=== PATIENT | female | born 1955 | race Caucasian/White ===

== ENCOUNTER 2018-01-05 09:27 | Inpatient (IN) | payer OTHER, MEDICAID ==
[2018-01-05 09:56] LABS: PLATELET COUNT 312 10^3/uL (150-400)
[2018-01-05 10:04] LABS: INR 1.06 (0.83-1.16)
[2018-01-05] MEDS ORDERED: HYDROmorphONE/DILAUDID 1 MG/ML INJ IVP ONE (10:13)
[2018-01-05] MEDS ORDERED: NS 500 ML IV ONE (10:21)
[2018-01-05] MEDS: HYDROmorphONE/DILAUDID 2 MG/ML INJ IVP ONE ×2 (10:36→13:04)
--- NOTE | 2018-01-05 10:39 | EDPHY ---
H & P Time Seen by Provider: 01/05/18 09:32 HPI/ROS: HPI Fell out of bed on Thursday. Left-sided chest wall pain, left wrist pain. 62-year-old female by ambulance. She is with her daughter. This patient reports that she thinks she fell off her bed Thursday night landing hard on her left side and left wrist. Her daughter saw her yesterday and she was complaining of left wrist pain with a deformity and associated ecchymosis as well as left-sided chest wall pain. She refused to come to the hospital at that time. Her pain has worsened overnight and she has increased shortness of breath, she presents with her daughter by ambulance this morning. Patient's last meal was Thursday. ROS: Constitutional: No fever, no chills. As above. Eyes: No discharge. No changes in vision. ENT: No sore throat. No nasal congestion or rhinorrhea. Respiratory: No cough. As above. Cardiac: As above, no palpitations. Gastrointestinal: No abdominal pain, no vomiting, no diarrhea. Genitourinary: No hematuria. No dysuria or increased frequency with urination. Musculoskeletal: No back pain. No neck pain. Left wrist pain and deformity. She denies other extremity pain. Skin: No rashes. Neurological: No headache. No focal weakness or altered sensation. Past medical history: Chronic back pain, she has been on oxycodone and methadone for years secondary to this, depression, GERD, hypothyroidism. Social history: Nonsmoker. She currently lives by herself. Denies alcohol. Her daughter is present with her in the room. Physical Exam: General Appearance: Alert, she appears uncomfortable. This patient is responding to questions appropriately and in full sentences. This patient appears well-hydrated and well-nourished. Head: Normocephalic atraumatic. Face: Facial bones are stable on palpation. Eyes: Pupils equal and round and reactive to light, no pallor or injection. No lid erythema or edema. ENT, Mouth: Mucous membranes moist. Dentition is intact. No malocclusion of the jaw. No tongue lacerations or abrasions. Pharynx is clear. The bilateral nasal canals are clear. No septal hematoma. Respiratory: There are no retractions, lungs are clear to auscultation anteriorly with good air movement bilaterally. Chest wall is stable to AP and lateral palpation but markedly tender on palpation of the left lateral chest wall and lower rib area. No associated ecchymosis. No associated bony step- off or deformity noted on palpation. Cardiovascular: Regular rate and rhythm. No murmur. Gastrointestinal: Abdomen is soft and nontender, no masses, bowel sounds normal. Neurological: Motor sensory function is intact. Cranial nerves are normal. Cerebellar function intact. Skin: Warm and dry, no rashes. No lacerations, abrasions or contusions. Musculoskeletal: Neck is supple and nontender. The trachea is midline. No midline cervical, thoracic, lumbar or sacral tenderness on palpation. No flank tenderness on palpation. Left upper extremity exam: She has diffuse swelling and ecchymosis involving the left hand and left wrist with a Colles fracture deformity of that left wrist. The skin is intact. The left hand is neurovascularly intact. Extremities are symmetrical, full range of motion except noted. All joints in the bilateral upper and bilateral lower extremities range without pain or impingement except noted. No tenderness on palpation of the long bones in the bilateral upper and bilateral lower extremities except noted. Psychiatric: No agitation. No depression. Database: EKG: EKG time is 11:03 a.m.; EKG shows a narrow complex normal sinus rhythm with a ventricular rate of 93. QT interval corrected is prolonged at 520. The RI, QRS intervals are within normal limits. There are no ST-T wave changes indicative of ischemic or injury pattern. No evidence of right heart strain. Interpreted by me. EKG 2. Time 1:01 p.m.; unchanged from previous. Imaging: Left wrist x-ray series: Significant for a Colles fracture with dorsal displacement and shortening of the distal radius. She also has a fracture to the ulnar styloid. Chest x-ray AP portable; the cardiac mediastinal silhouette is unremarkable. No evidence of pneumothorax. Elevation of left hemidiaphragm with left-sided pleural effusion and possible left lower lateral rib fractures. No other acute cardiopulmonary disease process noted. Interpreted by me. CT scan chest with IV contrast: No evidence of pulmonary embolism. She has a small left-sided pleural effusion with associated loculated infiltrate involving the left lower lobe and lingula. No evidence of rib fracture. The spleen is well visualized and is normal. Results were discussed with staff radiologist Dr. Sebastian Bae. Procedures: Procedure: Splint placement. A ortho glass sugar-tong splint was applied left hand and wrist. After application of the splint I returned and re-examined the patient. The splint was adequately immobilizing the joint and distal to the splint the patient's circulation and sensation was intact. Emergency department course: IV was placed. She was placed on a cardiac rehab nurse. She was started on IV normal saline with 500 cc to 1 L to be given over the next hour. She was initially given 0.5 mg of IV hydromorphone. On my evaluation she was still having significant pain. She was given an additional 1 mg of IV hydromorphone. X-rays obtained as above. EKG obtained and reviewed by myself. Left wrist Colles fracture will require ORIF. Left wrist splinted as above. Reduction in the emergency department will only result in re-subluxation. Orthopedics paged. 10:40 a.m., spoke with on-call orthopedic surgeon Dr. Taj Davidson. Case discussed with him. He agrees with emergency department management. He will plan on taking the patient to the OR later this afternoon. Patient will remain NPO in the emergency department. 10:45 a.m., blood work significant for leukocytosis and elevated D-dimer. CT angiogram of the chest pending to evaluate for pulmonary embolism, aspiration pneumonia as well as traumatic injury. The patient is required repeat dosing of her IV hydromorphone for pain control which has been given in 0.5 mg doses. Repeat EKG is unremarkable. A repeat troponin has also been ordered. I do not feel her pain is cardiac related. She has tenderness along the left lower lateral chest wall. This is likely related to her pneumonia and not cardiac. 12:00 p.m., I spoke with the on-call hospitalist Dr. Wilson. Case discussed in detail with him. My concern for probable aspiration pneumonia with pneumonitis was discussed with him. We will start the patient on IV ertapenem in the emergency department. He will see this patient shortly. The patient will be admitted to telemetry. Prior to antibiotic administration blood cultures will be drawn. We have also called and left message with Dr. Taj Davidson explaining that the patient's troponin is elevated and that she will need to be medically cleared by the hospitalist service before she can go to the OR. 2:00 p.m.; I contacted Dr. Taj Davidson who is currently in the OR. He was notified that the patient had an elevated troponin in needed to be medically cleared before she could go to the operating room. 2:30 p.m., repeat troponin is 1.2. Patient's pain is currently well controlled. She has received her IV antibiotics. Left upper extremity in sugar -tong splint. Left upper extremity/hand is neurovascularly intact. Patient will be admitted to the floor shortly. Differential Diagnosis: The differential diagnosis on this patient includes but is not limited to Mechanical fall, left wrist Colles fracture, narcotic pain medication dependent , left-sided rib fractures with left-sided pleural effusion, aspiration pneumonia, myocardial infarction. This represents a partial list of diagnoses considered. These considerations are based on history, physical exam, past history, reassessment and diagnostic testing. Constitutional: Initial Vital Signs Temperature (C) 37 C 01/05/18 09:35 Heart Rate 97 01/05/18 09:35 Respiratory Rate 18 01/05/18 09:35 Blood Pressure 153/116 H 01/05/18 09:35 O2 Sat (%) 90 L 01/05/18 09:35 O2 Delivery Mode Nasal Cannula O2 (L/minute) 3 Allergies/Adverse Reactions: amoxicillin Allergy (Verified 01/05/18 11:24) Hives Sulfa (Sulfonamide Antibiotics) Allergy (Verified 01/05/18 11:24) Itching Home Medications: Medication Instructions Recorded Levothyroxine [Synthroid 150 mcg 150 mcg PO DAILY06 06/18/12 (RX)] Methadone HCl [Methadone HCl 10 mg 30 mg PO TID 06/18/12 (RX)] Pregabalin [Lyrica 50mg (RX)] 50 mg PO TID 07/16/12 Atorvastatin Calcium [Lipitor 10 10 mg PO HS 01/05/18 mg (*)] Ergocalciferol [Vitamin D2 (*)] 50,000 unit PO TH 01/05/18 Promethazine HCl [Phenergan 25mg 25 mg PO DAILY PRN 01/05/18 (*)] Ranitidine HCl [Zantac] 300 mg PO BID 01/05/18 Rizatriptan Benzoate [Maxalt] 10 - 20 mg PO DAILY PRN 01/05/18 SUMAtriptan [Imitrex 50 MG (*)] 50 - 100 mg PO DAILY PRN 01/05/18 Sertraline HCl [Zoloft 100mg (*)] 100 mg PO DAILY 01/05/18 Sucralfate [Carafate 1gm/10ml Oral 1 gm PO QID PRN 01/05/18 Liquid (*)] buPROPion SR [Wellbutrin 150mg SR 150 mg PO DAILY 01/05/18 (*)] oxyCODONE IR [Oxycodone Ir (*)] 15 mg PO Q6HRS PRN 01/05/18 Medical Decision Making - Data Points Laboratory Results: Laboratory Results 01/05/18 09:45 01/05/18 09:45 Microbiology Results: MICROBIOLOGY 01/05/18 01:00 Blood Blood Culture - Preliminary Medications Given: Acetaminophen (Tylenol) 1,000 mg PO Q8HRS [facility] Stop: 07/05/18 21:59 Last Admin: 01/07/18 05:15 Dose: 1,000 mg Aspirin Buffered (Aspirin Ec) 325 mg PO DAILY [facility] Stop: 07/04/18 16:44 Last Admin: 01/07/18 08:36 Dose: 325 mg Atorvastatin Calcium (Lipitor) 10 mg PO HS [facility] Stop: 07/04/18 20:59 Last Admin: 01/06/18 22:11 Dose: 10 mg Bupropion HCl (Wellbutrin Sr) 150 mg PO DAILY [facility] Stop: 07/05/18 08:59 Last Admin: 01/07/18 08:36 Dose: 150 mg Enoxaparin Sodium (Lovenox) 40 mg SC DAILY [facility] Stop: 07/05/18 15:14 Last Admin: 01/07/18 08:35 Dose: 40 mg Ergocalciferol (Vitamin D2) 50,000 i.unit PO TH [facility] Stop: 07/06/18 08:59 Last Admin: 01/07/18 08:36 Dose: 50,000 i.unit Famotidine (Pepcid) 20 mg PO BID [facility] Stop: 07/04/18 20:59 Last Admin: 01/07/18 08:37 Dose: 20 mg Ceftriaxone Sodium/Dextrose (Rocephin 1 Gm (Premix)) 50 mls @ 100 mls/hr IV DAILY [facility] PRN Reason: Protocol Stop: 02/06/18 08:59 Last Admin: 01/07/18 09:59 Dose: 50 mls Metronidazole/Sodium Chloride (Flagyl 500 Mg (Premix)) 100 mls @ 100 mls/hr IV Q8HRS [facility] [place] PRN Reason: Protocol Stop: 02/06/18 07:59 Last Admin: 01/07/18 08:35 Dose: 100 mls Levothyroxine Sodium (Synthroid) 150 mcg PO DAILY06 [facility] [place] Stop: 07/05/18 05:59 Last Admin: 01/07/18 05:15 Dose: 150 mcg Methadone HCl (Methadone Hcl) 30 mg PO TID [facility] Stop: 01/15/18 15:59 Last Admin: 01/07/18 08:37 Dose: 30 mg Nitroglycerin (Nitrostat) 0.4 mg SL Q5M PRN PRN Reason: Chest Pain Stop: 07/04/18 13:59 Last Admin: 01/05/18 14:11 Dose: 0.4 mg Oxycodone HCl (Oxycodone Ir) 5 - 15 mg PO Q6 PRN PRN Reason: Pain, Severe Able to Take PO Stop: 01/16/18 16:36 Last Admin: 01/07/18 05:38 Dose: 5 mg Pregabalin (Lyrica) 50 mg PO TID [facility] Stop: 07/04/18 15:59 Last Admin: 01/07/18 08:36 Dose: 50 mg Sertraline HCl (Zoloft) 100 mg PO DAILY [facility] Stop: 07/05/18 08:59 Last Admin: 01/07/18 08:36 Dose: 100 mg Discontinued Medications Acetaminophen (Tylenol) 650 mg PO Q4HRS PRN PRN Reason: Pain, Mild/Fever, Can Take PO Stop: 07/04/18 14:27 Last Admin: 01/06/18 11:53 Dose: 650 mg Bupivacaine HCl (Sensorcaine 0.5% Vial) Confirm Administered Dose 30 ml .ROUTE .STK-MED ONE Stop: 01/05/18 14:07 Last Admin: 01/05/18 17:40 Dose: Not Given Hydromorphone HCl (Dilaudid) 0.5 mg IVP EDNOW ONE Stop: 01/05/18 10:14 Last Admin: 01/05/18 10:16 Dose: 0.5 mg Hydromorphone HCl (Dilaudid) 1 mg IVP EDNOW ONE Stop: 01/05/18 10:32 Last Admin: 01/05/18 13:04 Dose: 0.5 mg Hydromorphone HCl (Dilaudid) 0.5 mg IVP EDNOW ONE Stop: 01/05/18 11:25 Last Admin: 01/05/18 11:25 Dose: 0.5 mg Sodium Chloride (Ns) 500 mls @ 1,000 mls/hr IV EDNOW ONE PRN Reason: Protocol Stop: 01/05/18 10:50 Last Admin: 01/05/18 10:50 Dose: 500 mls Ertapenem 1 gm/ Sodium (Chloride) 100 mls @ 200 mls/hr IV EDNOW ONE PRN Reason: Protocol Stop: 01/05/18 13:21 Last Admin: 01/05/18 13:30 Dose: 100 mls Potassium Chloride/Sodium Chloride (Ns W/ 20 Kcl/L) 1,000 mls @ 100 mls/hr IV CONT [facility] Stop: 07/04/18 14:29 Last Admin: 01/05/18 16:13 Dose: 1,000 mls Ertapenem 1 gm/ Sodium (Chloride) 100 mls @ 200 mls/hr IV DAILY [facility] PRN Reason: Protocol Stop: 02/05/18 08:59 Last Admin: 01/06/18 09:46 Dose: 100 mls Morphine Sulfate (Morphine) 0.5 - 2 mg IVP Q2 PRN PRN Reason: Pain, Severe Unable to Take PO Stop: 01/15/18 14:23 Last Admin: 01/05/18 16:08 Dose: 2 mg Oxycodone HCl (Oxycodone Ir) 15 mg PO Q6HRS PRN PRN Reason: Pain, Breakthrough Stop: 01/15/18 14:01 Last Admin: 01/06/18 06:03 Dose: 15 mg Potassium Chloride (Klor-Con) 40 meq PO ONCE ONE Stop: 01/07/18 09:44 Last Admin: 01/07/18 10:08 Dose: 40 meq Point of Care Test Results: Chemistry 01/05/18 12:15 POC Troponin I 1.71 ng/mL H ng/mL (0.00-0.08) Departure - Departure Disposition: [facility] Acute Clinical Impression: Left wrist fracture, Elevated troponin, Dehydration, Renal insufficiency, Leukocytosis, Aspiration pneumonia Condition: Fair
[2018-01-05] MEDS ORDERED: IOPAMIDOL (ISOVUE 370) 100 ML BTL IV ONE (10:58)
[2018-01-05] MEDS ORDERED: HYDROmorphONE/DILAUDID 1 MG/ML INJ ONE (11:22)
[2018-01-05] MEDS ORDERED: HYDROmorphONE/DILAUDID 2 MG/ML INJ IVP ONE (11:24)
[2018-01-05] MEDS ORDERED: ERTAPENEM 1 GM in NS 100 ML IV ONE (12:52)
[2018-01-05] MEDS ORDERED: ACETAMINOPHEN 325 MG TAB PO PRN ×2 (13:36→14:28)
[2018-01-05] MEDS ORDERED: METOCLOPRAMIDE 10 MG TAB PO PRN (13:39)
[2018-01-05] MEDS ORDERED: NS 1,000 ML IV SCH (13:45)
[2018-01-05] MEDS ORDERED: NITROGLYCERIN 0.4 MG BTL SL PRN (14:00)
[2018-01-05] MEDS ORDERED: PROMETHAZINE HCL 25 MG TAB PO PRN (14:02)
[2018-01-05] MEDS ORDERED: SUMAtriptan 50 MG TAB PO PRN (14:02)
[2018-01-05] MEDS ORDERED: BUPIVACAINE 0.5% 30 ML SDV ONE (14:06)
[2018-01-05] MEDS ORDERED: NITROGLYCERIN 0.4 MG BTL SL ONE (14:07)
[2018-01-05] MEDS ORDERED: NS W/ 20 KCl/L 1,000 ML IV SCH (14:30)
[2018-01-05 14:36] LABS: CREATINE KINASE 4303 IU/L (0-156)
--- NOTE | 2018-01-05 14:48 | ECHO ---
[email or web address] [address] Main: [phone] Fax: Transthoracic Echocardiogram Name: MALINDA MARTIN MR#: [id number] Study Date: 01/05/2018 Study Time: 02:14 PM Date of : 1955 Age: 62 year(s) Height: 165.1 cm (65 in.) Weight: 77.11 kg (170 lb.) BSA: 1.85 m2 Gender: Female Examination: Echo Indication: eval wall motion Image Quality: Technically Difficult Contrast: Requested by: Neymar Wilson BP: 112 mmHg/75 mmHg Heart Rate: Rhythm: Indication: eval wall motion Procedure Staff District Sales Representative: Ariella Khan RDCS Reading Physician: Wilber Hansen MD Requesting Provider: Conclusions: Normal global systolic LV function. The ejection fraction is visually estimated to be 60 %. No apparent wall motion abnormalities. Technically difficult imaging due to patient body habitus and chest pain - patient moving and unable to lay on side. Mild mitral valve regurgitation is present. Small pericardial effusion. Measurements: Chambers Valvular Assessment AV/MV Valvular Assessment TV/PV Normal Normal Normal Name Value Range Name Value Range Name Value Range Ao Shelley (2D): 2.7 cm (1.4 cm-2.6 AV Vmax: 1.38 m/s (1 m/s-1.7 PV Vmax: 0.92 m/s (0.6 m/s-0.9 cm) m/s) m/s) IVSd (2D): 0.8 cm (0.6 cm-1.1 AV maxP mmHg ( - ) PV PGmax: 3 mmHg ( - ) cm) AV meanP mmHg ( - ) LVDd (2D): 4.4 cm (3.9 cm-5.3 LVOT Vmax: 1.19 m/s (0.7 m/s-1.1 cm) m/s) LVDs (2D): 2.8 cm (2.1 cm-4 TOMY (Vmax): 2.2 cm2 ( - ) cm) TOMY (VTI): 2.4 cm ( - ) LVPWd (2D): 0.9 cm ( - ) MV E Vmax: 0.78 m/s ( - ) LVOTd 1.8 cm 1.8 cm mm MV A Vmax: 1.07 m/s ( - ) Visual EF: 60 % MV E/A: 0.73 ( - ) RVDd(2D): 2.5 cm (1.9 cm-3.8 MV PHT: 0.065 s ( - ) cmmm) MVA (PHT): 3.4 s ( - ) Continued Measurements: Chambers Valvular Assessment AV/MV Name Value Name Value Patient: MALINDA MARTIN Study Date: 01/05/2018 Page 1 of 2 02:14 PM LADs: 3.2 cm MV DecTime: 204 m/s LADs Lon.8 cm MV E/E' Septal: 9.20 LA Area: 12.8 cm2 MV E/E' Lateral: 7.50 Additional Vessels Name Value Ao Ascendin.6 cm Findings: Left Ventricle: Normal size left ventricle. Normal global systolic LV function. The ejection fraction is visually estimated to be 60 %. No apparent wall motion abnormalities. Technically difficult imaging due to patient body habitus and chest pain - patient moving and unable to lay on side. Right Ventricle: Normal size right ventricle. Normal RV function. Mitral Valve: The mitral valve is normal in appearance and function. Mild mitral valve regurgitation is present. Aortic Valve: The aortic valve is tri-leaflet. There is no significant aortic valve regurgitation. No aortic valve stenosis is present. Tricuspid Valve: The tricuspid valve is normal in appearance and function. Pericardium: Small pericardial effusion. (No Signature Object) Patient: MALINDA MARTIN Study Date: 01/05/2018 Page 2 of 2 02:14 PM [id number]
--- NOTE | 2018-01-05 15:04 | CPEKG ---
Test Reason : OPEN Blood Pressure : / mmHG Vent. Rate : 093 BPM Atrial Rate : 094 BPM P-R Int : 151 ms QRS Dur : 100 ms QT Int : 418 ms P-R-T Axes : 078 -36 -40 degrees QTc Int : 520 ms Sinus rhythm Inferior infarct, age indeterminate Prolonged QT interval Confirmed by Ramses Urbina ([id number]) on 01/05/2018 3:03:13 PM Referred By: Confirmed By:Ramses Urbina
--- NOTE | 2018-01-05 15:04 | CPEKG ---
Test Reason : OPEN Blood Pressure : / mmHG Vent. Rate : 091 BPM Atrial Rate : 091 BPM P-R Int : 158 ms QRS Dur : 096 ms QT Int : 432 ms P-R-T Axes : 070 -34 -35 degrees QTc Int : 532 ms Sinus rhythm Inferior infarct, age indeterminate Prolonged QT interval Confirmed by Ramses Urbina ([id number]) on 01/05/2018 3:02:54 PM Referred By: Confirmed By:Ramses Urbina
--- NOTE | 2018-01-05 16:00 | ASMTCMCOM ---
CM Note CM Note Notes: Pt was admitted with elevated troponins and a wrist fx. Apparently she fell out of bed Thursday and did not come to ED. Pt lives alone and has a hx of depression and chronic pain and is prescribed oxycodone and methadone. Pt's daughter Toya lives close by. CM will follow for any d/c needs. Date Signed: 01/05/2018 04:00 PM Electronically Signed By:GENIE Brooks
[2018-01-05] MEDS: METHADONE HCL 10 MG TAB PO SCH ×2 (16:07→21:09)
[2018-01-05] MEDS: PREGABALIN 50 MG CAP PO SCH ×2 (16:08→21:09)
--- NOTE | 2018-01-05 16:12 | PDGENHP ---
History and Physical - Chief Complaint Chest pains - History of Present Illness 62 y/o female with history of chronic back pain, depression, GERD and hypothyroidism presents to the ED with her daughter, Toya, after sustaining a fall Thursday night sometime. The pt cannot recall what time or why it happened , but she fell out of bed and landed hard on her left side. She cannot remember subsequent events. Her daughter brought her to the ED today; she called her mom on Thursday and when she didn't hear from her mother, she went to the house where "it took her a very long time to answer the door." The pt initially resisted help until today. Pt denies SOB, dizziness, N/V, RIVERA. + left lateral chest pains and left wrist pains. The pt is being admitted for further diagnostic work-up. History Information - Allergies/Home Medication List Allergies/Adverse Reactions: amoxicillin Allergy (Verified 01/05/18 11:24) Hives Sulfa (Sulfonamide Antibiotics) Allergy (Verified 01/05/18 11:24) Itching Home Medications: Levothyroxine [Synthroid 150 mcg (RX)] 150 mcg PO DAILY06 06/18/12 [Last Taken 01/05/18] Methadone HCl [Methadone HCl 10 mg (RX)] 30 mg PO TID 06/18/12 [Last Taken 01/05] Pregabalin [Lyrica 50mg (RX)] 50 mg PO TID 07/16/12 [Last Taken 01/05/18] Atorvastatin Calcium [Lipitor 10 mg (*)] 10 mg PO HS 01/05/18 [Last Taken ] Ergocalciferol [Vitamin D2 (*)] 50,000 unit PO TH 01/05/18 [Last Taken 12/31/17] Promethazine HCl [Phenergan 25mg (*)] 25 mg PO DAILY PRN 01/05/18 [Last Taken Unknown] Ranitidine HCl [Zantac] 300 mg PO BID 01/05/18 [Last Taken 01/04/18 21:00] Rizatriptan Benzoate [Maxalt] 10 - 20 mg PO DAILY PRN 01/05/18 [Last Taken Unknown] SUMAtriptan [Imitrex 50 MG (*)] 50 - 100 mg PO DAILY PRN 01/05/18 [Last Taken Unknown] Sertraline HCl [Zoloft 100mg (*)] 100 mg PO DAILY 01/05/18 [Last Taken 01/05/18] Sucralfate [Carafate 1gm/10ml Oral Liquid (*)] 1 gm PO QID PRN 01/05/18 [Last Taken Unknown] buPROPion SR [Wellbutrin 150mg SR (*)] 150 mg PO DAILY 01/05/18 [Last Taken ] oxyCODONE IR [Oxycodone Ir (*)] 15 mg PO Q6HRS PRN 01/05/18 [Last Taken 01/05/18 ] I have personally reviewed and updated: family history, medical history, social history, surgical history - Past Medical History GERD Additional medical history: Chronic back pain, depression, hypothyroidism - Surgical History Reports: hysterectomy, spinal surgery Additional surgical history: 2000 - failed surgery - chronic back pain requiring methadone and oxycodone - Family History Positive for: cancer (Lung CA), father with history of CAD younger than 55, female first degree with premature CAD (Vape pen - nicotine), myocardial infarction (Twin sister of [place]; father of [place]) - Social History Smoking Status: Current every day smoker Alcohol Use: None Drug Use: None Additional social history: Lives by herself. Has [facility] aide visit 3x/ week for assistance. Review of Systems Review of Systems: Lab Data Reviewed WBC 25.29 Hgb: 11.8 Hct: 36.2 D-Dimer: 3.56 BUN: 1250 Trop: 1.71 Imaging Reviewed CXR: Mild left pleural effusion with elevated left hemidiaphragm and compressive atelectatic change at left base EKG: Ventricular rate 93, prolonged QT ECHO: Normal systolic function, estimated EF 60%, no apparent wall abnormalities , mild mitral valve regurgitation, small pericardial effusion CTA Chest/Thorax: No rib fractures, small left pleural effusion, lingula and left lower lobe opacities probably aspiration PNA with mucous plugging, small to moderate hiatal hernia. Wrist XR: Left wrist - comminuted displaced intra-articular fracture of the distal radius, minimally displaced ulnar styloid fracture. Moderate to severe OA at the 1st carpal metacarpal joint. Head CT: no acute intracranial hemorrhage ROS: 10pt was reviewed & negative except for what was stated in HPI & below Constitutional: Reports: chills, recent injury EENMT: Reports: no symptoms Cardiac: Reports: chest pain Respiratory: Reports: no symptoms Gastrointestinal: Reports: no symptoms Genitourinary: Reports: no symptoms Muscolosketal: Reports: back pain (Chronic) Skin: Reports: no symptoms Neurological: Reports: depressed Physical Exam Physical Exam: Temp Pulse Resp BP Pulse Ox 37.1 C 81 20 129/67 H 95 01/05/18 15:15 01/05/18 15:15 01/05/18 15:11 01/05/18 15:15 01/05/18 15:15 O2 (L/minute) 3 Constitutional: uncomfortable, other (Writhing in pain (chest pain); appears sedated but responds appropriately) Eyes: PERRL, anicteric sclera, EOMI Ears, Nose, Mouth, Throat: moist mucous membranes, hearing normal, ears appear normal, no oral mucosal ulcers Cardiovascular: regular rate and rhythym, no murmur, rub, or gallop, pulses symmetric bilaterally, No edema Peripheral Pulses: 2+: dorsalis-pedis (R) (+DF/PF: motor strength 3/5 ), dorsalis-pedis (L) (+DF/PF: motor strength 3/5) Respiratory: reduced air movement (Diminished bilateral bases) Gastrointestinal: normoactive bowel sounds, soft, non-tender abdomen, no palpable masses Genitourinary: no bladder fullness, no bladder tenderness Skin: warm, normal color, no rashes or abrasions, no fluctuance, no induration, No mottled Musculoskeletal: muscular tenderness (Possibly from mechanical injury (anterior left sided chest pain through left lateral side)), generalized weakness, other ( Left arm splinted. L brachial pulse 2+. Cap refill <2 sec. Skin warm.) Neurologic: AAOx3, sensation intact bilaterally, CN II-XII Intact Psychiatric: interacting appropriately, not anxious, not encephalopathic, thought process linear, poor memory Lymph, Heme, Immunologic: no cervical LAD, no supraclavicular LAD Lab Data & Imaging Review 01/05/18 09:45 01/05/18 09:45 WBC 25.29 10^3/uL (3.80-9.50) H 01/05/18 09:45 RBC 4.41 10^6/uL (4.18-5.33) 01/05/18 09:45 Hgb 11.8 g/dL (12.6-16.3) L 01/05/18 09:45 Hct 36.2 % (38.0-47.0) L 01/05/18 09:45 MCV 82.1 fL (81.5-99.8) 01/05/18 09:45 MCH 26.8 pg (27.9-34.1) L 01/05/18 09:45 MCHC 32.6 g/dL (32.4-36.7) 01/05/18 09:45 RDW 15.5 % (11.5-15.2) H 01/05/18 09:45 Plt Count 312 10^3/uL (150-400) 01/05/18 09:45 MPV 10.3 fL (8.7-11.7) 01/05/18 09:45 Neut % (Auto) Not Reported 01/05/18 09:45 Lymph % (Auto) Not Reported 01/05/18 09:45 [place] % (Auto) Not Reported 01/05/18 09:45 Eos % (Auto) Not Reported 01/05/18 09:45 Baso % (Auto) Not Reported 01/05/18 09:45 Nucleat RBC Rel Count Not Reported 01/05/18 09:45 Absolute Neuts (auto) Not Reported 01/05/18 09:45 Absolute Lymphs (auto) Not Reported 01/05/18 09:45 Absolute Monos (auto) Not Reported 01/05/18 09:45 Absolute Eos (auto) Not Reported 01/05/18 09:45 Absolute Basos (auto) Not Reported 01/05/18 09:45 Absolute Nucleated RBC Not Reported 01/05/18 09:45 Immature Gran % Not Reported 01/05/18 09:45 Seg Neutrophils % 80.0 % 01/05/18 09:45 Band Neutrophils % 0.0 % 01/05/18 09:45 Lymphocytes % 12.0 % 01/05/18 09:45 Monocytes % 8.0 % 01/05/18 09:45 Eosinophils % 0.0 % 01/05/18 09:45 Basophils % 0.0 % 01/05/18 09:45 Metamyelocytes % 0.0 % 01/05/18 09:45 Myelocytes % 0.0 % 01/05/18 09:45 Promyelocytes % 0.0 % 01/05/18 09:45 Blast Cells % 0.0 % 01/05/18 09:45 Immature Gran # Not Reported 01/05/18 09:45 Absolute Seg Neuts 20.23 10^3/uL (1.70-6.50) H 01/05/18 09:45 Absolute Band Neuts 0.00 10^3/uL (0.00-0.70) 01/05/18 09:45 Absolute Lymphocytes 3.03 10^3/uL (1.00-3.00) H 01/05/18 09:45 Absolute Monocytes 2.02 10^3/uL (0.30-0.80) H 01/05/18 09:45 Absolute Eosinophils 0.00 10^3/uL (0.03-0.40) L 01/05/18 09:45 Absolute Basophils 0.00 10^3/uL (0.02-0.10) L 01/05/18 09:45 Absolute Metamyelocyte 0.00 10^3/mL (0.00-0.00) 01/05/18 09:45 Absolute Myelocytes 0.00 10^3/mL (0.00-0.00) 01/05/18 09:45 Absolute Promyelocytes 0.00 10^3/uL (0.00-0.00) 01/05/18 09:45 Absolute Plasma Cells 0.00 10^3/uL (0.00-0.00) 01/05/18 09:45 Nucleated RBCs 0 /100 WBC (0-0) 01/05/18 09:45 Absolute Blast Cells 0.00 10^3/uL (0.00-0.00) 01/05/18 09:45 Plasma Cells % 0.0 % 01/05/18 09:45 Platelet Estimate ADEQUATE (ADEQ) 01/05/18 09:45 Polychromasia 1+ H 01/05/18 09:45 Hypochromasia 1+ H 01/05/18 09:45 PT 14.0 SEC (12.0-15.0) 01/05/18 09:45 INR 1.06 (0.83-1.16) 01/05/18 09:45 APTT 24.0 SEC (23.0-38.0) 01/05/18 09:45 D-Dimer 3.56 ug/mLFEU (0.00-0.50) H 01/05/18 09:45 Sodium 136 mEq/L (135-145) 01/05/18 09:45 Potassium 3.4 mEq/L (3.3-5.0) 01/05/18 09:45 Chloride 94 mEq/L (97-110) L 01/05/18 09:45 Carbon Dioxide 31 mEq/l (22-31) 01/05/18 09:45 Anion Gap 11 mEq/L (6-14) 01/05/18 09:45 BUN 31 mg/dL (7-23) H 01/05/18 09:45 Creatinine 1.1 mg/dL (0.6-1.0) H 01/05/18 09:45 Estimated GFR 50 01/05/18 09:45 Glucose 176 mg/dL (70-100) H 01/05/18 09:45 Calcium 9.0 mg/dL (8.5-10.4) 01/05/18 09:45 Creatine Kinase 4303 IU/L (0-156) H 01/05/18 13:03 CK-MB (CK-2) Fraction 7.19 ng/mL (0.00-4.55) H 01/05/18 13:03 CK-MB (CK-2) % 0.2 % (0.0-4.0) 01/05/18 13:03 Creatine Kinase Interp NEGATIVE (NEGATIVE) 01/05/18 13:03 POC Troponin I 1.71 ng/mL (0.00-0.08) H 01/05/18 12:15 Troponin I 1.200 ng/mL (0.000-0.034) H 01/05/18 13:00 NT-Pro-B Natriuret Pep 1250 pg/mL (0-125) H 01/05/18 09:45 TSH 1.890 uIU/mL (0.465-4.680) 01/05/18 10:30 Specimen Hemolysis TNP 01/05/18 11:45 Assessment & Plan Assessment: 62 y/o female with history significant for chronic back pain, depression, GERD, hypothyroidism and family history significant for CAD and [place], is being worked- up for the following: Aspiration pneumonia (Acute) Dehydration (Acute) Elevated troponin (Acute) Left wrist fracture (Acute) Leukocytosis (Acute) Renal insufficiency (Acute) Plan: #Aspiration pneumonia: Left pleural effusion, WBC 25.29, events leading up to and after mechanical unknown but if she has general weakness and was lying on floor for awhile, it is quite possible she aspirated. -Invanz for now -Blood culture -Sputum culture -Streptococcus urine PNA #Dehydration: BUN/creat 31/1.1 -IV fluids #Elevated troponin/cardiac: first troponin was 1.71. Considering where she is experiencing her current pain and her family history, it is prudent to further work this up. BNP 1250. -Cycle trops -Nitroglycerin -Echo -Lipid panel #Left wrist fracture -Ortho consulted and aware -Will wait on surgery until further notice #Leukocytosis: I suspect this is infectious in nature. WBC 25.29 -Blood cultures -Invanz for now -Sputum culture #Renal insufficiency: BUN/creat 31/1.1 Possible dehydration -IV fluids -CBC/CMP tomorrow Code: Full Diet: Regular VTE ppx: SCDs Dispo: Admit to inpatient
--- NOTE | 2018-01-05 16:42 | PDGENHP ---
History and Physical - Chief Complaint Acute chest pain - History of Present Illness Primary care provider: Visiting home physician HPI: 62-year-old female presents with acute left-sided chest pain characterized as sharp, with onset of symptoms sometime after 01/02, and duration persistent thereafter. The patient reports that she sustained a fall from bed on 01/02 and remained down on the ground for approximately 48 hr prior to being able to get herself back into bed. She reports that during that interval she did not have anything to eat or drink and she does endorse that she had some associated trauma in her left upper extremity and left chest. After her fall, she began experiencing pain located in both of those areas and she attempted to alleviate the pain with her home pain medications. When the daughter came to check on her on 01/04, the patient was able to ambulate to the door, and the patient's daughter urged her to seek medical attention. The patient declined, but on the day of this presentation of pain has been escalating such degree that the patient wants help. The patient's daughter does endorse that she appears to be somewhat cognitively below her baseline, with increased confusion and reduced attentiveness. She received 1.5 mg of IV Dilaudid in the emergency department, and this did temporarily alleviate her discomfort. Upon my evaluation of the patient, she is currently writhing in pain. History Information - Allergies/Home Medication List Allergies/Adverse Reactions: amoxicillin Allergy (Verified 01/05/18 11:24) Hives Sulfa (Sulfonamide Antibiotics) Allergy (Verified 01/05/18 11:24) Itching Home Medications: Levothyroxine [Synthroid 150 mcg (RX)] 150 mcg PO DAILY06 06/18/12 [Last Taken 01/05/18] Methadone HCl [Methadone HCl 10 mg (RX)] 30 mg PO TID 06/18/12 [Last Taken 01/05] Pregabalin [Lyrica 50mg (RX)] 50 mg PO TID 07/16/12 [Last Taken 01/05/18] Atorvastatin Calcium [Lipitor 10 mg (*)] 10 mg PO HS 01/05/18 [Last Taken ] Ergocalciferol [Vitamin D2 (*)] 50,000 unit PO TH 01/05/18 [Last Taken 12/31/17] Promethazine HCl [Phenergan 25mg (*)] 25 mg PO DAILY PRN 01/05/18 [Last Taken Unknown] Ranitidine HCl [Zantac] 300 mg PO BID 01/05/18 [Last Taken 01/04/18 21:00] Rizatriptan Benzoate [Maxalt] 10 - 20 mg PO DAILY PRN 01/05/18 [Last Taken Unknown] SUMAtriptan [Imitrex 50 MG (*)] 50 - 100 mg PO DAILY PRN 01/05/18 [Last Taken Unknown] Sertraline HCl [Zoloft 100mg (*)] 100 mg PO DAILY 01/05/18 [Last Taken 01/05/18] Sucralfate [Carafate 1gm/10ml Oral Liquid (*)] 1 gm PO QID PRN 01/05/18 [Last Taken Unknown] buPROPion SR [Wellbutrin 150mg SR (*)] 150 mg PO DAILY 01/05/18 [Last Taken ] oxyCODONE IR [Oxycodone Ir (*)] 15 mg PO Q6HRS PRN 01/05/18 [Last Taken 01/05/18 ] I have personally reviewed and updated: family history, medical history, social history, surgical history - Past Medical History GERD Additional medical history: Chronic back pain, depression, hypothyroidism, cognitive impairment, continuous opiate dependency, migraines, radiculopathy, traumatic brain injury, unintentional opiate overdose in 2013 - Surgical History Reports: hysterectomy, spinal surgery Additional surgical history: 2000 - failed surgery - chronic back pain requiring methadone and oxycodone - Family History Positive for: cancer (Lung CA), father with history of CAD younger than 55, female first degree with premature CAD (Vape pen - nicotine), myocardial infarction (Twin sister of [place]; father of [place]) - Social History Smoking Status: Current every day smoker Alcohol Use: None Drug Use: None Additional social history: Lives by herself. Has [facility] aide visit 3x/ week for assistance. Review of Systems Review of Systems: ROS: 10pt was reviewed & negative except for what was stated in HPI & below Constitutional: Reports: other (Fall) Cardiac: Reports: chest pain Muscolosketal: Reports: other (Left wrist pain) Neurological: Reports: other (Confusion, poor tenderness) Physical Exam Physical Exam: Temp Pulse Resp BP Pulse Ox 37.1 C 81 20 129/67 H 95 01/05/18 15:15 01/05/18 15:15 01/05/18 15:11 01/05/18 15:15 01/05/18 15:15 O2 (L/minute) 3 Constitutional: chronically ill appearing (Appears older than stated age), uncomfortable, unkempt, No not in pain (Moderate) Eyes: PERRL, anicteric sclera, EOMI Ears, Nose, Mouth, Throat: hearing normal, other (Tacky mucous membranes) Cardiovascular: tachycardia, No systolic murmur, No irregularly irregular, No edema Respiratory: reduced air movement (Left base with poor inspiratory effort), rhonchi (On inspiration left-sided), No expiratory wheeze, No bronchial breath sounds Gastrointestinal: normoactive bowel sounds, soft, non-tender abdomen, No distension Skin: other (No abrasions over her head or neck) Musculoskeletal: other (Tenderness over the left side ribs and anterior pectoralis muscles) Neurologic: sensation intact bilaterally, other (Alert awake oriented x2 to person and time not to place), No weakness (Motor strength 5/5 bilateral lower extremities) Psychiatric: encephalopathic (Poor attentiveness), flat affect, agitated, poor memory Lab Data & Imaging Review 01/05/18 09:45 01/05/18 09:45 WBC 25.29 10^3/uL (3.80-9.50) H 01/05/18 09:45 RBC 4.41 10^6/uL (4.18-5.33) 01/05/18 09:45 Hgb 11.8 g/dL (12.6-16.3) L 01/05/18 09:45 Hct 36.2 % (38.0-47.0) L 01/05/18 09:45 MCV 82.1 fL (81.5-99.8) 01/05/18 09:45 MCH 26.8 pg (27.9-34.1) L 01/05/18 09:45 MCHC 32.6 g/dL (32.4-36.7) 01/05/18 09:45 RDW 15.5 % (11.5-15.2) H 01/05/18 09:45 Plt Count 312 10^3/uL (150-400) 01/05/18 09:45 MPV 10.3 fL (8.7-11.7) 01/05/18 09:45 Neut % (Auto) Not Reported 01/05/18 09:45 Lymph % (Auto) Not Reported 01/05/18 09:45 [place] % (Auto) Not Reported 01/05/18 09:45 Eos % (Auto) Not Reported 01/05/18 09:45 Baso % (Auto) Not Reported 01/05/18 09:45 Nucleat RBC Rel Count Not Reported 01/05/18 09:45 Absolute Neuts (auto) Not Reported 01/05/18 09:45 Absolute Lymphs (auto) Not Reported 01/05/18 09:45 Absolute Monos (auto) Not Reported 01/05/18 09:45 Absolute Eos (auto) Not Reported 01/05/18 09:45 Absolute Basos (auto) Not Reported 01/05/18 09:45 Absolute Nucleated RBC Not Reported 01/05/18 09:45 Immature Gran % Not Reported 01/05/18 09:45 Seg Neutrophils % 80.0 % 01/05/18 09:45 Band Neutrophils % 0.0 % 01/05/18 09:45 Lymphocytes % 12.0 % 01/05/18 09:45 Monocytes % 8.0 % 01/05/18 09:45 Eosinophils % 0.0 % 01/05/18 09:45 Basophils % 0.0 % 01/05/18 09:45 Metamyelocytes % 0.0 % 01/05/18 09:45 Myelocytes % 0.0 % 01/05/18 09:45 Promyelocytes % 0.0 % 01/05/18 09:45 Blast Cells % 0.0 % 01/05/18 09:45 Immature Gran # Not Reported 01/05/18 09:45 Absolute Seg Neuts 20.23 10^3/uL (1.70-6.50) H 01/05/18 09:45 Absolute Band Neuts 0.00 10^3/uL (0.00-0.70) 01/05/18 09:45 Absolute Lymphocytes 3.03 10^3/uL (1.00-3.00) H 01/05/18 09:45 Absolute Monocytes 2.02 10^3/uL (0.30-0.80) H 01/05/18 09:45 Absolute Eosinophils 0.00 10^3/uL (0.03-0.40) L 01/05/18 09:45 Absolute Basophils 0.00 10^3/uL (0.02-0.10) L 01/05/18 09:45 Absolute Metamyelocyte 0.00 10^3/mL (0.00-0.00) 01/05/18 09:45 Absolute Myelocytes 0.00 10^3/mL (0.00-0.00) 01/05/18 09:45 Absolute Promyelocytes 0.00 10^3/uL (0.00-0.00) 01/05/18 09:45 Absolute Plasma Cells 0.00 10^3/uL (0.00-0.00) 01/05/18 09:45 Nucleated RBCs 0 /100 WBC (0-0) 01/05/18 09:45 Absolute Blast Cells 0.00 10^3/uL (0.00-0.00) 01/05/18 09:45 Plasma Cells % 0.0 % 01/05/18 09:45 Platelet Estimate ADEQUATE (ADEQ) 01/05/18 09:45 Polychromasia 1+ H 01/05/18 09:45 Hypochromasia 1+ H 01/05/18 09:45 PT 14.0 SEC (12.0-15.0) 01/05/18 09:45 INR 1.06 (0.83-1.16) 01/05/18 09:45 APTT 24.0 SEC (23.0-38.0) 01/05/18 09:45 D-Dimer 3.56 ug/mLFEU (0.00-0.50) H 01/05/18 09:45 Sodium 136 mEq/L (135-145) 01/05/18 09:45 Potassium 3.4 mEq/L (3.3-5.0) 01/05/18 09:45 Chloride 94 mEq/L (97-110) L 01/05/18 09:45 Carbon Dioxide 31 mEq/l (22-31) 01/05/18 09:45 Anion Gap 11 mEq/L (6-14) 01/05/18 09:45 BUN 31 mg/dL (7-23) H 01/05/18 09:45 Creatinine 1.1 mg/dL (0.6-1.0) H 01/05/18 09:45 Estimated GFR 50 01/05/18 09:45 Glucose 176 mg/dL (70-100) H 01/05/18 09:45 Calcium 9.0 mg/dL (8.5-10.4) 01/05/18 09:45 Creatine Kinase 4303 IU/L (0-156) H 01/05/18 13:03 CK-MB (CK-2) Fraction 7.19 ng/mL (0.00-4.55) H 01/05/18 13:03 CK-MB (CK-2) % 0.2 % (0.0-4.0) 01/05/18 13:03 Creatine Kinase Interp NEGATIVE (NEGATIVE) 01/05/18 13:03 POC Troponin I 1.71 ng/mL (0.00-0.08) H 01/05/18 12:15 Troponin I 1.200 ng/mL (0.000-0.034) H 01/05/18 13:00 NT-Pro-B Natriuret Pep 1250 pg/mL (0-125) H 01/05/18 09:45 TSH 1.890 uIU/mL (0.465-4.680) 01/05/18 10:30 Specimen Hemolysis TNP 01/05/18 11:45 Urine Color YELLOW 01/05/18 16:00 Urine Appearance CLEAR 01/05/18 16:00 Urine pH 5.0 (5.0-7.5) 01/05/18 16:00 Ur Specific [place] > 1.035 (1.002-1.030) H 01/05/18 16:00 Urine Protein 1+ (NEGATIVE) H 01/05/18 16:00 Urine Ketones 1+ (NEGATIVE) H 01/05/18 16:00 Urine Blood 1+ (NEGATIVE) H 01/05/18 16:00 Urine Nitrate NEGATIVE (NEGATIVE) 01/05/18 16:00 Urine Bilirubin NEGATIVE (NEGATIVE) 01/05/18 16:00 Urine Urobilinogen NEGATIVE EU (0.2-1.0) 01/05/18 16:00 Ur Leukocyte Esterase TRACE (NEGATIVE) H 01/05/18 16:00 Urine RBC 1-3 /hpf (0-3) 01/05/18 16:00 Urine WBC 5-10 /hpf (0-3) H 01/05/18 16:00 Ur Epithelial Cells TRACE /lpf (NONE-1+) 01/05/18 16:00 Urine Mucus TRACE /lpf (NONE-1+) 01/05/18 16:00 Urine Glucose NEGATIVE (NEGATIVE) 01/05/18 16:00 Visualized and Interpreted imaging results: Yes Interpretation: Chest CT demonstrating left lingular and lower lobe dense airspace disease without rib fracture Visualized and Interpreted EKG results: Yes EKG Interpretation: Positive for: other (Normal sinus rhythm with Q-wave in lead 3 and AVF, T-wave inversion inferiorly) Assessment & Plan Assessment: 62-year-old female presents with acute left-sided chest pain and acute on chronic metabolic encephalopathy secondary to left-sided, suspected aspiration pneumonia complicated by acute NSTEMI Plan: 1. Pneumonia. Present on admission, acute, new problem this provider, further workup indicated. Suspect aspiration with approximately 48 hr of down time, as well as opiate use and mechanical fall with resultant cephalopathy -given her penicillin allergy and severity of illness, will initiate Unasyn 1 g daily and gauge effect -check urine strep, sputum cultures, blood cultures -significant leukocytosis with a white blood cell count [id number], monitor white blood cell count daily -[employer] eval 2. NSTEMI. Suspect type 2 in the setting of likely underlying multivessel disease with extensive family history of premature coronary disease and severe illness on presentation -administered sublingual nitroglycerin in the emergency department without appreciable affect -repeat troponin down trending -monitor for arrhythmia on telemetry sign-empirically give full-dose aspirin, hold on systemic anticoagulation as I suspect this is a type 2 event -stat echocardiogram demonstrating no focal wall motion abnormalities -will trend troponin this evening and tomorrow, consult with Cardiology if up trending -check LDL, hemoglobin A1c -hold on beta-peña given patient's above-mentioned infection, can certainly dose metoprolol tartrate if the patient becomes hypertensive -will need cardiac risk stratification prior to discharge 3. Acute on chronic metabolic encephalopathy. Evidenced by global brain dysfunction characterized as disorientation, confusion, poor attentiveness, beyond her chronic mild cognitive impairment, per her daughter, most likely secondary to the metabolic effects of infection -head CT without any intracranial hemorrhage -no physical exam evidence of stroke -treat infection and monitor mental status -reviewed outside records including 07/19/[address] Oliva Ro, she notes in her discharge summary the patient has a degree of cognitive impairment requiring 24/7 assistance at time of discharge, most likely impacted by the patient's benzodiazepine and opiate use -I suspect the patient will require a penitentiary facility at time of discharge -get PT, OT, cognitive Assessment 4. Chronic pain with continuous opiate dependency. Continue her home dosage of methadone, consider spacing her dosing to twice daily depending on impact on mental status, continue Oxy IR at her baseline to avoid withdrawal 5. Hypothyroidism. Chronic, check TSH given above 6. Radial fracture. Wrist x-ray demonstrating a comminuted, displaced distal radial fracture as well as minimally displaced ulnar fracture -discussed with Dr. Ramses Urbina, I have asked him to communicate with Dr. Davidson that the patient is currently not safe from a cardiac standpoint to proceed with surgical intervention until we have stabilized the above issues -will communicate with Dr. Davidson tomorrow regarding the patient's medical status and when she would be appropriate for surgery -pain control as needed 7. Acute rhabdomyolysis. Mild comma from patient's down time, continue IV fluids and repeat level in a.m. Diet. Regular Prophylaxis. High risk patient Lovenox 40 Code. Full per patient, her daughter is MD KRYS Disposition. Anticipated discharge uncertain this time, anticipated length stay is greater than 4 hr for reasonable medical necessity including acute encephalopathy, and NSTEMI, pneumonia, with high risk for worsening morbidity and/or mortality as outlined above.
[2018-01-05] MEDS ORDERED: METHYL SALICYLATE/MENTHOL OINTMENT TP PRN (16:53)
--- NOTE | 2018-01-05 17:11 | PDMN ---
Medical Necessity Medical necessity: MCG M230 CA -2 days: NSTEMI, M283 PNA due to aspiration, pt reports a fall and down X 2days, acute L sided CP-trop elevated @ 1.71, BNP 1250,CXR shows mild L pleural effusion, leukocytosis, dehydration , acute on chronic metabolic encephalopathy, chronic pain, radial fx-new- not safe from cardiac standpoint to proceed with surgical intervention- , acute rhabdomyolysis( Cr. Kinase [id number]) , anticipate > 2 MN ongoing med nec care, further eval and tx.
[2018-01-05] MEDS: ASPIRIN EC 325 MG TAB PO SCH (17:40)
[2018-01-05] MEDS: FAMOTIDINE 20 MG TAB PO SCH (21:09)
[2018-01-05] MEDS: ATORVASTATIN CALCIUM 10 MG TAB PO SCH (21:09)
[2018-01-06] MEDS: oxyCODONE IR 15 MG TAB PO PRN ×2 (00:27→06:03)
[2018-01-06 04:21] LABS: PLATELET COUNT 250 10^3/uL (150-400)
[2018-01-06] MEDS: LEVOTHYROXINE 150 MCG TAB PO SCH (06:03)
--- NOTE | 2018-01-06 08:10 | GCON ---
REASON FOR CONSULTATION: Left wrist injury. HISTORY RELATIVE TO CONSULTATION: The patient is a 62-year-old with a history of chronic pain, who s ustained a fall 3 days prior. She presented to the hospital with complaints including left wrist aziza n. She is right-hand dominant. PHYSICAL EXAMINATION: There is swelling with apex volar deformity of her wrist. Her distal neurovas cular exam is grossly intact. She has tenderness over her distal radius. IMAGING: AP and lateral radiographs of her wrist show evidence of a dorsally displaced distal radius fracture. ASSESSMENT: Left distal radius fracture. PLAN: Based on the displaced unstable nature of her injury, it was recommended that operative treatm ent consisting of open reduction, internal fixation be pursued. This was initially scheduled for , but the patient had elevated troponin levels, and therefore medically was not cleared for surgery . Management of her fracture will be addressed when she is medically cleared. Until then, she will remain in her forearm splint. /[id number]/MODL
[2018-01-06] MEDS ORDERED: ERTAPENEM 1 GM in NS 100 ML IV SCH (09:00)
[2018-01-06] MEDS: PREGABALIN 50 MG CAP PO SCH ×3 (09:44→22:09)
[2018-01-06] MEDS: METHADONE HCL 10 MG TAB PO SCH ×3 (09:44→22:09)
[2018-01-06] MEDS: ASPIRIN EC 325 MG TAB PO SCH (09:46)
[2018-01-06] MEDS: FAMOTIDINE 20 MG TAB PO SCH ×2 (09:46→22:11)
[2018-01-06] MEDS: SERTRALINE HCL 100 MG TAB PO SCH (09:46)
[2018-01-06] MEDS: buPROPion SR 150 MG TAB PO SCH (09:46)
[2018-01-06] MEDS: ENOXAPARIN 40 MG/0.4 ML SYR SC SCH (16:03)
--- NOTE | 2018-01-06 16:35 | HOSPPROG ---
Hospitalist Progress Note Assessment/Plan: Assessment: 62-year-old female presents with L side chest pain / suspected aspiration PNA c/b suspected type II NSTEMI, all of which likely occurred s/p unwitnessed fall and prolonged down time (likely from oversedation from opiates). She also sustained L radial/ulnar fxr, which will require surgical intervention when safe from a medical standpoint. Currently allowing PNA to improve, planning on stress test on Thursday, and then likely surgery w/ Dr. Davidson. Plan: 1. Suspected aspiration Pneumonia. Present on admission, suspect aspiration with approximately 48 hr of down time, as well as opiate use and mechanical fall with resultant encephalopathy -patient reports hives to amoxicillin, adjust from invanz today to CTX/ metronidazole in AM -D#2/-7 of Abx, depending on resolution of leukocytosis and chest pain -WBC 16,800, repeat in AM 2. NSTEMI. Suspect type 2 in the setting of likely underlying multivessel disease with extensive family history of premature coronary disease and severe illness on presentation -cont ASA -LDL 63, no indication for statin -A1c pending -plan for ish nuc on 01/08 3. Acute on chronic metabolic encephalopathy. Evidenced by global brain dysfunction characterized as disorientation, confusion, poor attentiveness, beyond her chronic mild cognitive impairment, per her daughter, most likely secondary to the metabolic effects of infection -head CT without any intracranial hemorrhage -reviewed outside records (DC summary by Dr. Oliva Ro from 2012) indicate that patient has baseline cog impairment, and it was recommended she have 24/7 care on DC at that time, suspect her DC will be similar this time -get PT, OT, cognitive Assessment 4. Chronic pain with continuous opiate dependency. Continue her home dosage of methadone, consider spacing her dosing to twice daily depending on impact on mental status, continue Oxy IR at her baseline to avoid withdrawal 5. Hypothyroidism. Chronic, TSH stable 6. Radial fracture. Wrist x-ray demonstrating a comminuted, displaced distal radial fracture as well as minimally displaced ulnar fracture -appreciate consultation by Dr. Davidson, I recommend holding on ORIF until PNA has been sufficiently treated to avoid hardware infxn and getting cardiac risk stratification before as well 7. Acute rhabdomyolysis. Resolved Diet. Regular Prophylaxis. High risk patient Lovenox 40 Code. Full per patient, her daughter is MD MARCANO Disposition. Anticipated discharge uncertain this time, likely to require SNF Subjective: patient reports ongoing L chest pain Objective: Vital Signs Temp Pulse Resp BP Pulse Ox 36.3 C 75 20 101/85 H 93 01/06/18 12:00 01/06/18 12:00 01/06/18 12:00 01/06/18 12:00 01/06/18 12:00 Laboratory Results 01/06/18 03:00 01/06/18 03:00 01/05/18 01/06/18 01/07/18 05:59 05:59 05:59 Intake Total 2900 200 Output Total 1400 300 Balance 1500 -100 PT 14.0 SEC (12.0-15.0) 01/05/18 09:45 INR 1.06 (0.83-1.16) 01/05/18 09:45 - Physical Exam Constitutional: chronically ill appearing, uncomfortable, unkempt, other ( appears older than stated age), No not in pain (mild) Cardiovascular: regular rate and rhythym, no murmur, rub, or gallop, No edema Respiratory: reduced air movement (L mid lateral segment), rhonchi (on insp left ), No expiratory wheeze, No bronchial breath sounds, No respiratory distress Gastrointestinal: normoactive bowel sounds, soft, non-tender abdomen, No distension Neurologic: AAOx3, other (mild paresthesias L finger tips), No facial droop Psychiatric: not anxious, flat affect, other (concentration 7/7 w/ prompting, lethargic but arousable), No agitated ICD10 Worksheet Patient Problems: Problems Problem Status Onset Left wrist fracture Acute Elevated troponin Acute Dehydration Acute Renal insufficiency Acute Leukocytosis Acute Aspiration pneumonia Acute
[2018-01-06] MEDS: ACETAMINOPHEN 500 MG TAB PO SCH (22:11)
[2018-01-06] MEDS: ATORVASTATIN CALCIUM 10 MG TAB PO SCH (22:11)
[2018-01-07 04:44] LABS: PLATELET COUNT 284 10^3/uL (150-400)
[2018-01-07] MEDS: ACETAMINOPHEN 500 MG TAB PO SCH ×3 (05:15→21:47)
[2018-01-07] MEDS: LEVOTHYROXINE 150 MCG TAB PO SCH (05:15)
[2018-01-07] MEDS: oxyCODONE IR 5 MG TAB PO PRN ×2 (05:38→14:24)
[2018-01-07] MEDS: ENOXAPARIN 40 MG/0.4 ML SYR SC SCH (08:35)
[2018-01-07] MEDS: buPROPion SR 150 MG TAB PO SCH (08:36)
[2018-01-07] MEDS: PREGABALIN 50 MG CAP PO SCH ×3 (08:36→21:50)
[2018-01-07] MEDS: ASPIRIN EC 325 MG TAB PO SCH (08:36)
[2018-01-07] MEDS: ERGOCALCIFEROL 50,000 I.UNIT CAP PO SCH (08:36)
[2018-01-07] MEDS: SERTRALINE HCL 100 MG TAB PO SCH (08:36)
[2018-01-07] MEDS: METHADONE HCL 10 MG TAB PO SCH ×3 (08:37→21:49)
[2018-01-07] MEDS: FAMOTIDINE 20 MG TAB PO SCH ×2 (08:37→21:51)
[2018-01-07] MEDS ORDERED: POTASSIUM CL 20 MEQ TAB PO ONE (09:43)
--- NOTE | 2018-01-07 09:44 | HOSPPROG ---
Hospitalist Progress Note Assessment/Plan: 62-year-old female presents with L side chest pain 2/2 suspected aspiration PNA c/b suspected type II NSTEMI, all of which likely occurred s/p unwitnessed fall and prolonged down time (likely from oversedation from opiates). She also sustained L radial/ulnar fxr, which will require surgical intervention when safe from a medical standpoint. Currently allowing PNA to improve, planning on stress test on Thursday, and then likely surgery w/ Dr. Davidson. Plan: 1. Suspected aspiration Pneumonia. Present on admission, suspect aspiration with approximately 48 hr of down time, as well as opiate use and mechanical fall with resultant encephalopathy -patient reports hives to amoxicillin, switched from invanz to CTX/ metronidazole on 01/06/2018 -D#3/5-7 of Abx, depending on resolution of leukocytosis and chest pain -WBC 12.5 this AM, continue to monitor 2. NSTEMI. Suspect type 2 in the setting of likely underlying multivessel disease with extensive family history of premature coronary disease and severe illness on presentation -cont ASA -LDL 63, no indication for statin -A1c pending -plan for ish nuc on 01/08, NPO after midnight 3. Acute on chronic metabolic encephalopathy. Evidenced by global brain dysfunction characterized as disorientation, confusion, poor attentiveness, beyond her chronic mild cognitive impairment, per her daughter, most likely secondary to the metabolic effects of infection -head CT without any intracranial hemorrhage -reviewed outside records (DC summary by Dr. Oliva Ro from 2012) indicate that patient has baseline cog impairment, and it was recommended she have 24/7 care on DC at that time, suspect her DC will be similar this time -get PT, OT, cognitive Assessment 4. Chronic pain with continuous opiate dependency. Continue her home dosage of methadone, consider spacing her dosing to twice daily depending on impact on mental status, continue Oxy IR at her baseline to avoid withdrawal 5. Hypothyroidism. Chronic, TSH stable 6. Radial fracture. Wrist x-ray demonstrating a comminuted, displaced distal radial fracture as well as minimally displaced ulnar fracture -appreciate consultation by Dr. Davidson, I recommend holding on ORIF until PNA has been sufficiently treated to avoid hardware infxn and getting cardiac risk stratification before as well 7. Acute rhabdomyolysis. Resolved Diet. Regular Prophylaxis. High risk patient Lovenox 40 Code. Full per patient, her daughter is MD MARCANO Disposition. Anticipated discharge uncertain this time, likely to require SNF Subjective: Patient reports mild SOB this morning Objective: Vital Signs Temp Pulse Resp BP Pulse Ox 36.9 C 68 12 126/71 H 96 01/07/18 09:32 01/07/18 09:32 01/07/18 09:32 01/07/18 09:32 01/07/18 09:32 Laboratory Results 01/07/18 03:12 01/07/18 03:12 01/06/18 01/07/18 01/08/18 05:59 05:59 05:59 Intake Total 2900 900 Output Total 1400 700 Balance 1500 200 PT 14.0 SEC (12.0-15.0) 01/05/18 09:45 INR 1.06 (0.83-1.16) 01/05/18 09:45 - Physical Exam Constitutional: no apparent distress Eyes: PERRL Ears, Nose, Mouth, Throat: moist mucous membranes Cardiovascular: regular rate and rhythym Respiratory: no respiratory distress, reduced air movement Gastrointestinal: soft, non-tender abdomen Skin: warm Musculoskeletal: generalized weakness Psychiatric: interacting appropriately ICD10 Worksheet Patient Problems: Problems Problem Status Onset Aspiration pneumonia Acute Dehydration Acute Elevated troponin Acute Left wrist fracture Acute Leukocytosis Acute Renal insufficiency Acute
--- NOTE | 2018-01-07 12:14 | ASMTCMCOM ---
CM Note CM Note Notes: Pts case discussed w/ Sindi RN regarding d/c POC. Therapies are recommending SNF. CM met w/ pt for dispo planning. CM provided pt w/ senior blue book. Pt would like CM to call her daughter to discuss it further w/ her. CM spoke to Toya, daughter. She would like referrals made to [facility] and [facility]. Referrals sent. Toya will research facilities and let CM know. CM completed triggered PAS[facility] and sent it to [facility]. CM to follow. Plan: SNF Date Signed: 01/07/2018 12:13 PM Electronically Signed By:NATHALIE Ramirez
[2018-01-07] MEDS ORDERED: ERGOCALCIFEROL 50,000 I.UNIT CAP PO SCH (14:02)
[2018-01-07] MEDS: ATORVASTATIN CALCIUM 10 MG TAB PO SCH (21:49)
[2018-01-08 04:11] LABS: PLATELET COUNT 286 10^3/uL (150-400)
[2018-01-08] MEDS: ACETAMINOPHEN 500 MG TAB PO SCH ×3 (05:24→21:55)
[2018-01-08] MEDS: LEVOTHYROXINE 150 MCG TAB PO SCH (05:24)
[2018-01-08] MEDS: METHADONE HCL 10 MG TAB PO SCH ×3 (07:45→21:56)
[2018-01-08] MEDS: FAMOTIDINE 20 MG TAB PO SCH ×2 (07:45→21:55)
[2018-01-08] MEDS: SERTRALINE HCL 100 MG TAB PO SCH (07:45)
[2018-01-08] MEDS: ASPIRIN EC 325 MG TAB PO SCH (07:45)
[2018-01-08] MEDS: PREGABALIN 50 MG CAP PO SCH ×3 (07:45→21:56)
[2018-01-08] MEDS: buPROPion SR 150 MG TAB PO SCH (07:45)
[2018-01-08] MEDS ORDERED: PROTOCOL POTASSIUM 1 DOSE MISC PRN (08:44)
[2018-01-08] MEDS ORDERED: REGADENOSON 0.4 MG/5 ML SYR IVP ONE (09:26)
[2018-01-08] MEDS ORDERED: POTASSIUM CL 10 MEQ TAB PO ONE ×2 (10:30→19:38)
[2018-01-08] MEDS: oxyCODONE IR 5 MG TAB PO PRN (11:02)
[2018-01-08] MEDS: CALCIUM CARBONATE 500 MG CHEWABLE TAB PO PRN ×3 (11:40→22:20)
--- NOTE | 2018-01-08 12:50 | HOSPPROG ---
Hospitalist Progress Note Assessment/Plan: 62-year-old female presents with L side chest pain 2/2 suspected aspiration PNA c/b suspected type II NSTEMI, all of which likely occurred s/p unwitnessed fall and prolonged down time (likely from oversedation from opiates). She also sustained L radial/ulnar fxr, which will require surgical intervention when safe from a medical standpoint. Currently allowing PNA to improve, planning on stress test on Thursday, and then likely surgery w/ Dr. Davidson. Plan: 1. Suspected aspiration Pneumonia. Present on admission, suspect aspiration with approximately 48 hr of down time, as well as opiate use and mechanical fall with resultant encephalopathy -patient reports hives to amoxicillin, switched from invanz to CTX/ metronidazole on 01/06/2018 -D#4/7 of Abx -WBC 11.7 this AM, continue to monitor 2. NSTEMI. Suspect type 2 in the setting of likely underlying multivessel disease with extensive family history of premature coronary disease and severe illness on presentation -cont ASA -LDL 63, no indication for statin -A1c pending -plan for ish nuc today, results pending 3. Acute on chronic metabolic encephalopathy. Evidenced by global brain dysfunction characterized as disorientation, confusion, poor attentiveness, beyond her chronic mild cognitive impairment, per her daughter, most likely secondary to the metabolic effects of infection -head CT without any intracranial hemorrhage -reviewed outside records (DC summary by Dr. Oliva Ro from 2012) indicate that patient has baseline cog impairment, and it was recommended she have 24/7 care on DC at that time, suspect her DC will be similar this time -get PT, OT, cognitive Assessment 4. Chronic pain with continuous opiate dependency. Continue her home dosage of methadone, consider spacing her dosing to twice daily depending on impact on mental status, continue Oxy IR at her baseline to avoid withdrawal 5. Hypothyroidism. Chronic, TSH stable 6. Radial fracture. Wrist x-ray demonstrating a comminuted, displaced distal radial fracture as well as minimally displaced ulnar fracture -appreciate consultation by Dr. Davidson, I recommend holding on ORIF until PNA has been sufficiently treated to avoid hardware infxn and getting cardiac risk stratification before as well 7. Acute rhabdomyolysis. Resolved Diet. Regular Prophylaxis. High risk patient Lovenox 40 Code. Full per patient, her daughter is MD MARCANO Disposition. Anticipated discharge uncertain this time, likely to require SNF Subjective: Patient reports no complaints this AM Objective: Vital Signs Temp Pulse Resp BP Pulse Ox 36.8 C 82 19 102/61 93 01/08/18 12:06 01/08/18 12:06 01/08/18 12:06 01/08/18 12:06 01/08/18 12:06 Laboratory Results 01/08/18 03:05 01/08/18 03:05 01/07/18 01/08/18 01/09/18 05:59 05:59 05:59 Intake Total 900 1170 Output Total 700 850 Balance 200 320 PT 14.0 SEC (12.0-15.0) 01/05/18 09:45 INR 1.06 (0.83-1.16) 01/05/18 09:45 - Physical Exam Constitutional: no apparent distress Eyes: PERRL Ears, Nose, Mouth, Throat: moist mucous membranes Cardiovascular: regular rate and rhythym Respiratory: reduced air movement Gastrointestinal: soft, non-tender abdomen Skin: warm Musculoskeletal: pain with ROM Neurologic: AAOx3 Psychiatric: interacting appropriately ICD10 Worksheet Patient Problems: Problems Problem Status Onset Aspiration pneumonia Acute Dehydration Acute Elevated troponin Acute Left wrist fracture Acute Leukocytosis Acute Renal insufficiency Acute
[2018-01-08] MEDS: ENOXAPARIN 40 MG/0.4 ML SYR SC SCH (13:44)
--- NOTE | 2018-01-08 14:14 | ASMTCMCOM ---
CM Note CM Note Notes: Pts case discussed w/ Dr. Roman. Pt is getting a stress test today. Pt will get surgery at some point during this hospitalization. CM spoke to pts daughter Toya regarding placement. Toya would like to go with [facility]. [facility] is out of network w/ pt. [facility] called Toya and informed her of this. Mary Carmen from [facility] will be calling Toya. CM to touch base tomorrow once Toya tours [facility]. CM to follow. Plan: SNF Date Signed: 01/08/2018 02:13 PM Electronically Signed By:NATHALIE Ramirez
--- NOTE | 2018-01-08 15:13 | CPR ---
DATE OF PROCEDURE: 01/08/2018 PROCEDURE: Nuclear Lexiscan treadmill. REASON FOR TEST: Chest pain. Q-waves in inferior leads. Resting blood pressure 106/58. Oxygen saturation 93%. She is on oxygen at 3 L. Heart rate 71. She has chest discomfort intermittently prior to procedure. STRESS PORTION: Lexiscan was injected, followed by saline flush. Cardiolite was then injected, foll owed by saline flush. She did become symptomatic with flushing, headache, back pain, general discomf ort. There were no EKG changes. Blood pressure 110/54, peak blood pressure 88, oxygen saturation 92 %. RECOVERY: EKG remained stable. Recovery blood pressure 108/50, oxygen saturation 90%, heart rate 87 . Symptoms subsiding with caffeine. At this time, she currently is stable for nuclear imaging. /[id number]/MODL
[2018-01-08] MEDS ORDERED: MAGNESIUM HYDROXIDE 30 ML UDCUP PO PRN (15:46)
[2018-01-08] MEDS ORDERED: POLYETHYLENE GLYCOL 3350 17 GM PKT PO PRN (15:46)
[2018-01-08] MEDS ORDERED: LACTULOSE 20 GM/30 ML UDCUP PO PRN (15:46)
[2018-01-08] MEDS ORDERED: BISACODYL 10 MG SUPP PR PRN (15:46)
--- NOTE | 2018-01-08 16:27 | ASMTCMCOM ---
CM Note CM Note Notes: Malachi (P# [phone], press option 2 then [id number]) called from [facility] regarding this pts case. Apparently [facility], [facility] and [facility] have all started auth when CM haved inform them to hold off. MARCK spoke to daughter Toya and informed her that she does not need to go w/ a facility that is out of network if she does not want to. Toya will tour [facility] tomorrow. CM informed Toya that all SNFs have accepted pt. CM to follow. Date Signed: 01/08/2018 04:26 PM Electronically Signed By:NATHALIE Ramirez
[2018-01-08] MEDS ORDERED: POTASSIUM CL 10 MEQ TAB ONE (21:52)
[2018-01-08] MEDS: SENNOSIDES/DOCUSATE SODIUM TAB PO SCH (21:56)
[2018-01-08] MEDS: ATORVASTATIN CALCIUM 10 MG TAB PO SCH (21:56)
[2018-01-08] MEDS ORDERED: CANN-EASE 2 GM TUBE TP ONE (22:26)
[2018-01-09 05:27] LABS: PLATELET COUNT 349 10^3/uL (150-400)
[2018-01-09] MEDS: ACETAMINOPHEN 500 MG TAB PO SCH ×3 (06:05→22:53)
[2018-01-09] MEDS: LEVOTHYROXINE 150 MCG TAB PO SCH (06:06)
[2018-01-09] MEDS: ENOXAPARIN 40 MG/0.4 ML SYR SC SCH (07:50)
[2018-01-09] MEDS: METHADONE HCL 10 MG TAB PO SCH ×3 (07:50→22:53)
[2018-01-09] MEDS: SENNOSIDES/DOCUSATE SODIUM TAB PO SCH ×2 (07:51→22:53)
[2018-01-09] MEDS: buPROPion SR 150 MG TAB PO SCH (07:51)
[2018-01-09] MEDS: PREGABALIN 50 MG CAP PO SCH ×3 (07:51→22:53)
[2018-01-09] MEDS: SERTRALINE HCL 100 MG TAB PO SCH (07:51)
[2018-01-09] MEDS: ASPIRIN EC 325 MG TAB PO SCH (07:52)
[2018-01-09] MEDS: FAMOTIDINE 20 MG TAB PO SCH ×2 (07:52→22:53)
[2018-01-09] MEDS ORDERED: POTASSIUM CL 10 MEQ TAB PO ONE ×2 (08:10→20:01)
--- NOTE | 2018-01-09 10:00 | PDCARCONS ---
Cardiology Consult Reason for Consult: Positive troponin. Pleuritic chest pain Chief Complaint: Fall. Pleuritic chest pain Requesting Physician: Daniel Roman MD History of Present Illness: Asked to see patient by Dr. Roman. 62 F who had fall from elevated bed with LUE fracture, could not get back in bed for 12 hours, then was bedridden for atleast 48 hrs. She had a troponin checked on elevation which was elevated with downward trend during hospitalization. No exertional chest pain, but reports chest pain L precordial with coughing and deep inspiration History Information - Allergies/Home Medication List Allergies/Adverse Reactions: amoxicillin Allergy (Verified 01/05/18 11:24) Hives Sulfa (Sulfonamide Antibiotics) Allergy (Verified 01/05/18 11:24) Itching Home Medications: Levothyroxine [Synthroid 150 mcg (RX)] 150 mcg PO DAILY06 06/18/12 [Last Taken 01/05/18] Methadone HCl [Methadone HCl 10 mg (RX)] 30 mg PO TID 06/18/12 [Last Taken 01/05] Pregabalin [Lyrica 50mg (RX)] 50 mg PO TID 07/16/12 [Last Taken 01/05/18] Atorvastatin Calcium [Lipitor 10 mg (*)] 10 mg PO HS 01/05/18 [Last Taken ] Ergocalciferol [Vitamin D2 (*)] 50,000 unit PO TH 01/05/18 [Last Taken 12/31/17] Promethazine HCl [Phenergan 25mg (*)] 25 mg PO DAILY PRN 01/05/18 [Last Taken Unknown] Ranitidine HCl [Zantac] 300 mg PO BID 01/05/18 [Last Taken 01/04/18 21:00] Rizatriptan Benzoate [Maxalt] 10 - 20 mg PO DAILY PRN 01/05/18 [Last Taken Unknown] SUMAtriptan [Imitrex 50 MG (*)] 50 - 100 mg PO DAILY PRN 01/05/18 [Last Taken Unknown] Sertraline HCl [Zoloft 100mg (*)] 100 mg PO DAILY 01/05/18 [Last Taken 01/05/18] Sucralfate [Carafate 1gm/10ml Oral Liquid (*)] 1 gm PO QID PRN 01/05/18 [Last Taken Unknown] buPROPion SR [Wellbutrin 150mg SR (*)] 150 mg PO DAILY 01/05/18 [Last Taken ] oxyCODONE IR [Oxycodone Ir (*)] 15 mg PO Q6HRS PRN 01/05/18 [Last Taken 01/05/18 ] Past Medical History: - Social History Smoking Status: Current every day smoker Alcohol Use: None Drug Use: None Physical Exam Physical Exam: Temp Pulse Resp BP Pulse Ox 37.2 C 67 12 114/54 L 95 01/09/18 07:57 01/09/18 07:57 01/09/18 07:57 01/09/18 07:57 01/09/18 07:57 O2 (L/minute) 3.0 Constitutional: obese Eyes: PERRL, EOMI Ears, Nose, Mouth, Throat: moist mucous membranes, hearing normal Cardiovascular: regular rate and rhythym, no murmur, rub, or gallop Respiratory: no respiratory distress, reduced air movement Gastrointestinal: normoactive bowel sounds, soft, non-tender abdomen Neurologic: AAOx3 Psychiatric: interacting appropriately, not anxious, not encephalopathic Lab and Imaging 01/09/18 03:09 01/09/18 03:09 WBC 14.51 10^3/uL (3.80-9.50) H 01/09/18 03:09 RBC 3.58 10^6/uL (4.18-5.33) L 01/09/18 03:09 Hgb 9.5 g/dL (12.6-16.3) L 01/09/18 03:09 Hct 30.7 % (38.0-47.0) L 01/09/18 03:09 MCV 85.8 fL (81.5-99.8) 01/09/18 03:09 MCH 26.5 pg (27.9-34.1) L 01/09/18 03:09 MCHC 30.9 g/dL (32.4-36.7) L 01/09/18 03:09 RDW 15.9 % (11.5-15.2) H 01/09/18 03:09 Plt Count 349 10^3/uL (150-400) 01/09/18 03:09 MPV 10.1 fL (8.7-11.7) 01/09/18 03:09 Neut % (Auto) 61.3 % (39.3-74.2) 01/09/18 03:09 Lymph % (Auto) 21.2 % (15.0-45.0) 01/09/18 03:09 [place] % (Auto) 13.9 % (4.5-13.0) H 01/09/18 03:09 Eos % (Auto) 1.7 % (0.6-7.6) 01/09/18 03:09 Baso % (Auto) 0.3 % (0.3-1.7) 01/09/18 03:09 Nucleat RBC Rel Count 0.2 % (0.0-0.2) 01/09/18 03:09 Absolute Neuts (auto) 8.89 10^3/uL (1.70-6.50) H 01/09/18 03:09 Absolute Lymphs (auto) 3.08 10^3/uL (1.00-3.00) H 01/09/18 03:09 Absolute Monos (auto) 2.02 10^3/uL (0.30-0.80) H 01/09/18 03:09 Absolute Eos (auto) 0.25 10^3/uL (0.03-0.40) 01/09/18 03:09 Absolute Basos (auto) 0.04 10^3/uL (0.02-0.10) 01/09/18 03:09 Absolute Nucleated RBC 0.03 10^3/uL (0-0.01) H 01/09/18 03:09 Immature Gran % 1.6 % (0.0-1.1) H 01/09/18 03:09 Seg Neutrophils % 72.0 % 01/07/18 03:12 Band Neutrophils % 3.0 % 01/07/18 03:12 Lymphocytes % 11.0 % 01/07/18 03:12 Monocytes % 4.0 % 01/07/18 03:12 Eosinophils % 6.0 % 01/07/18 03:12 Basophils % 0.0 % 01/07/18 03:12 Metamyelocytes % 3.0 % 01/07/18 03:12 Myelocytes % 1.0 % 01/07/18 03:12 Promyelocytes % 0.0 % 01/07/18 03:12 Blast Cells % 0.0 % 01/07/18 03:12 Immature Gran # 0.23 10^3/uL (0.00-0.10) H 01/09/18 03:09 Absolute Seg Neuts 9.00 10^3/uL (1.70-6.50) H 01/07/18 03:12 Absolute Band Neuts 0.38 10^3/uL (0.00-0.70) 01/07/18 03:12 Absolute Lymphocytes 1.38 10^3/uL (1.00-3.00) 01/07/18 03:12 Absolute Monocytes 0.50 10^3/uL (0.30-0.80) 01/07/18 03:12 Absolute Eosinophils 0.75 10^3/uL (0.03-0.40) H 01/07/18 03:12 Absolute Basophils 0.00 10^3/uL (0.02-0.10) L 01/07/18 03:12 Absolute Metamyelocyte 0.38 10^3/mL (0.00-0.00) H 01/07/18 03:12 Absolute Myelocytes 0.13 10^3/mL (0.00-0.00) H 01/07/18 03:12 Absolute Promyelocytes 0.00 10^3/uL (0.00-0.00) 01/07/18 03:12 Absolute Plasma Cells 0.00 10^3/uL (0.00-0.00) 01/07/18 03:12 Nucleated RBCs 2.0 /100 WBC (0-0) H 01/07/18 03:12 RBC/WBC/PLT Morphology TNP 01/09/18 03:09 Absolute Blast Cells 0.00 10^3/uL (0.00-0.00) 01/07/18 03:12 Plasma Cells % 0.0 % 01/07/18 03:12 Platelet Estimate TNP 01/09/18 03:09 Polychromasia 1+ H 01/06/18 03:00 Hypochromasia 1+ H 01/06/18 03:00 Microcytic Cells 1+ H 01/07/18 03:12 PT 14.0 SEC (12.0-15.0) 01/05/18 09:45 INR 1.06 (0.83-1.16) 01/05/18 09:45 APTT 24.0 SEC (23.0-38.0) 01/05/18 09:45 D-Dimer 3.56 ug/mLFEU (0.00-0.50) H 01/05/18 09:45 Sodium 139 mEq/L (135-145) 01/09/18 03:09 Potassium 3.8 mEq/L (3.3-5.0) 01/09/18 03:09 Chloride 99 mEq/L (97-110) 01/09/18 03:09 Carbon Dioxide 33 mEq/l (22-31) H 01/09/18 03:09 Anion Gap 7 mEq/L (6-14) 01/09/18 03:09 BUN 15 mg/dL (7-23) 01/09/18 03:09 Creatinine 0.8 mg/dL (0.6-1.0) 01/09/18 03:09 Estimated GFR > 60 01/09/18 03:09 Glucose 99 mg/dL (70-100) 01/09/18 03:09 Hemoglobin A1c 6.3 % (4.0-6.0) H 01/06/18 03:00 Estim Average Glucose 134 mg/dL (68-126) H 01/06/18 03:00 Calcium 8.2 mg/dL (8.5-10.4) L 01/09/18 03:09 Total Bilirubin 0.3 mg/dL (0.1-1.4) 01/09/18 03:09 AST 36 IU/L (14-46) 01/09/18 03:09 ALT 88 IU/L (9-52) H 01/09/18 03:09 Alkaline Phosphatase 178 IU/L (38-126) H 01/09/18 03:09 Creatine Kinase 4303 IU/L (0-156) H 01/05/18 13:03 CK-MB (CK-2) Fraction 7.19 ng/mL (0.00-4.55) H 01/05/18 13:03 CK-MB (CK-2) % 0.2 % (0.0-4.0) 01/05/18 13:03 Creatine Kinase Interp NEGATIVE (NEGATIVE) 01/05/18 13:03 POC Troponin I 1.71 ng/mL (0.00-0.08) H 01/05/18 12:15 Troponin I 0.697 ng/mL (0.000-0.034) H 01/06/18 03:00 NT-Pro-B Natriuret Pep 1250 pg/mL (0-125) H 01/05/18 09:45 Total Protein 4.5 g/dL (6.3-8.2) L 01/09/18 03:09 Albumin 2.3 g/dL (3.5-5.0) L 01/09/18 03:09 Triglycerides 115 mg/dL (35-135) 01/06/18 03:00 Cholesterol 116 mg/dL (140-220) L 01/06/18 03:00 Cholesterol Risk Factr 0.8 (0.2-1.0) 01/06/18 03:00 LDL Cholesterol, Calc 63 mg/dL (80-100) L 01/06/18 03:00 LDL Risk Factor 0.8 (0.2-1.0) 01/06/18 03:00 VLDL Cholesterol 23 mg/dL (8-25) 01/06/18 03:00 Non-HDL Cholesterol 86 mg/dL (90-129) L 01/06/18 03:00 HDL Cholesterol 30 mg/dL (40-85) L 01/06/18 03:00 LDL/HDL Ratio 2.10 RATIO (1.00-3.22) 01/06/18 03:00 Cholesterol/HDL Ratio 3.87 RATIO (1.00-4.44) 01/06/18 03:00 TSH 1.890 uIU/mL (0.465-4.680) 01/05/18 10:30 Specimen Hemolysis TNP 01/05/18 11:45 Urine Color YELLOW 01/05/18 16:00 Urine Appearance CLEAR 01/05/18 16:00 Urine pH 5.0 (5.0-7.5) 01/05/18 16:00 Ur Specific [place] > 1.035 (1.002-1.030) H 01/05/18 16:00 Urine Protein 1+ (NEGATIVE) H 01/05/18 16:00 Urine Ketones 1+ (NEGATIVE) H 01/05/18 16:00 Urine Blood 1+ (NEGATIVE) H 01/05/18 16:00 Urine Nitrate NEGATIVE (NEGATIVE) 01/05/18 16:00 Urine Bilirubin NEGATIVE (NEGATIVE) 01/05/18 16:00 Urine Urobilinogen NEGATIVE EU (0.2-1.0) 01/05/18 16:00 Ur Leukocyte Esterase TRACE (NEGATIVE) H 01/05/18 16:00 Urine RBC 1-3 /hpf (0-3) 01/05/18 16:00 Urine WBC 5-10 /hpf (0-3) H 01/05/18 16:00 Ur Epithelial Cells TRACE /lpf (NONE-1+) 01/05/18 16:00 Urine Mucus TRACE /lpf (NONE-1+) 01/05/18 16:00 Urine Glucose NEGATIVE (NEGATIVE) 01/05/18 16:00 Urine Opiates Screen 3395 ng/mL (NEGATIVE) 01/05/18 16:50 Urine Barbiturates NEGATIVE ng/mL (NEGATIVE) 01/05/18 16:50 Ur Phencyclidine Scrn NEGATIVE ng/mL (NEGATIVE) 01/05/18 16:50 Ur Amphetamines Screen NEGATIVE ng/mL (NEGATIVE) 01/05/18 16:50 U Benzodiazepines Scrn NEGATIVE ng/mL (NEGATIVE) 01/05/18 16:50 Urine Cocaine Screen NEGATIVE ng/mL (NEGATIVE) 01/05/18 16:50 U Marijuana (THC) Screen NEGATIVE ng/mL (NEGATIVE) 01/05/18 16:50 Urine Ethyl Alcohol NEGATIVE (NEGATIVE) 01/05/18 16:50 Ur Strep pneumoniae Ag Negative (Negative) 01/05/18 16:50 EKG Interpretation: Positive for: normal sinsus rhythm, NS ST wave abnormalities Telemetry: Sinus rhythm A/P Assessment: 1. Chronic pain, opiate use 2. Acute rhabdoymyolysis post fall and incapacitation 3. Rib pain 4. L radial fracture 5. Chest pain Plan: Chest pain is noncardiac based on exam, related to rib contusion from fall. Did have trace pericardial effusion on initial echo, would re-check prior to discharge. Pericarditis may be contributing to chest pain. Troponin elevation is likely related to rhabdomyolysis + hypotension/cardiac hypoperfusion - stress testing showed no definite evidence of ischemia. Would have patient follow up with general cardiology as outpatient Will sign off, please call us if needed
--- NOTE | 2018-01-09 12:14 | HOSPPROG ---
Hospitalist Progress Note Assessment/Plan: 62-year-old female presents with L side chest pain 2/2 suspected aspiration PNA c/b suspected type II NSTEMI, all of which likely occurred s/p unwitnessed fall and prolonged down time (likely from oversedation from opiates). She also sustained L radial/ulnar fxr, which will require surgical intervention when safe from a medical standpoint. Currently allowing PNA to improve, planning on stress test on Thursday, and then likely surgery w/ Dr. Davidson. Plan: 1. Suspected aspiration Pneumonia. Present on admission, suspect aspiration with approximately 48 hr of down time, as well as opiate use and mechanical fall with resultant encephalopathy -patient reports hives to amoxicillin, switched from invanz to CTX/ metronidazole on 01/06/2018 -D#5/7 of Abx -WBC 14.5 this AM, continue to monitor 2. NSTEMI. Suspect type 2 in the setting of likely underlying multivessel disease with extensive family history of premature coronary disease and severe illness on presentation -cont ASA -LDL 63, no indication for statin -A1c pending -S/p MPS on 01/08 which was a technically limited study which did not reveal any convincing evidence of myocardial ischemia - Consulted cardiology this AM to evaluate, they recommend patient follow up with general cardiology as outpatient 3. Acute on chronic metabolic encephalopathy. Evidenced by global brain dysfunction characterized as disorientation, confusion, poor attentiveness, beyond her chronic mild cognitive impairment, per her daughter, most likely secondary to the metabolic effects of infection, has improved -head CT without any intracranial hemorrhage -reviewed outside records (DC summary by Dr. Oliva Ro from 2012) indicate that patient has baseline cog impairment, and it was recommended she have 24/7 care on DC at that time, suspect her DC will be similar this time -PT, OT, cognitive Assessment 4. Chronic pain with continuous opiate dependency. Continue her home dosage of methadone, consider spacing her dosing to twice daily depending on impact on mental status, continue Oxy IR at her baseline to avoid withdrawal 5. Hypothyroidism. Chronic, TSH stable 6. Radial fracture. Wrist x-ray demonstrating a comminuted, displaced distal radial fracture as well as minimally displaced ulnar fracture -Seen Dr. Davidson, who recommends surgical repair, delayed due to infection and cardiac concerns - Patient now s/p 5 days of IV abx and cleared from a cardiac standpoint - Discussed with Dr. Fabricio Montemayor this AM, he will relay message to Dr. Davidson's group, will await their recommendations 7. Acute rhabdomyolysis. Resolved Diet. Regular Prophylaxis. High risk patient Lovenox 40 Code. Full per patient, her daughter is MD MARCANO Disposition. Anticipated discharge uncertain this time, pending surgical corrected of L radial fx, ikely to require SNF after Subjective: Patient reports no complaints this AM Objective: Vital Signs Temp Pulse Resp BP Pulse Ox 36.9 C 77 10 L 130/68 H 94 01/09/18 11:02 01/09/18 11:02 01/09/18 11:02 01/09/18 11:02 01/09/18 11:02 Laboratory Results 01/09/18 03:09 01/09/18 03:09 01/08/18 01/09/18 01/10/18 05:59 05:59 04:59 Intake Total 1170 780 Output Total 850 900 600 Balance 320 -120 -600 PT 14.0 SEC (12.0-15.0) 01/05/18 09:45 INR 1.06 (0.83-1.16) 01/05/18 09:45 - Physical Exam Constitutional: no apparent distress Eyes: PERRL Ears, Nose, Mouth, Throat: moist mucous membranes Cardiovascular: regular rate and rhythym Respiratory: reduced air movement Gastrointestinal: soft, non-tender abdomen Skin: normal color Musculoskeletal: pain with ROM Neurologic: AAOx3 Psychiatric: interacting appropriately ICD10 Worksheet Patient Problems: Problems Problem Status Onset Aspiration pneumonia Acute Dehydration Acute Elevated troponin Acute Left wrist fracture Acute Leukocytosis Acute Renal insufficiency Acute
[2018-01-09] MEDS: oxyCODONE IR 5 MG TAB PO PRN (14:09)
[2018-01-09] MEDS ORDERED: POTASSIUM CL 10 MEQ TAB ONE (22:49)
[2018-01-09] MEDS: ATORVASTATIN CALCIUM 10 MG TAB PO SCH (22:53)
[2018-01-10 04:00] LABS: PLATELET COUNT 371 10^3/uL (150-400)
[2018-01-10] MEDS: ACETAMINOPHEN 500 MG TAB PO SCH ×3 (06:35→22:49)
[2018-01-10] MEDS: LEVOTHYROXINE 150 MCG TAB PO SCH (06:36)
[2018-01-10] MEDS: ENOXAPARIN 40 MG/0.4 ML SYR SC SCH (07:10)
[2018-01-10] MEDS: FAMOTIDINE 20 MG TAB PO SCH ×2 (07:15→20:12)
[2018-01-10] MEDS: ASPIRIN EC 325 MG TAB PO SCH (07:15)
[2018-01-10] MEDS: SERTRALINE HCL 100 MG TAB PO SCH (08:00)
[2018-01-10] MEDS: buPROPion SR 150 MG TAB PO SCH (08:00)
[2018-01-10] MEDS: PREGABALIN 50 MG CAP PO SCH ×3 (08:00→22:49)
[2018-01-10] MEDS: METHADONE HCL 10 MG TAB PO SCH ×3 (08:00→22:48)
[2018-01-10] MEDS: SENNOSIDES/DOCUSATE SODIUM TAB PO SCH ×2 (08:03→20:12)
[2018-01-10] MEDS ORDERED: POTASSIUM CL 10 MEQ TAB PO ONE (08:15)
[2018-01-10] MEDS ORDERED: BUPIVACAINE 0.5% 30 ML SDV ONE (09:35)
[2018-01-10] MEDS ORDERED: ceFAZolin 2 GM/DEXTROSE 100 ML IV ONE (09:44)
[2018-01-10] MEDS ORDERED: CEFAZOLIN 2 GM/DEXTROSE/100 ML BAG IV ONE (09:47)
--- NOTE | 2018-01-10 09:47 | POSTOPPROG ---
Post Op Note Date of Operation: 01/10/18 Surgeon: Taj Davidson Anesthesia: LMA Pre-op Diagnosis: L distal radius fx Post-op Diagnosis: same Procedure: ORIF L Distal radius fx Inf/Abcess present in the surg proc area at time of surgery?: No EBL: Minimal
[2018-01-10] MEDS ORDERED: fentaNYL 100 MCG/2 ML INJ ONE ×2 (10:03→11:43)
[2018-01-10] MEDS ORDERED: PROPOFOL 200 MG/20 ML VIAL ONE (10:03)
[2018-01-10] MEDS ORDERED: LIDOCAINE 2% 2 ML INJ ONE ×2 (10:03)
[2018-01-10] MEDS ORDERED: ROPIVACAINE HCL 150 MG/30 ML INJ ONE (10:07)
[2018-01-10] MEDS ORDERED: DEXAMETHASONE 4 MG/ML VIAL ONE (10:08)
[2018-01-10] MEDS ORDERED: ONDANSETRON 4 MG/2 ML VIAL ONE (10:08)
--- NOTE | 2018-01-10 10:43 | PDANEPAE ---
ANE History of Present Illness left distal radius ORIF ANE Past Medical History - Cardiovascular History Hx Hypertension: No Hx Arrhythmias: No Hx Chest Pain: No Hx Coronary Artery / Peripheral Vascular Disease: Yes Hx CHF / Valvular Disease: No Hx Palpitations: No - Pulmonary History Hx Oxygen in Use at Home: Yes O2 in Use at Home (L/minute): 1 Hx Sleep Apnea: Yes Sleep Apnea Screening Result - Last Documented: Positive - Endocrine History Hx Diabetes: No Obesity: yes - Chronic Pain History Chronic Pain: Yes ANE Review of Systems Review of systems is: negative Review of Systems: ANE Patient History - Allergies Allergies/Adverse Reactions: amoxicillin Allergy (Verified 01/05/18 11:24) Hives Sulfa (Sulfonamide Antibiotics) Allergy (Verified 01/05/18 11:24) Itching - Home Medications Home medications: home medication list seen and reviewed Home Medications: Levothyroxine [Synthroid 150 mcg (RX)] 150 mcg PO DAILY06 06/18/12 [Last Taken 01/05/18] Methadone HCl [Methadone HCl 10 mg (RX)] 30 mg PO TID 06/18/12 [Last Taken 01/05] Pregabalin [Lyrica 50mg (RX)] 50 mg PO TID 07/16/12 [Last Taken 01/05/18] Atorvastatin Calcium [Lipitor 10 mg (*)] 10 mg PO HS 01/05/18 [Last Taken ] Ergocalciferol [Vitamin D2 (*)] 50,000 unit PO TH 01/05/18 [Last Taken 12/31/17] Promethazine HCl [Phenergan 25mg (*)] 25 mg PO DAILY PRN 01/05/18 [Last Taken Unknown] Ranitidine HCl [Zantac] 300 mg PO BID 01/05/18 [Last Taken 01/04/18 21:00] Rizatriptan Benzoate [Maxalt] 10 - 20 mg PO DAILY PRN 01/05/18 [Last Taken Unknown] SUMAtriptan [Imitrex 50 MG (*)] 50 - 100 mg PO DAILY PRN 01/05/18 [Last Taken Unknown] Sertraline HCl [Zoloft 100mg (*)] 100 mg PO DAILY 01/05/18 [Last Taken 01/05/18] Sucralfate [Carafate 1gm/10ml Oral Liquid (*)] 1 gm PO QID PRN 01/05/18 [Last Taken Unknown] buPROPion SR [Wellbutrin 150mg SR (*)] 150 mg PO DAILY 01/05/18 [Last Taken ] oxyCODONE IR [Oxycodone Ir (*)] 15 mg PO Q6HRS PRN 01/05/18 [Last Taken 01/05/18 ] - NPO status NPO Since - Liquids (Date): 01/09/18 NPO Since - Liquids (Time): 00:00 NPO Since - Solids (Date): 01/09/18 NPO Since - Solids (Time): 00:00 - Anes Hx Anes Hx: no prior problems - Smoking Hx Smoking Status: Current every day smoker - Alcohol Use Alcohol Use: None ANE Labs/Vital Signs - Labs Result Diagrams: 01/10/18 03:05 01/10/18 03:05 - Vital Signs Blood Pressure: 103/63 Heart Rate: 64 Respiratory Rate: 18 O2 Sat (%): 94 Height: 165.1 cm Weight: 81.647 kg ANE Physical Exam - Airway Neck exam: FROM Mallampati Score: Class 2 Mouth exam: normal dental/mouth exam - Pulmonary Pulmonary: no respiratory distress - Cardiovascular Cardiovascular: regular rate and rhythym - ASA Status ASA Status: III ANE Anesthesia Plan Anesthesia Plan: GA w LMA Regional Anesthesia: single shot NB, supraclavicular BP NB Urgent/Emergent Case: Hero fernandez completed preop but documented later for safe timely pt care
--- NOTE | 2018-01-10 10:44 | POSTANESTH ---
Post Anesthetic Evaluation Cardiovascular Status: Normal, Stable Respiratory Status: Normal, Stable Level of Consciousness/Mental Status: Can Participate in Eval, Alert and Oriented Pain Control: Adequate, Prn Tx Ordered
[2018-01-10] MEDS ORDERED: ALBUTEROL 3 ML DEYVIAL IH PRN (11:39)
[2018-01-10] MEDS ORDERED: DEXAMETHASONE 4 MG/ML VIAL IVP PRN (11:39)
[2018-01-10] MEDS ORDERED: ACETAMINOPHEN 500 MG TAB PO PRN (11:39)
[2018-01-10] MEDS ORDERED: LR 500 ML IV PRN (11:39)
[2018-01-10] MEDS ORDERED: NALOXONE HCL 0.4 MG/ML INJ IVP PRN (11:39)
[2018-01-10] MEDS ORDERED: HYDROCODONE/APAP 5/325 TAB PO PRN (11:39)
[2018-01-10] MEDS ORDERED: DIAZEPAM 5 MG/ML 1 ML SYR IVP PRN (11:39)
[2018-01-10] MEDS ORDERED: HYDROmorphONE/DILAUDID 2 MG/ML INJ IVP PRN (11:39)
[2018-01-10] MEDS ORDERED: oxyCODONE IR 5 MG TAB PO PRN (11:39)
[2018-01-10] MEDS ORDERED: ONDANSETRON 4 MG/2 ML VIAL IVP PRN (11:39)
[2018-01-10] MEDS: fentaNYL 100 MCG/2 ML INJ IVP PRN ×2 (11:46→12:09)
--- NOTE | 2018-01-10 12:14 | HOSPPROG ---
Hospitalist Progress Note Assessment/Plan: 62-year-old female presents with L side chest pain 2/2 suspected aspiration PNA c/b suspected type II NSTEMI, all of which likely occurred s/p unwitnessed fall and prolonged down time (likely from oversedation from opiates). She also sustained L radial/ulnar fxr, which will require surgical intervention when safe from a medical standpoint. Currently allowing PNA to improve, planning on stress test on Thursday, and then likely surgery w/ Dr. Davidson. Plan: 1. Suspected aspiration Pneumonia. Present on admission, suspect aspiration with approximately 48 hr of down time, as well as opiate use and mechanical fall with resultant encephalopathy -patient reports hives to amoxicillin, switched from invanz to CTX/ metronidazole on 01/06/2018 -D#6/7 of Abx -WBC 13.6 this AM, continue to monitor 2. NSTEMI. Suspect type 2 in the setting of likely underlying multivessel disease with extensive family history of premature coronary disease and severe illness on presentation -cont ASA -LDL 63, no indication for statin -S/p MPS on 01/08 which was a technically limited study which did not reveal any convincing evidence of myocardial ischemia - Consulted cardiology on 01/09, they recommend patient follow up with general cardiology as outpatient 3. Acute on chronic metabolic encephalopathy. Evidenced by global brain dysfunction characterized as disorientation, confusion, poor attentiveness, beyond her chronic mild cognitive impairment, per her daughter, most likely secondary to the metabolic effects of infection, has improved -head CT without any intracranial hemorrhage -reviewed outside records (DC summary by Dr. Oliva Ro from 2012) indicate that patient has baseline cog impairment, and it was recommended she have 24/7 care on DC at that time, suspect her DC will be similar this time -PT, OT, cognitive Assessment 4. Chronic pain with continuous opiate dependency. Continue her home dosage of methadone, consider spacing her dosing to twice daily depending on impact on mental status, continue Oxy IR at her baseline to avoid withdrawal 5. Hypothyroidism. Chronic, TSH stable 6. Radial fracture. Wrist x-ray demonstrating a comminuted, displaced distal radial fracture as well as minimally displaced ulnar fracture -Seen Dr. Davidson, who recommends surgical repair, delayed due to infection and cardiac concerns - Patient now s/p 5 days of IV abx and cleared from a cardiac standpoint - S/p OR today 7. Acute rhabdomyolysis. Resolved Diet. Regular Prophylaxis. High risk patient Lovenox 40 Code. Full per patient, her daughter is MD MARCANO Disposition. Anticipated discharge uncertain this time, likely to require SNF after Subjective: Patient reports rib pain with deep breaths Objective: Vital Signs Temp Pulse Resp BP Pulse Ox 36.6 C 64 11 L 108/88 H 91 L 01/10/18 11:29 01/10/18 10:44 01/10/18 11:59 01/10/18 11:59 01/10/18 11:59 Laboratory Results 01/10/18 03:05 01/10/18 03:05 01/09/18 01/10/18 01/11/18 06:59 05:59 05:59 Intake Total 150 Output Total 5 Balance 145 PT 14.0 SEC (12.0-15.0) 01/05/18 09:45 INR 1.06 (0.83-1.16) 01/05/18 09:45 - Physical Exam Constitutional: no apparent distress Eyes: PERRL Ears, Nose, Mouth, Throat: moist mucous membranes Cardiovascular: regular rate and rhythym Respiratory: no respiratory distress Gastrointestinal: soft, non-tender abdomen Genitourinary: No espino in urethra Skin: warm Musculoskeletal: pain with ROM Neurologic: AAOx3 Psychiatric: interacting appropriately ICD10 Worksheet Patient Problems: Problems Problem Status Onset Aspiration pneumonia Acute Dehydration Acute Elevated troponin Acute Left wrist fracture Acute Leukocytosis Acute Renal insufficiency Acute
[2018-01-10] MEDS: oxyCODONE IR 5 MG TAB PO PRN ×2 (13:18→20:11)
[2018-01-10] MEDS: SUCRALFATE 1 GM/10 ML UDCUP PO PRN ×2 (13:19→23:14)
[2018-01-10] MEDS: ATORVASTATIN CALCIUM 10 MG TAB PO SCH (20:10)
[2018-01-10] MEDS: CALCIUM CARBONATE 500 MG CHEWABLE TAB PO PRN (20:10)
[2018-01-10 22:03] LABS: CREATINE KINASE 123 IU/L (0-156)
[2018-01-10] MEDS ORDERED: PANTOPRAZOLE SODIUM 40 MG VIAL IVP ONE (22:31)
--- NOTE | 2018-01-11 00:28 | HOSPPROG ---
Hospitalist Progress Note Assessment/Plan: Hospitalist Night Float Note DOS: 01/10/18 Notified by RN regarding patient with c/o severe heartburn and central chest pain. Patient underwent repair of radial fracture earlier today. Patient seen and bedside and appears uncomfortable but not in any acute distress. significant Pallor which patient reports is baseline skin tone. She c/o central chest pain that radiates bilaterally across chest with inspiration and movement and some pain down arm localized at her surgical site mostly. she also notes severe heartburn symptoms and has not yet had her evening medications. RN initiated chest pain protocol was in place. troponin negative. ekg showed persistent q waves and t wave inversions in the inferior leads. New compared to ekg 01/05/18 q waves in anteroseptal leads and twave inversions in the anterolateral leads. voltage in pre-cordial leads also diminished. patient evening GI meds ordered as well as 4mg of morphine. Patient noted resolution of heartburn and chest pain nearly resolved 1-2/10 down from 10/16. repeat ekg obtained following pain meds and after pain improved. CXR was also obtained in setting of known small pericardiac effusion and pleural effusion/pneumonia. repeat xray shows large paraneumonic effusion/atelectasis. this was reviewed with the patient. she would be amenable to intervention/thoracentesis. Chart reviewed and patient with pre-operative cardiac evaluation and Nuc stress did not show signs of ischemia. cardiology consult also concluded patient chest pain 2/2 pleuritic component or pericarditis. they did recommend a repeat echo before discharge. Plan - patient sx currently resolved and comfortable. VS stable and saturating well with supplemental oxygen. sx likely GI and pleuritic in nature. echo for AM. initial trop negative but will repeat with AM labs to monitor. Paged placed to tone cabinet assembler cardiology provider for additional recs. given neg stress testing not likely cardiac however recommended serial troponin. total critical care time 45 minutes in direct patient care and discussion with consultants. Objective: Vital Signs Temp Pulse Resp BP Pulse Ox 36.9 C 78 18 131/73 H 95 01/10/18 23:42 01/10/18 23:42 01/10/18 23:42 01/10/18 23:42 01/10/18 23:42 Laboratory Results 01/10/18 03:05 01/10/18 18:55 01/09/18 01/10/18 01/11/18 06:59 05:59 05:59 Intake Total 350 Output Total 105 Balance 245 PT 14.0 SEC (12.0-15.0) 01/05/18 09:45 INR 1.06 (0.83-1.16) 01/05/18 09:45 ICD10 Worksheet Patient Problems: Problems Problem Status Onset Aspiration pneumonia Acute Dehydration Acute Elevated troponin Acute Left wrist fracture Acute Leukocytosis Acute Renal insufficiency Acute
[2018-01-11] MEDS: oxyCODONE IR 5 MG TAB PO PRN ×3 (01:02→20:25)
[2018-01-11] MEDS: ACETAMINOPHEN 500 MG TAB PO SCH ×3 (05:44→22:09)
[2018-01-11] MEDS: LEVOTHYROXINE 150 MCG TAB PO SCH (05:44)
[2018-01-11 05:46] LABS: PLATELET COUNT 425 10^3/uL (150-400)
--- NOTE | 2018-01-11 05:59 | SOAPPROG ---
SOAP Progress Note Assessment/Plan: Assessment: S/P ORIF L Distal radius fx Pain tolerable LUE Splint intact fingers with good cap refill No sign of Carpal tunnel syndrome Plan: Encourage finger motion OK for D/C from ortho standpoint F/U 01/18/18. Call for appt 01/11/18 05:54 Objective: Vital Signs Temp Pulse Resp BP Pulse Ox 36.8 C 70 16 102/61 95 01/11/18 04:00 01/11/18 04:00 01/11/18 04:00 01/11/18 04:00 01/11/18 04:00 Laboratory Results 01/11/18 04:25 01/11/18 04:25 01/09/18 01/10/18 01/11/18 06:59 05:59 05:59 Intake Total 1300 Output Total 705 Balance 595 PT 14.0 SEC (12.0-15.0) 01/05/18 09:45 INR 1.06 (0.83-1.16) 01/05/18 09:45 ICD10 Worksheet Patient Problems: Problems Problem Status Onset Aspiration pneumonia Acute Dehydration Acute Elevated troponin Acute Left wrist fracture Acute Leukocytosis Acute Renal insufficiency Acute
--- NOTE | 2018-01-11 08:11 | GOP ---
DATE OF OPERATION: 01/10/2018 SURGEON: Taj Davidson MD NEUROSURGEON: Taj Davidson MD ANESTHESIA: General plus scalene nerve block performed by the anesthesiologist at my request for pos toperative pain management. PREOPERATIVE DIAGNOSIS: 1. Left distal radius fracture (three-part intra-articular). 2. Left ulnar styloid fracture. POSTOPERATIVE DIAGNOSIS: 1. Left distal radius fracture (three-part intra-articular). 2. Left ulnar styloid fracture. PROCEDURE PERFORMED: 1. Open reduction, internal fixation, left three-part intra-articular distal radius fracture. 2. Closed treatment left ulnar styloid fracture. 3. Intraoperative use of fluoroscopy. FINDINGS: ESTIMATED BLOOD LOSS: Minimal. INDICATIONS: The patient is a 62-year-old who almost 1 week prior sustained a fall on her left (nond ominant and outstretched hand). She sustained a displaced distal radius fracture. Operative treatme nt consisting of open reduction, internal fixation was recommended based on the significant displacem ent. Surgery was delayed pending resolution of cardiac issues. The patient acknowledged she underst ood the potential risks of the operation including, but not limited to bleeding, infection, neurovasc ular damage leading to loss of limb and limb function, malunion, nonunion, need for hardware removal, pain or functional limitations despite operative treatment and anesthetic risks. She acknowledged s he understood the potential risks, planned procedure, and postoperative plan well, and had all questi ons answered prior to surgery. She gave her consent for the operative procedure. DESCRIPTION OF PROCEDURE: The patient is brought in the operating room after IV antibiotics were adm inistered. Nerve block was administered by the anesthesiologist at my request for postoperative pain management. Tourniquet was placed on the left upper arm, and the left upper extremity was prepped a nd draped in standard sterile fashion. After marking the incision, an Singh wrap exsanguination tourni quet was inflated to 250. The volar approach was utilized for exposure. Skin and subcutaneous tissu e were sharply incised. Sharp dissection was carried through the flexor retinaculum. Dissection was carried adjacent to the flexor carpi radialis, exposing the volar aspect of the distal radius. The fracture site was identified and limited freeing of interposed tissue with a fine-tipped curette was performed. Closed reduction maneuver was performed with favorable reduction achieved. A volar dista l radius plate ([email or web address]) was placed on the volar aspect and provisionally secured with an olive pin. Plate position was confirmed to be optimal. A 2.7 mm bicortical screw was placed in the oblique hol e in the shaft of the plate. The distal fragment was then anatomically reduced to the plate and held correcting for length, flexion and radial translation, which was present initially. The intra-artic ular segments were compressed. Distal fixation was accomplished with multiple 2.7 mm cortical lockin g screws, gaining favorable purchase radially and ulnarly in all segments. An additional 2.4 mm bryanna ical locking screw was then placed in the shaft of the plate. Fluoroscopic views confirmed favorable reduction and hardware placement. Attention was directed toward closure. The ulnar styloid fracture was well aligned and left without fixation. The volar retinaculum was closed with 2-0 Vicryl suture in interrupted fashion. The tourn iquet was deflated and bleeding controlled. The subcutaneous tissue closed with 3-0 Vicryl suture in interrupted fashion. Skin closed with 4-0 nylon interrupted sutures. Marcaine 0.5% without epineph rine was injected in the wound sites. The patient was placed in a volar splint and taken to the [facility] very room, extubated in stable condition postoperatively. All sponge, needle, and instrument counts were reported as being correct. DRAINS: None. COMPLICATIONS: None. PLAN: The patient would be admitted for medical management. /[id number]/MODL
[2018-01-11] MEDS: FAMOTIDINE 20 MG TAB PO SCH ×2 (08:22→20:26)
[2018-01-11] MEDS: ENOXAPARIN 40 MG/0.4 ML SYR SC SCH (08:22)
[2018-01-11] MEDS: SERTRALINE HCL 100 MG TAB PO SCH (08:23)
[2018-01-11] MEDS: METHADONE HCL 10 MG TAB PO SCH ×3 (08:23→22:09)
[2018-01-11] MEDS: ASPIRIN EC 325 MG TAB PO SCH (08:23)
[2018-01-11] MEDS: SENNOSIDES/DOCUSATE SODIUM TAB PO SCH ×2 (08:23→20:26)
[2018-01-11] MEDS: PREGABALIN 50 MG CAP PO SCH ×3 (08:24→22:09)
[2018-01-11] MEDS: buPROPion SR 150 MG TAB PO SCH (08:24)
--- NOTE | 2018-01-11 13:55 | HOSPPROG ---
Hospitalist Progress Note Assessment/Plan: 62-year-old female presents with L side chest pain 2/2 suspected aspiration PNA c/b suspected type II NSTEMI, all of which likely occurred s/p unwitnessed fall and prolonged down time (likely from oversedation from opiates). She also sustained L radial/ulnar fxr, which will require surgical intervention when safe from a medical standpoint. Currently allowing PNA to improve, planning on stress test on Thursday, and then likely surgery w/ Dr. Davidson. Plan: 1. Suspected aspiration Pneumonia. Present on admission, suspect aspiration with approximately 48 hr of down time, as well as opiate use and mechanical fall with resultant encephalopathy -patient reports hives to amoxicillin, switched from invanz to CTX/ metronidazole on 01/06/2018 - D# 7 of Abx, will continue for now given new CXR finding below - CXR performed overnight showed large L sided parapneumonic effusion - Will order CT today to further evaluate effusion - IR consulted for thoracentesis, will perform tomorrow AM due to Lovenox administration this AM - WBC increased to 17.1 this AM from 13.6 yesterday, continue to monitor 2. NSTEMI. Suspect type 2 in the setting of likely underlying multivessel disease with extensive family history of premature coronary disease and severe illness on presentation -cont ASA -LDL 63, no indication for statin -S/p MPS on 01/08 which was a technically limited study which did not reveal any convincing evidence of myocardial ischemia - Consulted cardiology on 01/09, they recommend patient follow up with general cardiology as outpatient - Episode of chest pain overnight, Troponins negative, will continue to monitor , repeat TTE pending 3. Acute on chronic metabolic encephalopathy. Evidenced by global brain dysfunction characterized as disorientation, confusion, poor attentiveness, beyond her chronic mild cognitive impairment, per her daughter, most likely secondary to the metabolic effects of infection, has improved -head CT without any intracranial hemorrhage -reviewed outside records (DC summary by Dr. Oliva Ro from 2012) indicate that patient has baseline cog impairment, and it was recommended she have 24/7 care on DC at that time, suspect her DC will be similar this time -PT, OT, cognitive Assessment 4. Chronic pain with continuous opiate dependency. Continue her home dosage of methadone, consider spacing her dosing to twice daily depending on impact on mental status, continue Oxy IR at her baseline to avoid withdrawal 5. Hypothyroidism. Chronic, TSH stable 6. Radial fracture. Wrist x-ray demonstrating a comminuted, displaced distal radial fracture as well as minimally displaced ulnar fracture -Seen Dr. Davidson, who recommends surgical repair, delayed due to infection and cardiac concerns - Patient now s/p 5 days of IV abx and cleared from a cardiac standpoint - S/p OR on 01/10 7. Acute rhabdomyolysis. Resolved Diet. Regular Prophylaxis. High risk patient Lovenox 40 Code. Full per patient, her daughter is MD MARCANO Disposition. Anticipated discharge uncertain this time, likely to require SNF after Subjective: Patient had episode of chest pain last night, which has improved this AM Objective: Vital Signs Temp Pulse Resp BP Pulse Ox 36.8 C 78 17 103/58 L 94 01/11/18 11:49 01/11/18 11:49 01/11/18 11:49 01/11/18 11:49 01/11/18 11:49 Microbiology 01/05/18 13:11 Blood Culture - Final Blood Laboratory Results 01/11/18 04:25 01/11/18 04:25 01/10/18 01/11/18 01/12/18 05:59 05:59 05:59 Intake Total 1400 300 Output Total 705 Balance 695 300 PT 14.0 SEC (12.0-15.0) 01/05/18 09:45 INR 1.06 (0.83-1.16) 01/05/18 09:45 - Physical Exam Constitutional: no apparent distress, chronically ill appearing Eyes: PERRL Ears, Nose, Mouth, Throat: moist mucous membranes Cardiovascular: regular rate and rhythym Respiratory: no respiratory distress, reduced air movement Gastrointestinal: soft, non-tender abdomen Skin: normal color Musculoskeletal: pain with ROM Neurologic: AAOx3 Psychiatric: interacting appropriately ICD10 Worksheet Patient Problems: Problems Problem Status Onset Aspiration pneumonia Acute Dehydration Acute Elevated troponin Acute Left wrist fracture Acute Leukocytosis Acute Renal insufficiency Acute
--- NOTE | 2018-01-11 14:11 | ECHO ---
[email or web address] [place] [id number] Main: [phone] Fax: Transthoracic Echocardiogram Name: MALINDA MARTIN MR#: [id number] Study Date: 01/11/2018 Study Time: 10:03 AM Date of : 1955 Age: 62 year(s) Height: 165.1 cm (65 in.) Weight: 81.65 kg (180 lb.) BSA: 1.89 m2 Gender: Female Examination: Limited Echo Indication: Chest pain/eval for pericardial effusion, previous echo 01/05/18 Image Quality: Contrast: Requested by: Nedra Davies BP: 99 mmHg/56 mmHg Heart Rate: Rhythm: Indication: Chest pain/eval for pericardial effusion, previous echo 01/05/18 Procedure Staff Computer Information Systems Instructor: Shanae Rahman RDCS Reading Physician: Ángel Junior MD Requesting Provider: Conclusions: Normal global systolic LV function. The ejection fraction is estimated to be 70-75 %. No regional wall motion abnormality. Normal RV function. The left atrium is normal in size. The right atrium is normal in size. No echocardiographic evidence of hemodynamic compromise. Trivial anterior pericardial effusion. . Compared to January 05 2018 no significant change. Measurements: Chambers Valvular Assessment AV/MV Valvular Assessment TV/PV Normal Normal Normal Name Value Range Name Value Range Name Value Range EF Range: 70-75 % TR Vmax: 2.44 mm/s ( - ) TR PGmax: 24 mmHg ( - ) syst. PAP: 29 mmHg ( - ) Continued Measurements: Valvular Assessment TV/PV Name Value CVP (est.): 5 mmHg Patient: MALINDA MARTIN Study Date: 01/11/2018 Page 1 of 2 10:03 AM Findings: Left Ventricle: Normal global systolic LV function. The ejection fraction is estimated to be 70-75 %. No regional wall motion abnormality. Right Ventricle: Normal RV function. Left Atrium: The left atrium is normal in size. Right Atrium: The right atrium is normal in size. Tricuspid Valve: Mild tricuspid regurgitation is present. Pericardium: No echocardiographic evidence of hemodynamic compromise. Trivial anterior pericardial effusion. . (No Signature Object) Patient: MALINDA MARTIN Study Date: 01/11/2018 Page 2 of 2 10:03 AM [id number]
--- NOTE | 2018-01-11 15:04 | ASMTCMCOM ---
CM Note CM Note Notes: Spoke with pt's daughter Toya today [phone]. Pt will be discharging to a SNF when medically cleared. Toya would like either [facility] or [facility]. CM will continue to follow. Date Signed: 01/11/2018 02:39 PM Electronically Signed By:GENIE Brooks
[2018-01-11] MEDS ORDERED: MAG HYDROX/AL HYDROX/SIMETH 30 ML UDCUP PO PRN (15:35)
[2018-01-11] MEDS ORDERED: IOPAMIDOL (ISOVUE-300) 100 ML BTL ONE (16:08)
[2018-01-11] MEDS ORDERED: POTASSIUM CL 10 MEQ TAB PO ONE (20:00)
[2018-01-11] MEDS: ATORVASTATIN CALCIUM 10 MG TAB PO SCH (20:26)
[2018-01-12] MEDS ORDERED: oxyCODONE IR 15 MG TAB PO ONE (00:57)
[2018-01-12 05:36] LABS: PLATELET COUNT 469 10^3/uL (150-400)
[2018-01-12] MEDS: LEVOTHYROXINE 150 MCG TAB PO SCH (06:01)
[2018-01-12] MEDS: ACETAMINOPHEN 500 MG TAB PO SCH ×3 (06:01→22:33)
[2018-01-12] MEDS: oxyCODONE IR 5 MG TAB PO PRN ×5 (06:03→22:34)
[2018-01-12] MEDS: PREGABALIN 50 MG CAP PO SCH ×3 (07:38→22:34)
[2018-01-12] MEDS: ASPIRIN EC 325 MG TAB PO SCH (07:38)
[2018-01-12] MEDS: METHADONE HCL 10 MG TAB PO SCH ×3 (07:39→22:33)
[2018-01-12] MEDS: SENNOSIDES/DOCUSATE SODIUM TAB PO SCH ×2 (07:40→22:33)
[2018-01-12] MEDS: FAMOTIDINE 20 MG TAB PO SCH ×2 (07:40→22:33)
[2018-01-12] MEDS: SERTRALINE HCL 100 MG TAB PO SCH (07:41)
[2018-01-12] MEDS: buPROPion SR 150 MG TAB PO SCH (07:42)
[2018-01-12] MEDS ORDERED: NS 1,000 ML IV SCH (09:00)
[2018-01-12 10:42] LABS: CREATINE KINASE 44 IU/L (0-156)
--- NOTE | 2018-01-12 11:16 | HOSPPROG ---
Hospitalist Progress Note Assessment/Plan: 62-year-old female presents with L side chest pain 2/2 suspected aspiration PNA c/b suspected type II NSTEMI, all of which likely occurred s/p unwitnessed fall and prolonged down time (likely from oversedation from opiates). She also sustained L radial/ulnar fxr, which will require surgical intervention when safe from a medical standpoint. Currently allowing PNA to improve, planning on stress test on Thursday, and then likely surgery w/ Dr. Davidson. Plan: 1. Suspected aspiration Pneumonia. Present on admission, suspect aspiration with approximately 48 hr of down time, as well as opiate use and mechanical fall with resultant encephalopathy -patient reports hives to amoxicillin, switched from invanz to CTX/ metronidazole on 01/06/2018 - D# 7 of Abx, will continue for now given new CXR finding below - CXR performed overnight showed large L sided parapneumonic effusion - Ordered CT chest yesterday which showed interval worsening of L sided PNA, increased L sided pleural effusion, appears to be loculated - IR consulted for thoracentesis, will perform today, fluid analysis ordered - WBC increased to 17.1 yesterday, down to 13.2 today, continue to monitor - Speech consul ordered this AM to evaluate for aspiration given CT findings 2. NSTEMI. Suspect type 2 in the setting of likely underlying multivessel disease with extensive family history of premature coronary disease and severe illness on presentation -cont ASA - LDL 63, no indication for statin - S/p MPS on 01/08 which was a technically limited study which did not reveal any convincing evidence of myocardial ischemia - Consulted cardiology on 01/09, they recommend patient follow up with general cardiology as outpatient - Episode of chest pain overnight, again this AM, troponins remain negative, will continue to monitor, repeat TTE did not show any significant changes 3. Acute on chronic metabolic encephalopathy. Evidenced by global brain dysfunction characterized as disorientation, confusion, poor attentiveness, beyond her chronic mild cognitive impairment, per her daughter, most likely secondary to the metabolic effects of infection, has improved -head CT without any intracranial hemorrhage -reviewed outside records (DC summary by Dr. Oliva Ro from 2012) indicate that patient has baseline cog impairment, and it was recommended she have 24/7 care on DC at that time, suspect her DC will be similar this time -PT, OT, cognitive Assessment 4. Chronic pain with continuous opiate dependency. Continue her home dosage of methadone, consider spacing her dosing to twice daily depending on impact on mental status, continue Oxy IR at her baseline to avoid withdrawal 5. Hypothyroidism. Chronic, TSH stable 6. Radial fracture. Wrist x-ray demonstrating a comminuted, displaced distal radial fracture as well as minimally displaced ulnar fracture -Seen Dr. Davidson, who recommends surgical repair, delayed due to infection and cardiac concerns - S/p OR on 01/10 7. Acute rhabdomyolysis. Resolved Diet. Regular Prophylaxis. High risk patient Lovenox 40 Code. Full per patient, her daughter is MD MARCANO Disposition. Anticipated discharge uncertain this time, likely to require SNF after Subjective: Patient reports R sided chest paint this morning Objective: Vital Signs Temp Pulse Resp BP Pulse Ox 36.6 C 75 18 115/60 94 01/12/18 09:53 01/12/18 09:53 01/12/18 09:53 01/12/18 09:53 01/12/18 09:53 Microbiology 01/05/18 13:11 Blood Culture - Final Blood Laboratory Results 01/12/18 04:40 01/12/18 04:40 01/11/18 01/12/18 01/13/18 05:59 05:59 05:59 Intake Total 1400 2100 Output Total 705 Balance 695 2100 PT 14.0 SEC (12.0-15.0) 01/05/18 09:45 INR 1.06 (0.83-1.16) 01/05/18 09:45 - Physical Exam Constitutional: chronically ill appearing Eyes: PERRL Ears, Nose, Mouth, Throat: moist mucous membranes Cardiovascular: regular rate and rhythym Respiratory: no respiratory distress, reduced air movement, inspiratory crackles Gastrointestinal: soft, non-tender abdomen Genitourinary: No espino in urethra Skin: normal color Musculoskeletal: pain with ROM Neurologic: AAOx3 Psychiatric: interacting appropriately ICD10 Worksheet Patient Problems: Problems Problem Status Onset Aspiration pneumonia Acute Dehydration Acute Elevated troponin Acute Left wrist fracture Acute Leukocytosis Acute Renal insufficiency Acute
--- NOTE | 2018-01-12 12:25 | CPEKG ---
Test Reason : OPEN Blood Pressure : / mmHG Vent. Rate : 083 BPM Atrial Rate : 084 BPM P-R Int : 161 ms QRS Dur : 096 ms QT Int : 426 ms P-R-T Axes : 067 -12 -16 degrees QTc Int : 501 ms Sinus rhythm Probable left atrial enlargement Inferior infarct, age indeterminate Prolonged QT interval T wave inversions are new in comparison to prior ECG Confirmed by Neymar Son ([id number]) on 01/12/2018 12:24:39 PM Referred By: Confirmed By:Neymar Son
--- NOTE | 2018-01-12 12:25 | CPEKG ---
Test Reason : OPEN Blood Pressure : / mmHG Vent. Rate : 076 BPM Atrial Rate : 076 BPM P-R Int : 167 ms QRS Dur : 096 ms QT Int : 441 ms P-R-T Axes : 066 -11 -12 degrees QTc Int : 496 ms Sinus rhythm Atrial premature complex Inferior infarct, old Lateral leads are also involved Confirmed by Neymar Son ([id number]) on 01/12/2018 12:25:09 PM Referred By: Confirmed By:Neymar Son
--- NOTE | 2018-01-12 12:29 | CPEKG ---
Test Reason : OPEN Blood Pressure : / mmHG Vent. Rate : 070 BPM Atrial Rate : 070 BPM P-R Int : 173 ms QRS Dur : 098 ms QT Int : 466 ms P-R-T Axes : 041 -19 -16 degrees QTc Int : 503 ms Sinus rhythm Abnormal R-wave progression, early transition Inferior infarct, age indeterminate Prolonged QT interval Confirmed by Neymar Son ([id number]) on 01/12/2018 12:29:10 PM Referred By: Confirmed By:Neymar Son
[2018-01-12] MEDS ORDERED: LIDOCAINE 1% 300 MG/30 ML SDV ONE (14:12)
--- NOTE | 2018-01-12 14:35 | ASMTCMCOM ---
CM Note CM Note Notes: Pt chooses [facility] SNF, they have [employer] insurance auth. D/c plan of care: [facility] when medically stable. Date Signed: 01/12/2018 02:34 PM Electronically Signed By:GENIE Middleton
--- NOTE | 2018-01-12 17:55 | SOAPPROG ---
SOAP Progress Note Assessment/Plan: Assessment/Plan: 62 Y F c PNA, empyema vs loculated effusion, ME, fall c fracture. Thoracentesis unsuccessful. Plan for VATS c drainage, washout, decortication, possible thoracotomy once cleared by cardiology. Seen c Dr. Zambrano and discussed with medicine and cards. 01/12/18 17:54 Objective: Vital Signs Temp Pulse Resp BP Pulse Ox 36.7 C 70 17 98/60 L 99 01/12/18 16:00 01/12/18 16:00 01/12/18 16:00 01/12/18 16:00 01/12/18 16:00 Laboratory Results 01/12/18 04:40 01/12/18 04:40 01/11/18 01/12/18 01/13/18 05:59 05:59 05:59 Intake Total 1400 2100 450 Output Total 705 Balance 695 2100 450 PT 14.0 SEC (12.0-15.0) 01/05/18 09:45 INR 1.06 (0.83-1.16) 01/05/18 09:45 ICD10 Worksheet Patient Problems: Problems Problem Status Onset Aspiration pneumonia Acute Dehydration Acute Elevated troponin Acute Left wrist fracture Acute Leukocytosis Acute Renal insufficiency Acute
--- NOTE | 2018-01-12 19:38 | GCON ---
PULMONARY CRITICAL CARE CONSULT DATE OF CONSULTATION: 01/12/2018 HISTORY OF PRESENT ILLNESS: This patient is a 62-year-old female who was admitted on 01/05/2018, aft er she fell out of bed on January 02. At that time, she was uncertain why she fell out of bed, alt haroon she does have chronic back pain and narcotic dependence. She said there had been no changes in her dosages. She fell on her left side, including a left wrist fracture, but was reluctant to come to the hospital at first until her pain became intolerable. When she was admitted, she had a small e ffusion on chest x-ray. A CT scan confirmed that, but showed no evidence of rib fracture at that arnol e. A splint was placed. She also had a white count of 25,000 at that time and a minor troponin leak . She was thought to have aspiration pneumonia and was treated initially with Unasyn with serial tro ponins, eventual nuclear stress testing and cardiology consult. Cardiology did not believe that she actually had an infarct at that time and her white blood cell count did respond to the antibiotics wh ich were changed to Invanz, and eventually landed on ceftriaxone and Flagyl. She eventually underwen t an open reduction/internal fixation of her wrist on 01/10, and did not have any immediate complicat ions. However, on the , her white count increased, her effusion also increased substantially on t hat date and a CT scan showed substantial increase in the pleural effusion as well as significant loc ulations. Her white count came down today, though she went for a thoracentesis in Interventional Rad iology and they were unable to get any fluid to come out during the tap. She feels well and denies fever, chills or sweats this time. She still has a pleuritic pain on that side and remains on oxygen as she was since admission. REVIEW OF SYSTEMS: Otherwise negative. PAST MEDICAL HISTORY: Includes: 1. Chronic pain as described above. 2. Depression. 3. Reflux disease. 4. Hypothyroidism. 5. Narcotic dependency. 6. Mild cognitive impairment. 7. Remote traumatic brain injury. 8. One episode of opiate overdose in the past. PAST SURGICAL HISTORY: Includes spine surgery and a hysterectomy. SOCIAL HISTORY: She is a current smoker. No significant alcohol. Does have a home health aide that sees her on occasion. FAMILY HISTORY: Includes coronary disease and lung cancer. CURRENT MEDICATIONS: Include Tylenol, Maalox, aspirin, Lipitor, Dulcolax, Wellbutrin, Tums, ceftriax one, Lovenox Pepcid, Synthroid, milk of magnesia, methadone, Reglan, Flagyl, Sang-Alfred, oxycodone, Lyri ca, MiraLAX, Phenergan, Senokot, Zoloft, Carafate and Imitrex for a history of migraines. PHYSICAL EXAM: VITAL SIGNS: She has been afebrile since admission. Blood pressure 115/60, heart ra te 75, normal sinus rhythm, respirations 18, oxygen saturation 94% on 3 L. GENERAL: She was morbidl y obese, but awake and alert, in no apparent distress, very pleasant and oriented x3. HEENT: Pupils equally round and reactive to light, non-icteric and non-injected. Mucous membranes are moist witho ut erythema or exudate. NECK: Supple without adenopathy or jugular vein distention. LUNGS: Breath sounds were diminished on the left side without wheezing or rubs that I could detect. The right joaquin e was clear to auscultation, also without wheezing. HEART: A regular rate and rhythm without murmur s, rubs or gallops. ABDOMEN: Soft, nontender and nondistended without hepatosplenomegaly. EXTREMIT IES: Show no clubbing, cyanosis or edema. SKIN: Warm and dry without rash. NEUROLOGIC: Nonfocal including cranial nerves and deep tendon reflexes. On her left wrist, she had an extensive dressing from where her surgery was. I did not remove this to see ecchymoses that was reported on her wrist a t that time. OBJECTIVE DATA: Includes the imaging as described above. Her white count is 13.2 today (that was 17 yesterday), hematocrit 27, platelets of 469. Basic metabo lic panel was unremarkable, except for her bicarb which is 32, although that was 31 on admission. Tr oponins were 1.2 on arrival and are undetectable at this point. ASSESSMENT/PLAN: What I believe to be a complicated parapneumonic effusion, less likely empyema, but her white count did reduce from yesterday to today. The increasing pleural effusion is bothersome a nd I think needs drainage. It is unfortunate Interventional Radiology was unable to get a sample of this, but I think that a video-assisted thoracoscopic surgery would probably be in her best interest to clear out the space. The loculations seen on the CT scan as well as the dry tap raise my suspicio n substantially that it is more complicated and requires drainage as opposed to antibiotics alone. I think hemothorax is unlikely in this case because she was several days before she presented to the ospital without significant effusion at that time. Underlying malignancy, of course, is always in th e differential diagnosis, but her symptomatology is highly unsuggestive of that process. I communica ana this with Dr. Roman and we will hopefully get Surgery involved for additional opinions about thi s approach. The patient was amenable to this idea as well. /[id number]/MODL
[2018-01-12] MEDS: ATORVASTATIN CALCIUM 10 MG TAB PO SCH (22:33)
[2018-01-13] MEDS: oxyCODONE IR 5 MG TAB PO PRN ×3 (06:02→19:09)
[2018-01-13] MEDS: ACETAMINOPHEN 500 MG TAB PO SCH ×3 (06:02→21:15)
[2018-01-13] MEDS: LEVOTHYROXINE 150 MCG TAB PO SCH (06:02)
[2018-01-13 06:16] LABS: PLATELET COUNT 570 10^3/uL (150-400)
[2018-01-13] MEDS: SERTRALINE HCL 100 MG TAB PO SCH (08:45)
[2018-01-13] MEDS: buPROPion SR 150 MG TAB PO SCH (08:45)
[2018-01-13] MEDS: METHADONE HCL 10 MG TAB PO SCH ×3 (08:45→21:16)
[2018-01-13] MEDS: PREGABALIN 50 MG CAP PO SCH ×3 (08:45→21:15)
[2018-01-13] MEDS: ASPIRIN EC 325 MG TAB PO SCH (08:45)
[2018-01-13] MEDS: FAMOTIDINE 20 MG TAB PO SCH ×2 (08:45→21:15)
[2018-01-13] MEDS: SENNOSIDES/DOCUSATE SODIUM TAB PO SCH ×2 (08:46→23:54)
--- NOTE | 2018-01-13 08:52 | SOAPPROG ---
SOAP Progress Note Assessment/Plan: Assessment/Plan: 62 Y F c PNA, empyema vs loculated effusion, MT, fall c fracture. Discussed with cardiology last evening. Plan for VATS c drainage, washout, decortication, possible thoracotomy once cleared by cardiology. Consent in chart. Continue abx. Hold chemical VTE ppx. NPO p MN in case of surgery tomorrow. Questions answered, risks discussed last pm. S: no SOB. no CP. denies fevers/chills. no questions. agreeable to surgery. O: gen: sleeping but arousable. nad. pulm: decreased BS L lateral cor: rrr abd: soft, nt 01/13/18 08:49 Objective: Vital Signs Temp Pulse Resp BP Pulse Ox 36.8 C 66 12 111/60 96 01/13/18 07:39 01/13/18 07:39 01/13/18 07:39 01/13/18 07:39 01/13/18 07:39 Laboratory Results 01/13/18 04:38 01/13/18 04:38 01/12/18 01/13/18 01/14/18 05:59 05:59 05:59 Intake Total 2100 690 Balance 2100 690 PT 14.0 SEC (12.0-15.0) 01/05/18 09:45 INR 1.06 (0.83-1.16) 01/05/18 09:45 ICD10 Worksheet Patient Problems: Problems Problem Status Onset Aspiration pneumonia Acute Dehydration Acute Elevated troponin Acute Left wrist fracture Acute Leukocytosis Acute Renal insufficiency Acute
--- NOTE | 2018-01-13 11:46 | HOSPPROG ---
Hospitalist Progress Note Assessment/Plan: 62-year-old female presents with L side chest pain 2/2 suspected aspiration PNA c/b suspected type II NSTEMI, all of which likely occurred s/p unwitnessed fall and prolonged down time (likely from oversedation from opiates). She also sustained L radial/ulnar fxr, which will require surgical intervention when safe from a medical standpoint. Currently allowing PNA to improve, planning on stress test on Thursday, and then likely surgery w/ Dr. Davidson. Plan: 1. Suspected aspiration Pneumonia. Present on admission, suspect aspiration with approximately 48 hr of down time, as well as opiate use and mechanical fall with resultant encephalopathy -patient reports hives to amoxicillin, switched from invanz to CTX/ metronidazole on 01/06/2018 - D#8 of Abx, will continue for now given new CXR finding below, discussed with ID, they recommend continuing current abx regimen - WBC improved to 12.7 this AM, continue to monitor - Speech consulted to evaluate for aspiration given CT findings 2. Parapneumonic Effusion - Seen on CXR, CT Chest - IR consulted for thoracentesis, was unable to obtain fluid yesterday likely 2/ 2 to loculation - Consulted Pulmonology, Dr. Garcia recommended surgical evaluation for VATS - Discussed with Dr. Zambrano who recommends VATS, required cardiology clearance prior to procedure, Dr. Lu to see patient today 2. NSTEMI. Suspect type 2 in the setting of likely underlying multivessel disease with extensive family history of premature coronary disease and severe illness on presentation -cont ASA - LDL 63, no indication for statin - S/p MPS on 01/08 which was a technically limited study which did not reveal any convincing evidence of myocardial ischemia - Consulted cardiology on 01/09, they recommend patient follow up with general cardiology as outpatient - Episode of chest pain overnight yesterday and yesterday during the day, troponins remain negative, will continue to monitor, repeat TTE did not show any significant changes - Cardiology to clear patient today as above 3. Acute on chronic metabolic encephalopathy. Evidenced by global brain dysfunction characterized as disorientation, confusion, poor attentiveness, beyond her chronic mild cognitive impairment, per her daughter, most likely secondary to the metabolic effects of infection, has improved -head CT without any intracranial hemorrhage -reviewed outside records (DC summary by Dr. Oliva Ro from 2012) indicate that patient has baseline cog impairment, and it was recommended she have / care on DC at that time, suspect her DC will be similar this time -PT, OT, cognitive Assessment 4. Chronic pain with continuous opiate dependency. Continue her home dosage of methadone, consider spacing her dosing to twice daily depending on impact on mental status, continue Oxy IR at her baseline to avoid withdrawal 5. Hypothyroidism. Chronic, TSH stable 6. Radial fracture. Wrist x-ray demonstrating a comminuted, displaced distal radial fracture as well as minimally displaced ulnar fracture -Seen Dr. Davidson, who recommends surgical repair, delayed due to infection and cardiac concerns - S/p OR on 01/10 7. Acute rhabdomyolysis. Resolved Diet. Regular Prophylaxis. High risk patient Lovenox 40 Code. Full per patient, her daughter is MD MARCANO Disposition. Anticipated discharge uncertain this time, likely to require SNF after Subjective: Patient reports some improvement in chest pain this morning Objective: Vital Signs Temp Pulse Resp BP Pulse Ox 36.8 C 66 12 111/60 96 01/13/18 07:39 01/13/18 07:39 01/13/18 07:39 01/13/18 07:39 01/13/18 07:39 Laboratory Results 01/13/18 04:38 01/13/18 04:38 01/12/18 01/13/18 01/14/18 05:59 05:59 05:59 Intake Total 2100 690 Balance 2100 690 PT 14.0 SEC (12.0-15.0) 01/05/18 09:45 INR 1.06 (0.83-1.16) 01/05/18 09:45 - Physical Exam Constitutional: chronically ill appearing Eyes: PERRL Ears, Nose, Mouth, Throat: moist mucous membranes Cardiovascular: regular rate and rhythym Respiratory: no respiratory distress, reduced air movement Gastrointestinal: soft, non-tender abdomen Genitourinary: no bladder tenderness Skin: warm Musculoskeletal: pain with ROM Neurologic: AAOx3 Psychiatric: interacting appropriately ICD10 Worksheet Patient Problems: Problems Problem Status Onset Aspiration pneumonia Acute Dehydration Acute Elevated troponin Acute Left wrist fracture Acute Leukocytosis Acute Renal insufficiency Acute
--- NOTE | 2018-01-13 13:06 | PDINTPN ---
[employer] Progress Note Assessment/Plan: 62 F admitted 01/05 after she fell out of bed 01/02. She resisted admission at first but eventually came 2/2 increasing pleuritic chest pain. She had a small left pleural effusion but a left wrist fracture and elevated troponins. Her wrist was splinted and eventually required ORIF. Her wbc on admission was 25 and she was treated for presumed aspiration pneumonia with subsequent decrease in her wbc and fever. However, her wbc later increased as well as her oxygen requirement prompting re-examination of her chest CT which now showed a moderate but heavily loculated pleural effusion. IR attempted thoracentesis but was unable to extract any fluid for analysis. * Pleural effusion- I suspect this is a complicated parapneumonic effusion that will require drainage for resolution. True empyema is also possible, but hemothorax seems unlikely since it was minimal 3 days after her initial injury. The evidence favors lack of resolution without intervention, and VATS would be the next logical step after her failed thoracentesis. Her wbc has been decreasing over the last 24 hours. Subjective: no events. Still with pleuritic chest pain Objective: Vital Signs Temp Pulse Resp BP Pulse Ox 36.8 C 66 12 111/60 96 01/13/18 07:39 01/13/18 07:39 01/13/18 07:39 01/13/18 07:39 01/13/18 07:39 Laboratory Results 01/13/18 04:38 01/13/18 04:38 01/12/18 01/13/18 01/14/18 05:59 05:59 05:59 Intake Total 2100 690 Balance 2100 690 PT 14.0 SEC (12.0-15.0) 01/05/18 09:45 INR 1.06 (0.83-1.16) 01/05/18 09:45 Physical Exam - Physical Exam General Appearance: WD/WN, alert, no apparent distress, obese EENT: PERRL/EOMI, No scleral icterus (R), No scleral icterus (L) Neck: non-tender, supple Respiratory: lungs clear, normal breath sounds, decreased breath sounds (left base), No respiratory distress, No accessory muscle use Cardiac/Chest: regular rate, rhythm, No edema Abdomen: non-tender, soft, No distended Skin: normal color, warm/dry, No cyanosis Lymphatic: no adenopathy Extremities: normal inspection, No pedal edema Neuro/Psych: alert, normal mood/affect, oriented x 3 ICD10 Worksheet Patient Problems: Problems Problem Status Onset Aspiration pneumonia Acute Dehydration Acute Elevated troponin Acute Left wrist fracture Acute Leukocytosis Acute Renal insufficiency Acute
--- NOTE | 2018-01-13 17:48 | SOAPPROG ---
DONALD Progress Note Assessment/Plan: 1. Elevated troponin - Pt presented with a mildly elevated troponin in the setting of rhabdomyolysis. Echocardiogram demonstrated normal left ventricular size and function. Stress testing demonstrated no convincing evidence of ischemia. Troponin has trended down with CPK. Suspect secondary to rhabdomyolysis. 2. Trivial pericardial effusion - Pt was noted to have a trivial pericardial effusion on echocardiogram 01/05/18. Will repeat echocardiogram prior to discharge prior to evaluate for progression. 3. Chest pain - Pt reports sharp respirophasic chest pain. She has a loculated pleural effusion. Suspect secondary to pleuritis. 4. Pre-op evaluation - Pt is anticipating a VATS procedure to treat her pleural effusion. Stress testing demonstrates no convincing evidence of ischemia. Echocardiogram demonstrates normal left ventricular size and systolic function. She did well with her ORIF on 01/10. It is reasonable to proceed with surgery at this time. Subjective: arm feels much better Patient continues to note chest pain. The pain is described as sharp. It is worse with respiration and movement. Patient is anticipating VATS to treat her pleural effusion Please see Dr. Ahumada's consult note. Objective: Vital Signs Temp Pulse Resp BP Pulse Ox 36.6 C 74 20 126/74 H 95 01/13/18 16:00 01/13/18 16:00 01/13/18 16:00 01/13/18 16:00 01/13/18 16:00 Laboratory Results 01/13/18 04:38 01/13/18 04:38 01/12/18 01/13/18 01/14/18 05:59 05:59 05:59 Intake Total 2100 690 Balance 2100 690 PT 14.0 SEC (12.0-15.0) 01/05/18 09:45 INR 1.06 (0.83-1.16) 01/05/18 09:45 Physical Exam - Physical Exam General Appearance: alert, mild distress Neck: other Respiratory: other (decreased breath sounds left base.), No wheezing Cardiac/Chest: regular rate, rhythm Abdomen: non-tender, soft Extremities: other (L arm bandaged from surgery.) Neuro/Psych: alert, oriented x 3 ICD10 Worksheet Patient Problems: Problems Problem Status Onset Aspiration pneumonia Acute Dehydration Acute Elevated troponin Acute Left wrist fracture Acute Leukocytosis Acute Renal insufficiency Acute
[2018-01-13] MEDS: ATORVASTATIN CALCIUM 10 MG TAB PO SCH (21:16)
--- NOTE | 2018-01-13 22:29 | CPEKG ---
Test Reason : OPEN Blood Pressure : / mmHG Vent. Rate : 074 BPM Atrial Rate : 074 BPM P-R Int : 158 ms QRS Dur : 099 ms QT Int : 458 ms P-R-T Axes : 047 -17 -23 degrees QTc Int : 509 ms Sinus rhythm Inferior infarct, old Prolonged QTc interval Confirmed by Vishnu Martinez ([id number]) on 01/13/2018 10:29:27 PM Referred By: Confirmed By:Vishnu Martinez
[2018-01-13] MEDS: CALCIUM CARBONATE 500 MG CHEWABLE TAB PO PRN (23:15)
[2018-01-14] MEDS: ACETAMINOPHEN 500 MG TAB PO SCH ×3 (06:15→21:20)
[2018-01-14] MEDS: LEVOTHYROXINE 150 MCG TAB PO SCH (06:15)
[2018-01-14] MEDS: oxyCODONE IR 5 MG TAB PO PRN ×3 (06:16→21:18)
[2018-01-14] MEDS: buPROPion SR 150 MG TAB PO SCH (08:16)
[2018-01-14] MEDS: SERTRALINE HCL 100 MG TAB PO SCH (08:16)
[2018-01-14] MEDS: FAMOTIDINE 20 MG TAB PO SCH ×2 (08:16→21:19)
[2018-01-14] MEDS: METHADONE HCL 10 MG TAB PO SCH ×3 (08:16→21:18)
[2018-01-14] MEDS: PREGABALIN 50 MG CAP PO SCH ×3 (08:16→21:18)
[2018-01-14] MEDS: SENNOSIDES/DOCUSATE SODIUM TAB PO SCH ×2 (08:18→21:24)
[2018-01-14] MEDS: ERGOCALCIFEROL 50,000 I.UNIT CAP PO SCH (08:20)
[2018-01-14] MEDS ORDERED: LR 1,000 ML IV ONE (10:59)
[2018-01-14] MEDS ORDERED: BUPIVACAINE 0.5% 30 ML SDV ONE (12:00)
[2018-01-14] MEDS ORDERED: LIDOCAINE 2% 2 ML INJ ONE ×2 (12:37)
[2018-01-14] MEDS ORDERED: PROPOFOL 200 MG/20 ML VIAL ONE (12:37)
[2018-01-14] MEDS ORDERED: ROCURONIUM 50 MG/5 ML VIAL ONE (12:37)
[2018-01-14] MEDS ORDERED: ONDANSETRON 4 MG/2 ML VIAL ONE (12:37)
[2018-01-14] MEDS ORDERED: DEXAMETHASONE 4 MG/ML VIAL ONE ×2 (12:37)
[2018-01-14] MEDS ORDERED: MIDAZOLAM 2 MG/2 ML VIAL IVP ONE (12:43)
--- NOTE | 2018-01-14 12:58 | PDHPUP ---
History & Physical Update H&P update statement: This history and physical update is based on an assessment of the patient which was completed after admission or registration (within 24 hours), but prior to the surgery/procedure. H&P update: H&P reviewed & patient examined, no change in patient's condition since H&P completed
[2018-01-14] MEDS ORDERED: fentaNYL 250 MCG/5 ML INJ ONE (13:27)
--- NOTE | 2018-01-14 14:37 | PDANEPAE ---
ANE History of Present Illness Left Empyema ANE Past Medical History - Cardiovascular History Hx Hypertension: No Hx Arrhythmias: No Hx Chest Pain: No Hx Coronary Artery / Peripheral Vascular Disease: Yes Hx CHF / Valvular Disease: No Hx Palpitations: No - Pulmonary History Hx COPD: No Hx Asthma/Reactive Airway Disease: No Hx Recent Upper Respiratory Infection: No Hx Oxygen in Use at Home: Yes O2 in Use at Home (L/minute): 1 Hx Sleep Apnea: Yes Sleep Apnea Screening Result - Last Documented: Positive Pulmonary History Comment: + Empyema on left side - Neurologic History Hx Cerebrovascular Accident: No Hx Seizures: No - Endocrine History Hx Diabetes: No Hypothyroid: Yes Obesity: yes, moderate - Renal History Renal History Comment: recent rhabdomyolysis with this hospitalization - Chronic Pain History Chronic Pain: Yes ANE Review of Systems Review of Systems: - Exercise capacity Exercise capacity: >=4 METS, limited by disability ANE Patient History - Allergies Allergies/Adverse Reactions: amoxicillin Allergy (Verified 01/05/18 11:24) Hives Proton Pump Inhibitors Allergy (Verified 01/10/18 23:09) Diarrhea Sulfa (Sulfonamide Antibiotics) Allergy (Verified 01/10/18 23:09) Itching - Home Medications Home Medications: Levothyroxine [Synthroid 150 mcg (RX)] 150 mcg PO DAILY06 06/18/12 [Last Taken 01/05/18] Methadone HCl [Methadone HCl 10 mg (RX)] 30 mg PO TID 06/18/12 [Last Taken 01/05] Pregabalin [Lyrica 50mg (RX)] 50 mg PO TID 07/16/12 [Last Taken 01/05/18] Atorvastatin Calcium [Lipitor 10 mg (*)] 10 mg PO HS 01/05/18 [Last Taken ] Ergocalciferol [Vitamin D2 (*)] 50,000 unit PO TH 01/05/18 [Last Taken 12/31/17] Promethazine HCl [Phenergan 25mg (*)] 25 mg PO DAILY PRN 01/05/18 [Last Taken Unknown] Ranitidine HCl [Zantac] 300 mg PO BID 01/05/18 [Last Taken 01/04/18 21:00] Rizatriptan Benzoate [Maxalt] 10 - 20 mg PO DAILY PRN 01/05/18 [Last Taken Unknown] SUMAtriptan [Imitrex 50 MG (*)] 50 - 100 mg PO DAILY PRN 01/05/18 [Last Taken Unknown] Sertraline HCl [Zoloft 100mg (*)] 100 mg PO DAILY 01/05/18 [Last Taken 01/05/18] Sucralfate [Carafate 1gm/10ml Oral Liquid (*)] 1 gm PO QID PRN 01/05/18 [Last Taken Unknown] buPROPion SR [Wellbutrin 150mg SR (*)] 150 mg PO DAILY 01/05/18 [Last Taken ] oxyCODONE IR [Oxycodone Ir (*)] 15 mg PO Q6HRS PRN 01/05/18 [Last Taken 01/05/18 ] - NPO status NPO Since - Liquids (Date): 01/14/18 NPO Since - Liquids (Time): 00:00 NPO Since - Solids (Date): 01/14/18 NPO Since - Solids (Time): 00:00 - Smoking Hx Smoking Status: Current every day smoker - Alcohol Use Alcohol Use: None ANE Labs/Vital Signs - Labs Result Diagrams: 01/13/18 04:38 01/13/18 04:38 - Vital Signs Blood Pressure: 139/74 Heart Rate: 83 Respiratory Rate: 23 O2 Sat (%): 93 Height: 165.1 cm Weight: 81.647 kg ANE Physical Exam - Airway Neck exam: FROM Mallampati Score: Class 2 Mouth exam: normal dental/mouth exam, poor dentition - Pulmonary Pulmonary: reduced air movement (left side) - Cardiovascular Cardiovascular: regular rate and rhythym - ASA Status ASA Status: III ANE Anesthesia Plan Anesthesia Plan: general endotracheal anesthesia Lines/Monitors: arterial line Specialized Airway: double lumen tube
[2018-01-14] MEDS ORDERED: SUGAMMADEX SODIUM 200 MG/2 ML VIAL IVP ONE (15:00)
[2018-01-14] MEDS ORDERED: oxyCODONE IR 5 MG TAB PO PRN (15:29)
[2018-01-14] MEDS ORDERED: LABETALOL HCL 5 MG/ML 20 ML MDV IVP PRN (15:29)
[2018-01-14] MEDS ORDERED: LR 500 ML IV PRN (15:29)
[2018-01-14] MEDS ORDERED: PROMETHAZINE HCL 25 MG/ML INJ IVP PRN (15:29)
[2018-01-14] MEDS ORDERED: MEPERIDINE 25 MG/0.5 ML AMP IVP PRN (15:29)
[2018-01-14] MEDS ORDERED: NALOXONE HCL 0.4 MG/ML INJ IVP PRN (15:29)
[2018-01-14] MEDS ORDERED: METOCLOPRAMIDE 10 MG/2 ML VIAL IVP PRN (15:29)
[2018-01-14] MEDS ORDERED: ACETAMINOPHEN 500 MG TAB PO PRN (15:29)
[2018-01-14] MEDS ORDERED: fentaNYL 100 MCG/2 ML INJ ONE (15:31)
--- NOTE | 2018-01-14 15:34 | POSTANESTH ---
Post Anesthetic Evaluation Cardiovascular Status: Normal, Stable Respiratory Status: Normal, Stable Level of Consciousness/Mental Status: Can Participate in Eval Pain Control: Adequate, Prn Tx Ordered Nausea/Vomiting Control: Adequate, Prn Tx Ordered Complications Possibly Related to Anesthesia: None Noted
[2018-01-14] MEDS: fentaNYL 100 MCG/2 ML INJ IVP PRN ×2 (15:37→15:42)
[2018-01-14] MEDS ORDERED: HYDROmorphONE/DILAUDID 2 MG/ML INJ ONE ×2 (15:44→16:43)
[2018-01-14] MEDS: HYDROmorphONE/DILAUDID 2 MG/ML INJ IVP PRN ×7 (15:50→16:55)
--- NOTE | 2018-01-14 16:54 | HOSPPROG ---
Hospitalist Progress Note Assessment/Plan: 62-year-old female presents with L side chest pain 2/2 suspected aspiration PNA c/b suspected type II NSTEMI, all of which likely occurred s/p unwitnessed fall and prolonged down time (likely from oversedation from opiates). She also sustained L radial/ulnar fxr, which will require surgical intervention when safe from a medical standpoint. 1. Suspected aspiration Pneumonia. Present on admission, suspect aspiration with approximately 48 hr of down time, as well as opiate use and mechanical fall with resultant encephalopathy -patient reports hives to amoxicillin, switched from invanz to CTX/ metronidazole on 01/06/2018 - D#9 of Abx, - Speech consulted to evaluate for aspiration given CT findings 2. S/P VATS for Parapneumonic Effusion on 01/14 - IR consulted for thoracentesis, was unable to obtain fluid likely 2/2 to loculation - Consulted Pulmonology, Dr. Garcia recommended surgical evaluation for VATS - Discussed with Dr. Zambrano who performed VATS 2. NSTEMI. Suspect type 2 in the setting of likely underlying multivessel disease with extensive family history of premature coronary disease and severe illness on presentation -cont ASA - LDL 63, no indication for statin - S/p MPS on 01/08 which was a technically limited study which did not reveal any convincing evidence of myocardial ischemia - Consulted cardiology on 01/09, they recommend patient follow up with general cardiology as outpatient 3. Acute on chronic metabolic encephalopathy. Evidenced by global brain dysfunction characterized as disorientation, confusion, poor attentiveness, beyond her chronic mild cognitive impairment, per her daughter, most likely secondary to the metabolic effects of infection, has improved -head CT without any intracranial hemorrhage -reviewed outside records (DC summary by Dr. Oliva Ro from 2012) indicate that patient has baseline cog impairment, and it was recommended she have 24/7 care on DC at that time, suspect her DC will be similar this time -PT, OT, cognitive Assessment 4. Chronic pain with continuous opiate dependency. Continue her home dosage of methadone, consider spacing her dosing to twice daily depending on impact on mental status, continue Oxy IR at her baseline to avoid withdrawal 5. Hypothyroidism. Chronic, TSH stable 6. Radial fracture. Wrist x-ray demonstrating a comminuted, displaced distal radial fracture as well as minimally displaced ulnar fracture -Seen Dr. Davidson, who recommended surgical repair, delayed due to infection and cardiac concerns - S/p OR on 01/10 7. Acute rhabdomyolysis. Resolved Diet. Regular Prophylaxis. High risk patient Lovenox 40 Code. Full per patient, her daughter is MD MARCANO Disposition. Anticipated discharge uncertain this time, likely to require SNF after Plan: She had VATS today. Will check labs in a.m. Monitor/Plan per above Subjective: seen post operatively. still in pain. no cp or sob. Objective: Vital Signs Temp Pulse Resp BP Pulse Ox 36.8 C 83 16 144/82 H 96 01/14/18 16:27 01/14/18 15:33 01/14/18 16:46 01/14/18 16:45 01/14/18 16:46 Laboratory Results 01/13/18 04:38 01/13/18 04:38 01/13/18 01/14/18 01/15/18 05:59 05:59 05:59 Intake Total 690 Balance 690 PT 14.0 SEC (12.0-15.0) 01/05/18 09:45 INR 1.06 (0.83-1.16) 01/05/18 09:45 - Physical Exam Constitutional: chronically ill appearing Eyes: PERRL, EOMI Ears, Nose, Mouth, Throat: moist mucous membranes, hearing normal Cardiovascular: regular rate and rhythym, No edema Respiratory: reduced air movement Gastrointestinal: normoactive bowel sounds, soft, non-tender abdomen Skin: warm Neurologic: No AAOx3 Psychiatric: encephalopathic Lymph, Heme, Immunologic: No petechiae ICD10 Worksheet Patient Problems: Problems Problem Status Onset Aspiration pneumonia Acute Dehydration Acute Elevated troponin Acute Left wrist fracture Acute Leukocytosis Acute Renal insufficiency Acute
[2018-01-14] MEDS: CALCIUM CARBONATE 500 MG CHEWABLE TAB PO PRN ×3 (18:08→21:25)
[2018-01-14] MEDS: HYDROmorphONE/DILAUDID 1 MG/ML INJ IVP PRN ×2 (18:33→19:22)
[2018-01-14] MEDS: ATORVASTATIN CALCIUM 10 MG TAB PO SCH (21:17)
[2018-01-15] MEDS: HYDROmorphONE/DILAUDID 1 MG/ML INJ IVP PRN ×2 (00:21→04:24)
[2018-01-15] MEDS: CALCIUM CARBONATE 500 MG CHEWABLE TAB PO PRN (04:24)
[2018-01-15 05:48] LABS: PLATELET COUNT 710 10^3/uL (150-400)
[2018-01-15] MEDS: oxyCODONE IR 5 MG TAB PO PRN ×3 (06:11→16:25)
[2018-01-15] MEDS: ACETAMINOPHEN 500 MG TAB PO SCH ×3 (06:11→22:07)
[2018-01-15] MEDS: LEVOTHYROXINE 150 MCG TAB PO SCH (06:12)
[2018-01-15] MEDS: SENNOSIDES/DOCUSATE SODIUM TAB PO SCH (09:12)
[2018-01-15] MEDS: METHADONE HCL 10 MG TAB PO SCH ×3 (10:02→22:07)
[2018-01-15] MEDS: PREGABALIN 50 MG CAP PO SCH ×3 (10:03→22:08)
[2018-01-15] MEDS: SERTRALINE HCL 100 MG TAB PO SCH (10:03)
[2018-01-15] MEDS: FAMOTIDINE 20 MG TAB PO SCH ×2 (10:03→22:08)
[2018-01-15] MEDS: buPROPion SR 150 MG TAB PO SCH (10:03)
[2018-01-15] MEDS ORDERED: ASPIRIN 325 MG TAB PO ONE (12:59)
--- NOTE | 2018-01-15 12:59 | SOAPPROG ---
SOAP Progress Note Assessment/Plan: Assessment: 62 y/o F with hx of opiate dependency and dementia, s/p fall, [place], and found to have loculated fluid collection on CT. Now s/p VATS and decortication S: Having pain. Due for next dose of oxycodone. Somewhat difficult to take in deep breaths. Pain the same as before surgery. O: Alert Afebrile RRR No increased WOB, CT with serosanguinous drainage, no air leak, dressing cdi Plan: Continue chest tube management. Likely can switch to water seal. Discussed pain with RN- will give oxycodone. 01/15/18 12:55 Objective: Vital Signs Temp Pulse Resp BP Pulse Ox 36.8 C 85 12 124/79 H 93 01/15/18 12:00 01/15/18 12:00 01/15/18 12:00 01/15/18 12:00 01/15/18 12:00 Microbiology 01/14/18 15:35 Gram Stain - Final Lung - Tissue Laboratory Results 01/15/18 04:26 01/15/18 04:26 01/14/18 01/15/18 01/16/18 05:59 05:59 05:59 Intake Total 1050 Output Total 2100 Balance -1050 PT 14.0 SEC (12.0-15.0) 01/05/18 09:45 INR 1.06 (0.83-1.16) 01/05/18 09:45 ICD10 Worksheet Patient Problems: Problems Problem Status Onset Aspiration pneumonia Acute Dehydration Acute Elevated troponin Acute Left wrist fracture Acute Leukocytosis Acute Renal insufficiency Acute
--- NOTE | 2018-01-15 14:17 | ASMTCMCOM ---
CM Note CM Note Notes: Spoke w/RN, pt not ready for dc. Will dc to [facility] when medically stable, CM sent updated notes. DC Plan: [facility] Date Signed: 01/15/2018 02:13 PM Electronically Signed By:Adela Guido RN
[2018-01-15] MEDS: KETOROLAC 30 MG/1 ML SDV IVP PRN (14:44)
--- NOTE | 2018-01-15 14:51 | PDINTPN ---
Bike As[employer] Progress Note Assessment/Plan: 62 F admitted 01/05 after she fell out of bed 01/02. She resisted admission at first but eventually came 2/2 increasing pleuritic chest pain. She had a small left pleural effusion but a left wrist fracture and elevated troponins. Her wrist was splinted and eventually required ORIF. Her wbc on admission was 25 and she was treated for presumed aspiration pneumonia with subsequent decrease in her wbc and fever. However, her wbc later increased as well as her oxygen requirement prompting re-examination of her chest CT which now showed a moderate but heavily loculated pleural effusion. IR attempted thoracentesis but was unable to extract any fluid for analysis. * Pleural effusion- s/p VATS. Pain control is not surprisingly difficult in a patient with a history of chronic pain and narcotic dependence. Toradol added today. CXR looks OK and chest tube shows no respiratory variation but no leak. Defer to surgery for timing of changing to water seal. Cultures so far negative. 01/15/18 14:49 Subjective: s/p VATS complaining of difficulty with pain management Objective: Vital Signs Temp Pulse Resp BP Pulse Ox 36.8 C 85 12 124/79 H 93 01/15/18 12:00 01/15/18 12:00 01/15/18 12:00 01/15/18 12:00 01/15/18 12:00 Microbiology 01/14/18 15:35 Gram Stain - Final Lung - Tissue 01/14/18 15:35 Mycobacterial Smear (CATHERINE) - Final Lung - Tissue Laboratory Results 01/15/18 04:26 01/15/18 04:26 01/14/18 01/15/18 01/16/18 05:59 05:59 05:59 Intake Total 1050 Output Total 2100 Balance -1050 PT 14.0 SEC (12.0-15.0) 01/05/18 09:45 INR 1.06 (0.83-1.16) 01/05/18 09:45 Physical Exam - Physical Exam General Appearance: alert, no apparent distress, obese EENT: PERRL/EOMI, No scleral icterus (R), No scleral icterus (L) Neck: full range of motion, supple Respiratory: lungs clear, normal breath sounds, decreased breath sounds, No respiratory distress, No accessory muscle use Cardiac/Chest: regular rate, rhythm, No edema Abdomen: non-tender, soft, No distended, No guarding Skin: normal color, warm/dry, No cyanosis Lymphatic: No no adenopathy Extremities: No pedal edema Neuro/Psych: alert, normal mood/affect, oriented x 3 ICD10 Worksheet Patient Problems: Problems Problem Status Onset Aspiration pneumonia Acute Dehydration Acute Elevated troponin Acute Left wrist fracture Acute Leukocytosis Acute Renal insufficiency Acute
--- NOTE | 2018-01-15 15:56 | HOSPPROG ---
Hospitalist Progress Note Assessment/Plan: 62-year-old female presents with L side chest pain 2/2 suspected aspiration PNA c/b suspected type II NSTEMI, all of which likely occurred s/p unwitnessed fall and prolonged down time (likely from oversedation from opiates). 1. Suspected aspiration Pneumonia. Present on admission, suspect aspiration with approximately 48 hr of down time, as well as opiate use and mechanical fall with resultant encephalopathy -patient reports hives to amoxicillin, switched from invanz to CTX/ metronidazole on 01/06/2018 - D#10 of Abx, - Speech consulted to evaluate for aspiration given CT findings 2. S/P VATS for Parapneumonic Effusion on 01/14 - IR consulted for thoracentesis, was unable to obtain fluid likely 2/2 to loculation - Consulted Pulmonology, Dr. Garcia recommended surgical evaluation for VATS - Discussed with Dr. Zambrano who performed VATS on 01/14 - post op care, chest tube care per surgery 2. NSTEMI. Suspect type 2 in the setting of likely underlying multivessel disease with extensive family history of premature coronary disease and severe illness on presentation -cont ASA - LDL 63, no indication for statin - S/p MPS on 01/08 which was a technically limited study which did not reveal any convincing evidence of myocardial ischemia - Consulted cardiology on 01/09, they recommend patient follow up with cardiology as outpatient 3. Acute on chronic metabolic encephalopathy. Evidenced by global brain dysfunction characterized as disorientation, confusion, poor attentiveness, beyond her chronic mild cognitive impairment, per her daughter, most likely secondary to the metabolic effects of infection, has improved -head CT without any intracranial hemorrhage -reviewed outside records (DC summary by Dr. Oliva Ro from 2012) indicate that patient has baseline cog impairment, and it was recommended she have 24/7 care on DC at that time, suspect her DC will be similar this time -PT, OT, cognitive Assessment 4. Chronic pain with continuous opiate dependency. -given acute pain, will provide Oxy more often. Cont all other meds including Methadone and Toradol which was started today 5. Hypothyroidism. Chronic, TSH stable 6. Radial fracture. Wrist x-ray demonstrating a comminuted, displaced distal radial fracture as well as minimally displaced ulnar fracture -Seen Dr. Davidson, who recommended surgical repair, delayed due to infection and cardiac concerns - S/p OR on 01/10 7. Acute rhabdomyolysis. Resolved Diet. Regular Prophylaxis. High risk patient Lovenox 40 Code. Full per patient, her daughter is MD POLouis Disposition. Anticipated discharge uncertain this time, likely to require SNF after Plan: post op care pain mgmt, pain meds modified today holding Lovenox, restart per surgery Subjective: pain when taking a breath. no cp. Objective: Vital Signs Temp Pulse Resp BP Pulse Ox 36.6 C 86 16 131/72 H 94 01/15/18 15:16 01/15/18 15:16 01/15/18 15:16 01/15/18 15:16 01/15/18 15:16 Microbiology 01/14/18 15:35 Gram Stain - Final Lung - Tissue 01/14/18 15:35 Mycobacterial Smear (CATHERINE) - Final Lung - Tissue Laboratory Results 01/15/18 04:26 01/15/18 04:26 01/14/18 01/15/18 01/16/18 05:59 05:59 05:59 Intake Total 1050 Output Total 2100 Balance -1050 PT 14.0 SEC (12.0-15.0) 01/05/18 09:45 INR 1.06 (0.83-1.16) 01/05/18 09:45 - Physical Exam Constitutional: no apparent distress Eyes: PERRL, EOMI Ears, Nose, Mouth, Throat: moist mucous membranes, hearing normal Cardiovascular: regular rate and rhythym, No edema Respiratory: reduced air movement Gastrointestinal: normoactive bowel sounds, soft, non-tender abdomen Skin: warm Neurologic: AAOx3 Psychiatric: interacting appropriately, not anxious, not encephalopathic Lymph, Heme, Immunologic: No petechiae ICD10 Worksheet Patient Problems: Problems Problem Status Onset Aspiration pneumonia Acute Dehydration Acute Elevated troponin Acute Left wrist fracture Acute Leukocytosis Acute Renal insufficiency Acute
--- NOTE | 2018-01-15 17:12 | ECHO ---
[email or web address] [place] [id number] Main: [phone] Fax: Transthoracic Echocardiogram Name: MALINDA MARTIN MR#: [id number] Study Date: 01/15/2018 Study Time: 10:42 AM Date of : 1955 Age: 62 year(s) Height: ( ) Weight: ( ) BSA: Gender: Female Examination: Echo Indication: F/U Known Pericardial Effusion Image Quality: Contrast: Requested by: Neymar Barron BP: 130 mmHg/71 mmHg Heart Rate: Rhythm: Normal sinus rhythm Indication: F/U Known Pericardial Effusion Procedure Staff Senior Sales Director: Sang Cook RDCS Reading Physician: Ángel Junior MD Requesting Provider: Conclusions: Normal global systolic LV function. Trivial pericardial effusion. No echocardiographic evidence of hemodynamic compromise. Compared to Jan 05 2018 no significant change. Measurements: Chambers Valvular Assessment AV/MV Valvular Assessment TV/PV Normal Normal Normal Name Value Range Name Value Range Name Value Range Continued Measurements: Findings: Left Ventricle: Normal global systolic LV function. Pericardium: Trivial pericardial effusion. No echocardiographic evidence of hemodynamic compromise. Exam Comments: This is a limited echo to evaluate for a known small pericardial effusion. . (No Signature Object) Patient: MALINDA MARTIN Study Date: 01/15/2018 Page 1 of 1 10:42 AM [id number]
[2018-01-15] MEDS: ATORVASTATIN CALCIUM 10 MG TAB PO SCH (22:07)
[2018-01-16] MEDS: SENNOSIDES/DOCUSATE SODIUM TAB PO SCH ×3 (01:34→21:20)
[2018-01-16] MEDS: KETOROLAC 30 MG/1 ML SDV IVP PRN ×3 (05:01→20:00)
[2018-01-16] MEDS: LEVOTHYROXINE 150 MCG TAB PO SCH (05:02)
[2018-01-16 06:08] LABS: PLATELET COUNT 593 10^3/uL (150-400)
[2018-01-16] MEDS: ACETAMINOPHEN 500 MG TAB PO SCH ×3 (06:26→21:21)
[2018-01-16] MEDS: oxyCODONE IR 5 MG TAB PO PRN ×3 (08:19→20:01)
[2018-01-16] MEDS: METHADONE HCL 10 MG TAB PO SCH ×3 (08:20→21:20)
[2018-01-16] MEDS: PREGABALIN 50 MG CAP PO SCH ×3 (08:21→21:20)
[2018-01-16] MEDS: FAMOTIDINE 20 MG TAB PO SCH ×2 (08:21→21:20)
[2018-01-16] MEDS: SERTRALINE HCL 100 MG TAB PO SCH (08:21)
[2018-01-16] MEDS: buPROPion SR 150 MG TAB PO SCH (08:23)
--- NOTE | 2018-01-16 08:51 | SOAPPROG ---
SOAP Progress Note Assessment/Plan: Assessment: 62 y/o F with hx of opiate dependency and dementia, s/p fall, [place], and found to have loculated fluid collection on CT. Now s/p VATS and decortication Chest tube to water seal cough deep breath Will watch output - maybe out tomorrow S: Pain better controlled today. Still not with good inspiratory effort O: Alert sitting in chair Afebrile RRR Shallow breaths No increased WOB, CT with serosanguinous drainage, no air leak, dressing cdi Plan: 01/16/18 08:47 Objective: Vital Signs Temp Pulse Resp BP Pulse Ox 36.7 C 75 12 113/62 94 01/16/18 07:58 01/16/18 07:58 01/16/18 07:58 01/16/18 07:58 01/16/18 07:58 Microbiology 01/14/18 15:35 Gram Stain - Final Lung - Tissue 01/14/18 15:35 Mycobacterial Smear (CATHERINE) - Final Lung - Tissue Laboratory Results 01/16/18 05:42 01/15/18 04:26 01/15/18 01/16/18 01/17/18 05:59 05:59 05:59 Intake Total 1050 125 Output Total 2100 1400 Balance -1050 -1275 PT 14.0 SEC (12.0-15.0) 01/05/18 09:45 INR 1.06 (0.83-1.16) 01/05/18 09:45 ICD10 Worksheet Patient Problems: Problems Problem Status Onset Aspiration pneumonia Acute Dehydration Acute Elevated troponin Acute Left wrist fracture Acute Leukocytosis Acute Renal insufficiency Acute
--- NOTE | 2018-01-16 14:33 | HOSPPROG ---
Hospitalist Progress Note Assessment/Plan: 62-year-old female presents with L side chest pain 2/2 suspected aspiration PNA c/b suspected type II NSTEMI, all of which likely occurred s/p unwitnessed fall and prolonged down time (likely from oversedation from opiates). 1. Suspected aspiration Pneumonia. Present on admission, suspect aspiration with approximately 48 hr of down time, as well as opiate use and mechanical fall with resultant encephalopathy -patient reports hives to amoxicillin, switched from invanz to CTX/ metronidazole on 01/06/2018 - D#11 of Abx, - Speech consulted to evaluate for aspiration given CT findings 2. S/P VATS for Parapneumonic Effusion on 01/14 - IR consulted for thoracentesis, was unable to obtain fluid likely 2/2 to loculation - Consulted Pulmonology, Dr. Garcia recommended surgical evaluation for VATS - Discussed with Dr. Zambrano who performed VATS on 01/14 - post op care, chest tube care per surgery 2. NSTEMI. Suspect type 2 in the setting of likely underlying multivessel disease with extensive family history of premature coronary disease and severe illness on presentation -cont ASA - LDL 63, no indication for statin - S/p MPS on 01/08 which was a technically limited study which did not reveal any convincing evidence of myocardial ischemia - Consulted cardiology on 01/09, they recommend patient follow up with cardiology as outpatient 3. Acute on chronic metabolic encephalopathy. Evidenced by global brain dysfunction characterized as disorientation, confusion, poor attentiveness, beyond her chronic mild cognitive impairment, per her daughter, most likely secondary to the metabolic effects of infection, has improved -head CT without any intracranial hemorrhage -reviewed outside records (DC summary by Dr. Oliva Ro from 2012) indicate that patient has baseline cog impairment, and it was recommended she have 24/7 care on DC at that time, suspect her DC will be similar this time -PT, OT, cognitive Assessment 4. Chronic pain with continuous opiate dependency. -given acute pain, will provide Oxy more often. Cont all other meds including Methadone and Toradol which was started today 5. Hypothyroidism. Chronic, TSH stable 6. Radial fracture. Wrist x-ray demonstrating a comminuted, displaced distal radial fracture as well as minimally displaced ulnar fracture -Seen Dr. Davidson, who recommended surgical repair, delayed due to infection and cardiac concerns - S/p OR on 01/10 7. Acute rhabdomyolysis. Resolved Diet. Regular Prophylaxis. High risk patient Lovenox 40 Code. Full per patient, her daughter is MD KRYS Disposition. Anticipated discharge uncertain this time, likely to require SNF after Plan: post op care pain mgmt, pain meds modified today check PC. plan on stopping abx holding Lovenox, restart per surgery Subjective: still with post op pain, although controlled. denies sob. Objective: Vital Signs Temp Pulse Resp BP Pulse Ox 36.8 C 76 14 104/50 L 94 01/16/18 11:59 01/16/18 11:59 01/16/18 11:59 01/16/18 11:59 01/16/18 11:59 Microbiology 01/14/18 15:35 Gram Stain - Final Lung - Tissue 01/14/18 15:35 Mycobacterial Smear (CATHERINE) - Final Lung - Tissue Laboratory Results 01/16/18 05:42 01/15/18 04:26 01/15/18 01/16/18 01/17/18 05:59 05:59 05:59 Intake Total 1050 125 360 Output Total 2100 1400 Balance -1050 -1275 360 PT 14.0 SEC (12.0-15.0) 01/05/18 09:45 INR 1.06 (0.83-1.16) 01/05/18 09:45 - Physical Exam Constitutional: no apparent distress Eyes: PERRL Ears, Nose, Mouth, Throat: moist mucous membranes, hearing normal Cardiovascular: regular rate and rhythym Respiratory: no respiratory distress, reduced air movement Gastrointestinal: normoactive bowel sounds, soft, non-tender abdomen, no palpable masses Skin: warm Neurologic: AAOx3 Psychiatric: interacting appropriately, not anxious, not encephalopathic Lymph, Heme, Immunologic: No petechiae ICD10 Worksheet Patient Problems: Problems Problem Status Onset Aspiration pneumonia Acute Dehydration Acute Elevated troponin Acute Left wrist fracture Acute Leukocytosis Acute Renal insufficiency Acute
--- NOTE | 2018-01-16 16:28 | PDINTPN ---
Service Officer Progress Note Assessment/Plan: 62 F admitted 01/05 after she fell out of bed 01/02. She resisted admission at first but eventually came 2/2 increasing pleuritic chest pain. She had a small left pleural effusion but a left wrist fracture and elevated troponins. Her wrist was splinted and eventually required ORIF. Her wbc on admission was 25 and she was treated for presumed aspiration pneumonia with subsequent decrease in her wbc and fever. However, her wbc later increased as well as her oxygen requirement prompting re-examination of her chest CT which now showed a moderate but heavily loculated pleural effusion. IR attempted thoracentesis but was unable to extract any fluid for analysis. * Pleural effusion- s/p VATS. Pain control is not surprisingly difficult in a patient with a history of chronic pain and narcotic dependence. Toradol added and helps much better. Discussed with Dr. Zambrano- no clear pus and cultures negative. Likely complicated prapneumonic effusion. Reviewed notes from Dr. Mason- placed to water seal with possible dc chest tube in am. Subjective: feels OK. Pain better with toradol Objective: Vital Signs Temp Pulse Resp BP Pulse Ox 36.8 C 77 14 104/50 L 94 01/16/18 16:00 01/16/18 16:00 01/16/18 16:00 01/16/18 16:00 01/16/18 16:00 Microbiology 01/14/18 15:35 Gram Stain - Final Lung - Tissue 01/14/18 15:35 Mycobacterial Smear (CATHERINE) - Final Lung - Tissue Laboratory Results 01/16/18 05:42 01/15/18 04:26 01/15/18 01/16/18 01/17/18 05:59 05:59 05:59 Intake Total 1050 125 360 Output Total 2100 1400 Balance -1050 -1275 360 PT 14.0 SEC (12.0-15.0) 01/05/18 09:45 INR 1.06 (0.83-1.16) 01/05/18 09:45 Physical Exam - Physical Exam General Appearance: alert, no apparent distress, obese EENT: PERRL/EOMI, No scleral icterus (R), No scleral icterus (L) Neck: full range of motion, supple Respiratory: lungs clear, normal breath sounds, decreased breath sounds, No respiratory distress, No accessory muscle use Cardiac/Chest: regular rate, rhythm, No edema Abdomen: non-tender, soft, No distended, No guarding Skin: normal color, warm/dry, No cyanosis Lymphatic: no adenopathy Extremities: No pedal edema Neuro/Psych: alert, normal mood/affect, oriented x 3 ICD10 Worksheet Patient Problems: Problems Problem Status Onset Aspiration pneumonia Acute Dehydration Acute Elevated troponin Acute Left wrist fracture Acute Leukocytosis Acute Renal insufficiency Acute
[2018-01-16] MEDS: ATORVASTATIN CALCIUM 10 MG TAB PO SCH (21:20)
[2018-01-17] MEDS: oxyCODONE IR 5 MG TAB PO PRN (04:34)
[2018-01-17 04:45] LABS: PLATELET COUNT 606 10^3/uL (150-400)
[2018-01-17] MEDS: ACETAMINOPHEN 500 MG TAB PO SCH ×3 (05:14→21:27)
[2018-01-17] MEDS: KETOROLAC 30 MG/1 ML SDV IVP PRN (05:14)
[2018-01-17] MEDS: LEVOTHYROXINE 150 MCG TAB PO SCH (05:14)
[2018-01-17] MEDS: METHADONE HCL 10 MG TAB PO SCH ×3 (09:03→21:27)
[2018-01-17] MEDS: FAMOTIDINE 20 MG TAB PO SCH ×2 (09:03→21:28)
[2018-01-17] MEDS: SERTRALINE HCL 100 MG TAB PO SCH (09:03)
[2018-01-17] MEDS: buPROPion SR 150 MG TAB PO SCH (09:04)
[2018-01-17] MEDS: PREGABALIN 50 MG CAP PO SCH ×3 (09:04→21:27)
[2018-01-17] MEDS: SENNOSIDES/DOCUSATE SODIUM TAB PO SCH ×2 (09:10→21:28)
--- NOTE | 2018-01-17 09:50 | GOP ---
DATE OF OPERATION: 01/14/2018 SURGEON: Deangelo Zambrano MD COMPUTER SYSTEMS ARCHITECT: Maribel Goodrich, nurse practitioner. PREOPERATIVE DIAGNOSIS: Possible left empyema. POSTOPERATIVE DIAGNOSIS: Possible left empyema. PROCEDURE PERFORMED: Video-assisted thoracoscopic surgery drainage of empyema and decortication. FINDINGS: The patient was found to have 1 L of fairly thin serous fluid in the left chest. The diap hragm was riding high. There were fibrinous adhesions, which were freed up, but the lower lobe was a llowed to easily expand after the procedure. DESCRIPTION OF PROCEDURE: The patient was taken to the operating room where she received satisfactor y general endotracheal anesthesia. She was placed in the right lateral decubitus position, prepped a nd draped in usual sterile fashion. A short incision was made in the axillary line in the 6th intercostal space. A trocar was introduced . Thoracoscope was introduced. Adequate visualization was present. Additional trocar was placed in the left chest and a large volume of serous fluid was suctioned out, and some was sent for culture. A third trocar was placed in the left lower lobe was then freed up from fibrinous adhesions. These were quite easy to break down actually, and the lung could easily be re-expanded. The left lower and left upper lobes were freed up completely. Two #28 chest tubes were brought in through the trocar sites. Wounds were infiltrated with 0.5% Hayden bridget and chest tubes were secured to the skin with 2-0 silk sutures. The lung was re-expanded. Ches t tubes were connected to Pleur-evac drainage system. The remaining trocar site was closed with 4-0 Monocryl subcuticular sutures. All wounds were infiltrated with 0.5% Marcaine. She tolerated the pr ocedure well. She was taken to the recovery room in good condition. There were no complications. /[id number]/MODL
--- NOTE | 2018-01-17 11:27 | SOAPPROG ---
SOAP Progress Note Assessment/Plan: Assessment: 62 y/o F with hx of opiate dependency and dementia, s/p fall, [place], and found to have loculated fluid collection on CT. Now s/p VATS and decortication Chest tube removed today S: Pain better controlled today. O: Alert sitting in bed with left arm propped up Afebrile RRR Shallow breaths, able to cough and taker better breaths than yesterday No increased WOB, CTAB Chest tubes pulled and insertion sites covered with vaseline gauze,4x4 and Tegaderm. Plan: Chest x-ray later today to evaluate if pneumo s/p chest tube removal Otherwise, continue current cares. 01/16/18 08:47 01/17/18 11:26 01/17/18 11:27 01/17/18 11:43 Objective: Vital Signs Temp Pulse Resp BP Pulse Ox 36.8 C 71 16 111/59 L 95 01/17/18 07:56 01/17/18 07:56 01/17/18 07:56 01/17/18 07:56 01/17/18 07:56 Microbiology 01/14/18 15:35 Gram Stain - Final Lung - Tissue Laboratory Results 01/17/18 04:25 01/15/18 04:26 01/16/18 01/17/18 01/18/18 05:59 05:59 05:59 Intake Total 125 560 Output Total 1400 40 300 Balance -1275 520 -300 PT 14.0 SEC (12.0-15.0) 01/05/18 09:45 INR 1.06 (0.83-1.16) 01/05/18 09:45 ICD10 Worksheet Patient Problems: Problems Problem Status Onset Aspiration pneumonia Acute Dehydration Acute Elevated troponin Acute Left wrist fracture Acute Leukocytosis Acute Renal insufficiency Acute
--- NOTE | 2018-01-17 13:32 | HOSPPROG ---
Hospitalist Progress Note Assessment/Plan: 62-year-old female presents with L side chest pain 2/2 suspected aspiration PNA c/b suspected type II NSTEMI, all of which likely occurred s/p unwitnessed fall and prolonged down time (likely from oversedation from opiates). 1. Suspected aspiration Pneumonia. Present on admission, suspect aspiration with approximately 48 hr of down time, as well as opiate use and mechanical fall with resultant encephalopathy -patient reports hives to amoxicillin, switched from invanz to CTX/ metronidazole on 01/06/2018 - D#11 of Abx, will stop abx today (01/17). No clear pus and cultures negative. D/w Dr. Garcia - Speech consulted to evaluate for aspiration given CT findings 2. S/P VATS for Parapneumonic Effusion on 01/14 - IR consulted for thoracentesis, was unable to obtain fluid likely 2/2 to loculation - Consulted Pulmonology, Dr. Garcia recommended surgical evaluation for VATS - Discussed with Dr. Zambrano who performed VATS on 01/14 - post op care, chest tube care per surgery -abx stopped today. No clear pus and cultures negative. 2. NSTEMI. Suspect type 2 in the setting of likely underlying multivessel disease with extensive family history of premature coronary disease and severe illness on presentation -cont ASA - LDL 63, no indication for statin - S/p MPS on 01/08 which was a technically limited study which did not reveal any convincing evidence of myocardial ischemia - Consulted cardiology on 01/09, they recommend patient follow up with cardiology as outpatient 3. Acute on chronic metabolic encephalopathy. Evidenced by global brain dysfunction characterized as disorientation, confusion, poor attentiveness, beyond her chronic mild cognitive impairment, per her daughter, most likely secondary to the metabolic effects of infection, has improved -head CT without any intracranial hemorrhage -reviewed outside records (DC summary by Dr. Oliva Ro from 2012) indicate that patient has baseline cog impairment, and it was recommended she have 24/7 care on DC at that time, suspect her DC will be similar this time -PT, OT, cognitive Assessment 4. Chronic pain with continuous opiate dependency. -given acute pain, will provide Oxy more often. Cont all other meds including Methadone and Toradol which was started today 5. Hypothyroidism. Chronic, TSH stable 6. Radial fracture. Wrist x-ray demonstrating a comminuted, displaced distal radial fracture as well as minimally displaced ulnar fracture -Seen Dr. Davidson, who recommended surgical repair, delayed due to infection and cardiac concerns - S/p OR on 01/10 7. Acute rhabdomyolysis. Resolved 8. Anemia, repeat H/H in a.m. Diet. Regular Prophylaxis. Holding Lovenox Code. Full per patient, her daughter is MD MARCANO Disposition. Anticipated discharge uncertain this time, likely to require SNF after Plan: post op care, Chest tube out today stop abx today repeat CBC in a.m., consider transfusion if needed pain mgmt, pain is well controlled. CPM check PC. plan on stopping abx holding Lovenox, restart per surgery. currently on SCD's Subjective: ct out. pain is well controlled. she is resting. no cp. afebrile. Objective: Vital Signs Temp Pulse Resp BP Pulse Ox 36.8 C 72 16 104/57 L 95 01/17/18 12:39 01/17/18 12:39 01/17/18 12:39 01/17/18 12:39 01/17/18 12:39 Microbiology 01/14/18 15:35 Gram Stain - Final Lung - Tissue Laboratory Results 01/17/18 04:25 01/15/18 04:26 01/16/18 01/17/18 01/18/18 05:59 05:59 05:59 Intake Total 125 560 360 Output Total 1400 40 300 Balance -1275 520 60 PT 14.0 SEC (12.0-15.0) 01/05/18 09:45 INR 1.06 (0.83-1.16) 01/05/18 09:45 - Physical Exam Constitutional: no apparent distress Eyes: PERRL Ears, Nose, Mouth, Throat: moist mucous membranes, hearing normal Cardiovascular: regular rate and rhythym Respiratory: no respiratory distress, reduced air movement Gastrointestinal: normoactive bowel sounds, soft, non-tender abdomen Skin: warm Neurologic: AAOx3 Psychiatric: interacting appropriately, not anxious, not encephalopathic Lymph, Heme, Immunologic: No petechiae ICD10 Worksheet Patient Problems: Problems Problem Status Onset Aspiration pneumonia Acute Dehydration Acute Elevated troponin Acute Left wrist fracture Acute Leukocytosis Acute Renal insufficiency Acute
--- NOTE | 2018-01-17 15:42 | PDINTPN ---
Squadron Worker Progress Note Assessment/Plan: 62 F admitted 01/05 after she fell out of bed 01/02. She resisted admission at first but eventually came 2/2 increasing pleuritic chest pain. She had a small left pleural effusion but a left wrist fracture and elevated troponins. Her wrist was splinted and eventually required ORIF. Her wbc on admission was 25 and she was treated for presumed aspiration pneumonia with subsequent decrease in her wbc and fever. However, her wbc later increased as well as her oxygen requirement prompting re-examination of her chest CT which now showed a moderate but heavily loculated pleural effusion. IR attempted thoracentesis but was unable to extract any fluid for analysis, so sent for VATS with mild concern for empyema. * Pleural effusion- s/p VATS. Discussed with Dr. Zambrano- no clear pus and cultures negative. Likely complicated prapneumonic effusion. Pain control is not surprisingly difficult in a patient with a history of chronic pain and narcotic dependence. Toradol added and helps much better. chest tube dc'd. * We'll sign off, but call prn 01/17/18 15:40 Subjective: feels better, CT dc'd Objective: Vital Signs Temp Pulse Resp BP Pulse Ox 36.8 C 72 16 104/57 L 95 01/17/18 12:39 01/17/18 12:39 01/17/18 12:39 01/17/18 12:39 01/17/18 12:39 Microbiology 01/14/18 15:35 Gram Stain - Final Lung - Tissue Laboratory Results 01/17/18 04:25 01/15/18 04:26 01/16/18 01/17/18 01/18/18 05:59 05:59 05:59 Intake Total 125 560 360 Output Total 1400 40 300 Balance -1275 520 60 PT 14.0 SEC (12.0-15.0) 01/05/18 09:45 INR 1.06 (0.83-1.16) 01/05/18 09:45 Physical Exam - Physical Exam General Appearance: WD/WN, alert, obese EENT: PERRL/EOMI, No scleral icterus (R), No scleral icterus (L) Neck: full range of motion, supple Respiratory: lungs clear, normal breath sounds, decreased breath sounds, No respiratory distress, No accessory muscle use Cardiac/Chest: regular rate, rhythm, No edema Abdomen: non-tender, soft, No distended Skin: normal color, warm/dry, No cyanosis Lymphatic: no adenopathy Extremities: normal inspection, No pedal edema Neuro/Psych: alert, normal mood/affect, oriented x 3 ICD10 Worksheet Patient Problems: Problems Problem Status Onset Aspiration pneumonia Acute Dehydration Acute Elevated troponin Acute Left wrist fracture Acute Leukocytosis Acute Renal insufficiency Acute
[2018-01-17] MEDS: ATORVASTATIN CALCIUM 10 MG TAB PO SCH (21:27)
[2018-01-18 05:03] LABS: PLATELET COUNT 633 10^3/uL (150-400)
[2018-01-18] MEDS: ACETAMINOPHEN 500 MG TAB PO SCH ×3 (07:09→21:29)
[2018-01-18] MEDS: LEVOTHYROXINE 150 MCG TAB PO SCH (07:10)
--- NOTE | 2018-01-18 09:17 | HOSPPROG ---
Hospitalist Progress Note Assessment/Plan: 62-year-old female presents with L side chest pain 2/2 suspected aspiration PNA c/b suspected type II NSTEMI, all of which likely occurred s/p unwitnessed fall and prolonged down time (likely from oversedation from opiates). 1. Suspected aspiration Pneumonia. Cxs neg. S/P 10 days of ceftriaxone/ flagyl. Cultures negative. - F/U speech recs 2. S/P VATS for Parapneumonic Effusion on 01/14 - post op care, chest tube out, surg following - repeat cxr in am 2. NSTEMI. Suspect type 2 / strain - LDL 63, no indication for statin - neg stress test 01/08 - outpt cardiology f/u 3. Acute on chronic metabolic encephalopathy. Head CT neg. Outpt records notes baseline cog impairment, and it was recommended she have 24/7 care on DC at that time, suspect her DC will be similar this time -PT, OT, cognitive Assessment 4. Chronic pain with continuous opiate dependency. -given acute pain, will provide Oxy more often. Cont all other meds including Methadone and Toradol 5. Hypothyroidism. Chronic, TSH stable 6. Radial fracture. Wrist x-ray demonstrating a comminuted, displaced distal radial fracture as well as minimally displaced ulnar fracture -Seen Dr. Davidson, who recommended surgical repair, delayed due to infection and cardiac concerns - S/p OR on 01/10 7. Acute rhabdomyolysis. Resolved 8. Anemia, repeat H/H in a.m. 9. Pharyngitis, check RVP Diet. Regular Prophylaxis. Holding Lovenox, resume tomorrow Code. Full per patient, her daughter is MD MARCANO Disposition. Anticipated discharge uncertain this time, likely to require SNF after Subjective: Pt feels ok, c/o sore throat, fatigue. No fevers/chills. Still some SOB, on her baseline O2 at 1.5 LPM. Objective: Vital Signs Temp Pulse Resp BP Pulse Ox 36.8 C 83 18 125/81 H 91 L 01/18/18 07:54 01/18/18 07:54 01/18/18 07:54 01/18/18 07:54 01/18/18 07:54 Microbiology 01/14/18 15:35 Gram Stain - Final Lung - Tissue Laboratory Results 01/18/18 04:18 01/15/18 04:26 01/17/18 01/18/18 01/19/18 05:59 05:59 05:59 Intake Total 560 1160 Output Total 40 300 Balance 520 860 PT 14.0 SEC (12.0-15.0) 01/05/18 09:45 INR 1.06 (0.83-1.16) 01/05/18 09:45 - Physical Exam Constitutional: no apparent distress Eyes: PERRL Ears, Nose, Mouth, Throat: moist mucous membranes Cardiovascular: regular rate and rhythym Respiratory: no respiratory distress, reduced air movement, inspiratory crackles Gastrointestinal: normoactive bowel sounds, soft, non-tender abdomen Skin: warm Musculoskeletal: full muscle strength Neurologic: AAOx3 Psychiatric: interacting appropriately ICD10 Worksheet Patient Problems: Problems Problem Status Onset Aspiration pneumonia Acute Dehydration Acute Elevated troponin Acute Left wrist fracture Acute Leukocytosis Acute Renal insufficiency Acute
[2018-01-18] MEDS: METHADONE HCL 10 MG TAB PO SCH ×3 (09:39→21:29)
[2018-01-18] MEDS: oxyCODONE IR 5 MG TAB PO PRN ×3 (09:41→16:04)
[2018-01-18] MEDS: SERTRALINE HCL 100 MG TAB PO SCH (09:43)
[2018-01-18] MEDS: FAMOTIDINE 20 MG TAB PO SCH ×2 (09:43→21:30)
[2018-01-18] MEDS: buPROPion SR 150 MG TAB PO SCH (09:43)
[2018-01-18] MEDS: PREGABALIN 50 MG CAP PO SCH ×3 (09:43→21:30)
[2018-01-18] MEDS: SENNOSIDES/DOCUSATE SODIUM TAB PO SCH ×2 (10:09→21:32)
--- NOTE | 2018-01-18 11:18 | ASMTCMCOM ---
CM Note CM Note Notes: Pts case discussed w/ JOSEP Leiva. Updates sent to [facility]. Pt is not medically stable to d/c yet. CM to follow. Plan: [facility] Date Signed: 01/18/2018 11:17 AM Electronically Signed By:NATHALIE Ramirez
--- NOTE | 2018-01-18 13:25 | SOAPPROG ---
SOAP Progress Note Assessment/Plan: Assessment: WOUND OK WITH MILD IRRITATION FROM TEGADERM BS EQUAL BUT SOME DULLNESS LEFT BASE CHEST TUBE OUT CXR SLIGHT LEFT EFFUSION AFEBRILE Plan:FU CXR 01/18/18 13:23 Objective: Vital Signs Temp Pulse Resp BP Pulse Ox 36.7 C 78 18 108/57 L 94 01/18/18 12:00 01/18/18 12:00 01/18/18 12:00 01/18/18 12:00 01/18/18 12:00 Microbiology 01/14/18 15:35 Gram Stain - Final Lung - Tissue 01/18/18 10:15 Respiratory Panel (PCR) - Final Nasal, Sinus - Anaerobic Tube/Swab No Organism Detected By Pcr Laboratory Results 01/18/18 04:18 01/15/18 04:26 01/17/18 01/18/18 01/19/18 05:59 05:59 05:59 Intake Total 560 1160 Output Total 40 300 Balance 520 860 PT 14.0 SEC (12.0-15.0) 01/05/18 09:45 INR 1.06 (0.83-1.16) 01/05/18 09:45 ICD10 Worksheet Patient Problems: Problems Problem Status Onset Aspiration pneumonia Acute Dehydration Acute Elevated troponin Acute Left wrist fracture Acute Leukocytosis Acute Renal insufficiency Acute
--- NOTE | 2018-01-18 15:29 | WOCRNPDOC ---
WOCRN Advanced Assessment Note - Skin Integrity Problem, Advanced Assess Left Sacrum Pressure Injury Dressing Type: Mepilex Border Dressing Description: Clean/Dry, Intact Closure Description: Not Approximated Exudate Amount: Minimal Exudate Color: Reddish/Yellow Exudate Characteristic(s): Serosanguinous Integumentary Issue Intervention: Dressing Changed, Hydrogel Applied Sonia Wound Tissue: Erythema, Non-blanching, Swollen, Painful/Tender Sonia Wound Swelling: Moderate Wound Bed Color: [place], Red Wound Bed Constitution: Red/[place] - Non Granular Tissue Wound Edges: Irregular Site Measurement - Head-to-Toe Length X Width X Depth (cm): 1.5x1.6x0.1 Pressure Injury Stage: Stage 2 Pressure Injury Present on Admit: No Skin Integrity Problem Comment: Hospital acquired partial thickness pressure injury. Wound bed cleaned with normal saline and patted dry. Education provided to patient re: pressure injury etiology, prevention of pressure injuries or worsening current wound, wound gel and dressing for healing, offloading, reducing shear by lowering head of bed and by ambulating to chair for sitting, and options for outpatient wound care. Patient stated that she is likely going to [facility] for rehab. PT Chasity in room for care. Patient plan of care discussed with Amy CAR. Wound care will follow.
--- NOTE | 2018-01-18 19:37 | PDGENHP ---
History & Physical Chief Complaint: CHEST FLUID History of Present Illness: 60-YEAR-OLD FEMALE WHO IS BEING EVALUATED FOR LEFT PLEURAL EFFUSION AND POSSIBLE EMPYEMA. SHE HAS HAD PNEUMONIA SYMPTOMS BUT NO MAJOR FEVER. CT SCAN IN CHEST X-RAY SUGGESTS A LEFT PLEURAL EFFUSION VERSUS EMPYEMA. THORACENTESIS WAS UNSUCCESSFUL IN OBTAINING ANY SIGNIFICANT FLUID OR CHANGE IN THE COLLECTION. I WAS CONSULTED TO CONSIDER VATS PROCEDURE. RISKS AND OPTIONS WERE FULLY DISCUSSED WITH THE PATIENT WHO WISHED TO PROCEED. PRESENT ILLNESS IS COMPLICATED BY RECENT NON STEMI OH. HOWEVER SHE HAS HAD SURGERY ALL READY FOR A FOREARM FRACTURE Pertinent Past, Social, Family History: PAST HISTORY: ORIF OF LEFT ARM. ALLERGIES AMOXICILLIN PPI EYES SULFA. MEDICATIONS LISTED IN HER CHART. REVIEW OF SYSTEMS NONCONTRIBUTORY ON A FULL 10 POINT REVIEW EXCEPT RELATED TO THE HPI. SOCIAL HISTORY: NONSMOKER. FAMILY HISTORY NONCONTRIBUTORY Relevant Physical Exam: GENERAL: ALERT COOPERATIVE 60-YEAR-OLD FEMALE NO ACUTE DISTRESS, AFEBRILE. CHEST CLEAR SYMMETRIC BREATH SOUNDS BUT DULLNESS IN THE LEFT BASE WITH A ELEVATED LEFT DIAPHRAGM. COR REGULAR RHYTHM. ABDOMEN SOFT SLIGHTLY DISTENDED NONTENDER. EXTREMITIES FULL RANGE OF MOTION FULL PULSES, LEFT ARM IN A SPLINT IN ORTHOPEDIC DRESSING. NEUROLOGIC EXAM IS PHYSIOLOGIC AND SYMMETRIC. PSYCH ALERT, ORIENTED, COOPERATIVE Cardiorespiratory Assessment: IMPRESSION: LEFT CHEST FLUID COLLECTION SUGGESTED TO EMPYEMA SINCE THORACENTESIS WAS UNABLE TO OBTAIN ANY FLUID. PLAN: VATS PROCEDURE WHEN MEDICALLY CLEARED BY CARDIOLOGY/RISKS AND OPTIONS FULLY DISCUSSED WITH THE PATIENT WHO WISHES TO PROCEED
[2018-01-18] MEDS ORDERED: diphenhydrAMINE 25 MG CAP PO PRN (20:30)
[2018-01-18] MEDS: ATORVASTATIN CALCIUM 10 MG TAB PO SCH (21:30)
[2018-01-18] MEDS: HYDROCORTISONE 1% CREAM TP PRN (21:38)
[2018-01-19 04:45] LABS: PLATELET COUNT 636 10^3/uL (150-400)
[2018-01-19] MEDS: SENNOSIDES/DOCUSATE SODIUM TAB PO SCH (07:27)
[2018-01-19] MEDS: ACETAMINOPHEN 500 MG TAB PO SCH (08:12)
[2018-01-19] MEDS: LEVOTHYROXINE 150 MCG TAB PO SCH (08:12)
[2018-01-19 08:22] VITALS: BP 123/67
[2018-01-19] MEDS: buPROPion SR 150 MG TAB PO SCH (08:23)
[2018-01-19] MEDS: METHADONE HCL 10 MG TAB PO SCH (08:23)
[2018-01-19] MEDS: PREGABALIN 50 MG CAP PO SCH (08:23)
[2018-01-19] MEDS: SERTRALINE HCL 100 MG TAB PO SCH (08:23)
[2018-01-19] MEDS: HYDROCORTISONE 1% CREAM TP PRN (08:23)
[2018-01-19] MEDS: FAMOTIDINE 20 MG TAB PO SCH (08:23)
--- NOTE | 2018-01-19 09:10 | PDIAF ---
- Diagnosis Diagnosis: Aspiration PNA, chronic pain Code Status: Full Code - Medication Management Discharge Medications: electronically signed and located in the Home Medication List. PICC Care - Routine: N/A - Orders Services needed: Registered Nurse, Physical Therapy, Occupational Therapy Diet Recommendation: no restrictions on diet Diet Texture: Regular Texture Diet, Thin Liquids, Meds Whole w/Liquids Additional Instructions: Follow up with Dr. Zambrano in 1 week for repeat CXR and follow up. Please follow up within 3- 4 weeks of discharge with outpatient [facility] Center if you continue to have issues with your wounds: You may reach them at [phone] for an appointment and continued management of your wounds. Please call them [facility] to schedule your appointment as they fill up quickly. If before that time you have any issues, please follow up with your PCP. Wound care: Bedsore (Pressure injury) care: You have a stage 2 pressure injury (also known as a bedsore) on the very lowest part of your back (the sacrum.) To help heal this wound and avoid further injury please do the followin. Reposition yourself frequently, at least every 15 minutes when sitting. Try to stand for at least 3 min every hour so that the tissues fully reperfuse with blood. We recommend sitting on an air cushion. Please never use a doughnut. 2. When youre in bed, try to rest on your side as much as possible, and change position every two hours (for example, turn or tilt from your right side toward your left).~ If you sleep on a sleep number or medical bed, keep the head of the bed below 30 degrees and keep all pressure off your low back for at least 5 minutes at least every two hours.~ 3. As needed, you may use Calazime, dimethicone moisture barrier cream, or any [id number] diaper rash cream to help prevent or treat a moisture-related rash to your bottom area and buttocks. 4. Please contact [facility] outpatient [facility] for an appointment, at , If your wounds re/open or dont improve, or if you have any further questions or concerns. Rosa M Cantu RN Wound Care Team - Labs/Radiology CBC w/diff Date: 01/22/18 (results to lorena carcamo) - Follow Up Care Current Providers and Referrals: Patient,NotPresent [Unknown] - As per Instructions Deangelo Zambrano MD [Medical Doctor] -
--- NOTE | 2018-01-19 09:42 | ASMTDCNOTE ---
Case Management Discharge Discharge Order Complete? Answers: Yes Patient to Obtain Answers: Other Notes: [facility] SNF Medications Transportation Arranged Answers: Other Notes: [facility] w/c transportation Transport will Pick (Date 01/19/2018 10:30 AM & Time) EMTALA Complete Answers: No Case Management Transport Answers: No Form Complete Faxed Final Orders Answers: Yes Agency/Facility Transfer Answers: Yes Report Printed & Faxed to Receiving Agency Family Notified Answers: Yes Discharge Comments Notes: CM spoke to Dr. Eli regarding d/c POC. Pt is being discharged today to [facility]. DC orders sent. CM provided JOSEP Esqueda w/ phone number to give report. CM spoke to pts daughter Toya and notified her of the d/c. CM provided pt w/ clothes from donations. CM available for changes. Plan: [facility] Date Signed: 01/19/2018 09:42 AM Electronically Signed By:NATHALIE Ramirez
--- NOTE | 2018-01-19 09:44 | ASDISCHSUM ---
Discharge Information Plan Status:SNF Medically Cleared to Leave:01/18/2018 Discharge Date:01/18/2018 CM D/C Disposition: ADT D/C Disposition:Long Term Facility Projected Discharge Date:01/19/2018 11:00 AM Transportation at D/C: Discharge Delay Reason: Follow-Up Date:01/19/2018 11:00 AM Discharge Slot: Final Diagnosis: Placement Information Referral Type:*[facility]/SNF Referral ID:[id number] Provider Name:[facility] Address 1:[address] Address 2: City:[place] Selection Factors: State:[place] Patient Contact Information Contact Name:TOYACKLouis Relationship:Daughter Address: Work Phone: [place] [facility] [place] Phone: [facility] Code: Email: Financial Information Financial Class:Medicare Advantage Plans Primary Plan Desc:XU PEDERSON PPO MEDICARE Primary Plan Number:[id number] Secondary Plan Desc:[place] Secondary Plan Number:[id number] Assessment Information LACE LACE Length of stay for Answers: 14 days or more current admission Acuity / Level of Answers: Yes Care: Did the patient have an inpatient admission? Comorbidities - select Answers: Opioid dependence all that apply / Chronic pain Other Notes: GERD; Hypothyroid # of Emergency department Answers: 1-2 visits in the last 6 months Social determinants Answers: Mental health diagnosis (anxiety, depression, pers onality disorders, etc.) Score: 19 Date Signed: 01/19/2018 09:42 AM Electronically Signed By:NATHALIE Ramirez [facility] CM Progress Note CM Note CM Note Notes: Pt was admitted with elevated troponins and a wrist fx. Apparently she fell out of bed Thursday and did not come to ED. Pt lives alone and has a hx of depression and chronic pain and is prescribed oxycodone and methadone. Pt's daughter Toya lives close by. CM will follow for any d/c needs. Date Signed: 01/05/2018 04:00 PM Electronically Signed By:GENIE Brooks [facility] Progress Note CM Note CM Note Notes: Pts case discussed w/ JOSEP Delong regarding d/c POC. Therapies are recommending SNF. CM met w/ pt for dispo planning. CM provided pt w/ senior blue book. Pt would like CM to call her daughter to discuss it further w/ her. CM spoke to Toya, daughter. She would like referrals made to [facility] and [facility]. Referrals sent. Toya will research facilities and let CM know. MARCK completed triggered PASRR and sent it to [facility]. CM to follow. Plan: SNF Date Signed: 01/07/2018 12:13 PM Electronically Signed By:NATHALIE Ramirez [facility] MARCK Progress Note CM Note CM Note Notes: Pts case discussed w/ Dr. Roman. Pt is getting a stress test today. Pt will get surgery at some point during this hospitalization. MARCK spoke to pts daughter Toya regarding placement. Toya would like to go with [facility]. [facility] is out of network w/ pt. [facility] called Toya and informed her of this. Mary Carmen from [facility] will be calling Toya. CM to touch base tomorrow once Toya tours [facility]. CM to follow. Plan: SNF Date Signed: 01/08/2018 02:13 PM Electronically Signed By:NATHALIE Ramirez [facility] MARCK Progress Note CM Note CM Note Notes: Malachi (P# [phone], press option 2 then [id number]) called from [facility] regarding this pts case. Apparently [facility], [facility] and [facility] have all started auth when CM haved inform them to hold off. CM spoke to daughter Toya and informed her that she does not need to go w/ a facility that is out of network if she does not want to. Toya will tour [facility] tomorrow. CM informed Toya that all SNFs have accepted pt. CM to follow. Date Signed: 01/08/2018 04:26 PM Electronically Signed By:NATHALIE Ramirez [facility] MARCK Progress Note CM Note MARCK Note Notes: Spoke with pt's daughter Toya today [phone]. Pt will be discharging to a SNF when medically cleared. Toya would like either [facility] or [facility]. CM will continue to follow. Date Signed: 01/11/2018 02:39 PM Electronically Signed By:GENIE Brooks [facility] CM Progress Note CM Note CM Note Notes: [facility], they have [employer] insurance auth. D/c plan of care: [facility] when medically stable. Date Signed: 01/12/2018 02:34 PM Electronically Signed By:GENIE Middleton [facility] CM Progress Note CM Note CM Note Notes: Spoke w/RN, pt not ready for dc. Will dc to [facility] when medically stable, CM sent updated notes. DC Plan: [facility] Date Signed: 01/15/2018 02:13 PM Electronically Signed By:Adela Guido RN [facility] CM Progress Note CM Note CM Note Notes: Pts case discussed w/ JOSEP Leiva. Updates sent to [facility]. Pt is not medically stable to d/c yet. CM to follow. Plan: [facility] Date Signed: 01/18/2018 11:17 AM Electronically Signed By:NATHALIE Ramirez Case Management Discharge Plan Note Case Management Discharge Discharge Order Complete? Answers: Yes Patient to Obtain Answers: Other Notes: [facility] SNF Medications Transportation Arranged Answers: Other Notes: [facility] w/c transportation Transport will Pick (Date 01/19/2018 10:30 AM & Time) ANGELALA Complete Answers: No Case Management Transport Answers: No Form Complete Faxed Final Orders Answers: Yes Agency/Facility Transfer Answers: Yes Report Printed & Faxed to Receiving Agency Family Notified Answers: Yes Discharge Comments Notes: spoke to Dr. Eli regarding d/c POC. Pt is being discharged today to [facility]. DC orders sent. CM provided JOSEP Esqueda w/ phone number to give report. CM spoke to pts daughter Toya and notified her of the d/c. CM provided pt w/ clothes from donations. CM available for changes. Plan: [facility] Date Signed: 01/19/2018 09:42 AM Electronically Signed By:NATHALIE Ramirez Intervention Information
--- NOTE | 2018-01-19 18:50 | GDS ---
DISCHARGE DIAGNOSES: 1. Aspiration pneumonia, status post 10 days of ceftriaxone and Flagyl. 2. Status post video-assisted thoracoscopic surgery for parapneumonic effusion on January 14, by Dr. Tani Zambrano. 3. Type 2 zyh-ZN-mngqaam elevation myocardial infarction. 4. Acute on chronic metabolic encephalopathy, now at baseline. 5. Chronic pain with continuous opioid dependence. 6. Hypothyroidism. 7. Radial fracture. 8. Rhabdomyolysis, resolved. 9. Anemia, stable. CONSULTANTS: 1. Taj Davidson, Orthopedic Surgery. 2. Ferny Ahumada, Cardiology. 3. Dr. Tani Zambrano, General Surgery. 4. Dr. Nicholas Garcia, Pulmonology. HISTORY: For details, please see history and physical dated January 05, 2018. 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 Workup revealed pneumonia. In addition, she had an elevated troponin and seemed more confused than her baseline. S he was admitted to the hospital for further management. HOSPITAL COURSE: Patient was admitted to the med/surg unit. It is presumed she suffered from aspira tion pneumonia. She was treated with ceftriaxone and Flagyl for 10 days. Her troponin was elevated on admission at 1.2. This has trended down to normal. Cardiology consult was obtained, and she unde rwent a nuclear medicine stress test, which did not show any evidence of myocardial ischemia, though it is noted this was a technically limited evaluation. Troponin elevation was thought likely seconda ry to strain in the setting of rhabdomyolysis, hypotension, and cardiac hypoperfusion. In addition, she was found to have a left radial fracture. Orthopedic Surgery consulted, and once her cardiac sta tus was stabilized, she went to the operating room for ORIF. Her pneumonia was complicated by a para pneumonic effusion. She ultimately underwent VATS procedure by Dr. Tani Zambrano. Her respiratory s tatus improved. At the time of discharge, she is back on her baseline oxygen requirement of 1 L/aurora te. She has been afebrile. Her white blood cell count has normalized. She is still weak, and [facility] services are recommending ongoing rehab at a group home facility. DISPOSITION: Patient is discharged to a group home facility in stable condition. FOLLOWUP: 1. Dr. Tani Zambrano in 1 week for repeat chest x-ray. 2. Dr. Taj Davidson, Orthopedic Surgery. DISCHARGE MEDICATIONS: [facility] see [facility] for completed outpatient medication list. New medication s on discharge include Tylenol 1000 mg p.o. q.8 hours; oxycodone 5-10 mg p.o. q.2 hours p.r.n., #30, no refills; MiraLAX 17 g p.o. daily p.r.n.; Senokot 1-2 tabs p.o. b.i.d. She will continue all other outpatient medications as previously prescribed. /[id number]/MODL
== END 2018-01-19 10:39 | DRG 163 ==
LOC: EDUNIT# → SUPCPDRO 09:27 → F2W 15:06 → F3N 01-10 09:34 → F3E 01-12 19:45
PROVIDERS: ADMIT Internal Medicine; ATTEND Internal Medicine
PROC: 0PSJ04Z Reposition Left Radius with Internal Fixation Device, Open Approach (ICD-10-PCS; principal; 2018-01-10 10:00)
PROC: 0W9B3ZZ Drainage of Left Pleural Cavity, Percutaneous Approach (ICD-10-PCS; 2018-01-12)
PROC: 0BNJ4ZZ Release Left Lower Lung Lobe, Percutaneous Endoscopic Approach (ICD-10-PCS; 2018-01-14)
DX: J69.0 Pneumonitis due to inhalation of food and vomit (principal); I21.4 Non-ST elevation (NSTEMI) myocardial infarction; G93.49 Other encephalopathy; F11.20 Opioid dependence, uncomplicated; S52.572A Other intraarticular fracture of lower end of left radius, initial encounter for closed fracture; S52.612A Displaced fracture of left ulna styloid process, initial encounter for closed fracture; L89.152 Pressure ulcer of sacral region, stage 2; E86.0 Dehydration; G89.29 Other chronic pain; E03.9 Hypothyroidism, unspecified; T79.6XXA Traumatic ischemia of muscle, initial encounter; D64.9 Anemia, unspecified; W06.XXXA Fall from bed, initial encounter; Y92.013 Bedroom of single-family (private) house as the place of occurrence of the external cause; Z80.1 Family history of malignant neoplasm of trachea, bronchus and lung; Z82.49 Family history of ischemic heart disease and other diseases of the circulatory system; Z87.820 Personal history of traumatic brain injury
CPT/HCPCS: 80307; 84484-PO; 92507-GN; 92523-GN; 92610-GN; 96365; 97110-GP; 97112-GP; 97116-GP; 97162-GP; 97165-GO; 97530-GP; 97535-GO; A9500; C1713; C1769; G0480; G8978-GP-CL; G8979-GP-CI; J0690; J0696; J1100; J1170; J1335; J1650; J1885; J2250; J2270; J2405; J2704; J2785; J2795; J3010; Q9967

== ENCOUNTER 2018-03-12 12:49 | Emergency (ER) | payer OTHER, MEDICAID ==
--- NOTE | 2018-03-12 13:30 | EDPHY ---
H & P Stated Complaint: mech fall backwards hitting head, ? loc, c/o moon/R eye pain Time Seen by Provider: 03/12/18 13:30 - Medical/Surgical History Hx Asthma: No Hx Chronic Respiratory Disease: Yes Hx Diabetes: No Hx Cardiac Disease: Yes Hx Renal Disease: No Hx Cirrhosis: No Hx Alcoholism: No Hx HIV/AIDS: No Hx Splenectomy or Spleen Trauma: No Other PMH: chronic back pain and on oxy and methadone for years. Depression, GERD, hypothryroid, copd, sleep apnea, hyperlipidemia - Social History Smoking Status: Current every day smoker Constitutional: Initial Vital Signs Temperature (C) 37.1 C 03/12/18 12:50 Heart Rate 79 03/12/18 12:50 Respiratory Rate 18 03/12/18 12:50 Blood Pressure 120/69 03/12/18 12:50 O2 Sat (%) 95 03/12/18 12:50 O2 Delivery Mode Nasal Cannula O2 (L/minute) 2 Allergies/Adverse Reactions: amoxicillin Allergy (Verified 01/05/18 11:24) Hives Proton Pump Inhibitors Allergy (Verified 01/10/18 23:09) Diarrhea Sulfa (Sulfonamide Antibiotics) Allergy (Verified 01/10/18 23:09) Itching Home Medications: Medication Instructions Recorded Levothyroxine [Synthroid 150 mcg 150 mcg PO DAILY06 06/18/12 (*)] Pregabalin [Lyrica 50mg (*)] 50 mg PO TID 07/16/12 Atorvastatin Calcium [Lipitor 10 10 mg PO HS 01/05/18 mg (*)] Ergocalciferol [Vitamin D2 (*)] 50,000 unit PO TH 01/05/18 Promethazine HCl [Phenergan 25mg 25 mg PO DAILY PRN 01/05/18 (*)] Ranitidine HCl [Zantac] 300 mg PO BID 01/05/18 SUMAtriptan [Imitrex 50 MG (*)] 50 - 100 mg PO DAILY PRN 01/05/18 Sertraline HCl [Zoloft 100mg (*)] 100 mg PO DAILY 01/05/18 Sucralfate [Carafate 1gm/10ml Oral 1 gm PO QID PRN 01/05/18 Liquid (*)] buPROPion SR [Wellbutrin 150mg SR 150 mg PO DAILY 01/05/18 (*)] Acetaminophen [Tylenol ES 500 mg 1,000 mg PO Q8HRS tab 01/19/18 (*)] Calcium Carbonate [Tums 500MG (*)] 500 mg PO TID PRN tab.chew 01/19/18 Methadone HCl [Methadone HCl 10 mg 30 mg PO TID #60 tab 01/19/18 (*)] Methyl Salicylate/Menthol [Bengay 1 inga TP Q6HRS PRN oint 01/19/18 (*)] Polyethylene Glycol 3350 [Miralax 17 gm PO DAILY PRN pkt 01/19/18 17 gm (*)] Sennosides/Docusate Sodium 1 - 2 tab PO BID tab 01/19/18 [Senokot-S] oxyCODONE IR [Oxycodone Ir (*)] 5 - 15 mg PO Q3H PRN #30 tab 01/19/18 Medical Decision Making ED Course/Re-evaluation: CHIEF COMPLAINT: HISTORY OF PRESENT ILLNESS: must have 4 elements: Location, Quality, Severity , Duration, Timing, Context, Modifying Factors, Associated Signs and Symptoms REVIEW OF SYSTEMS: A comprehensive 10 system review of systems is otherwise negative aside from elements mentioned in the history of present illness and medical decision making. PHYSICAL EXAM: HR, BP, O2 Sat, RR. Temp noted General Appearance: Alert, well hydrated, appropriate, and non-toxic appearing. Head: Atraumatic without scalp tenderness or obvious injury Eyes: Pupils equal, round, reactive to light and accommodation, EOMI, no trauma , no injection. Ears: Clear bilaterally, no perforation, normal landmarks Nose: Atraumatic, no rhinorrhea, clear. Throat: There is no erythema or exudates, no lesions, normal tonsils, mucus membranes moist. Neck: Supple, 2+ carotid upstroke, nontender, no lymphadenopathy. Respiratory: No retractions, no distress, no wheezes, and no accessory muscle use. Lungs are clear to auscultation bilaterally. Cardiovascular: Regular rate and rhythm, no murmurs, rubs, or gallops. Bilateral carotid, radial, dorsalis pedis, and posterior tibial pulses intact. Good capillary refill all extremities. Gastrointestinal: Abdomen is soft, nontender, non-distended, no masses, no rebound, no guarding, no peritoneal signs. Musculoskeletal: Normal active ROM of all extremities, atraumatic. Neurological: Alert, appropriate, and interactive. The patient has normal DTRs and non-focal cranial nerves, motor, sensory, and cerebellar exam. Skin: No rashes, good turgor, no nodules on palpation. Past medical history: Past surgical history: Family history: Social history: DIAGNOSTICS/PROCEDURES/CRITICAL CARE TIME: DIFFERENTIAL DIAGNOSIS: MEDICAL DECISION MAKING: Departure - Departure Referrals: NONE *PRIMARY CARE P,. [Primary Care Provider] - As per Instructions
--- NOTE | 2018-03-12 14:02 | EDPHY ---
H & P Stated Complaint: mech fall backwards hitting head, ? loc, c/o moon/R eye pain Time Seen by Provider: 03/12/18 13:30 - Medical/Surgical History Hx Asthma: No Hx Chronic Respiratory Disease: Yes Hx Diabetes: No Hx Cardiac Disease: Yes Hx Renal Disease: No Hx Cirrhosis: No Hx Alcoholism: No Hx HIV/AIDS: No Hx Splenectomy or Spleen Trauma: No Other PMH: chronic back pain and on oxy and methadone for years. Depression, GERD, hypothryroid, copd, sleep apnea, hyperlipidemia - Social History Smoking Status: Current every day smoker Constitutional: Initial Vital Signs Temperature (C) 37.1 C 03/12/18 12:50 Heart Rate 79 03/12/18 12:50 Respiratory Rate 18 03/12/18 12:50 Blood Pressure 120/69 03/12/18 12:50 O2 Sat (%) 95 03/12/18 12:50 O2 Delivery Mode Room Air O2 (L/minute) 2 Allergies/Adverse Reactions: amoxicillin Allergy (Verified 01/05/18 11:24) Hives Proton Pump Inhibitors Allergy (Verified 01/10/18 23:09) Diarrhea Sulfa (Sulfonamide Antibiotics) Allergy (Verified 01/10/18 23:09) Itching Home Medications: Medication Instructions Recorded Levothyroxine [Synthroid 150 mcg 150 mcg PO DAILY06 06/18/12 (*)] Pregabalin [Lyrica 50mg (*)] 50 mg PO TID 07/16/12 Atorvastatin Calcium [Lipitor 10 10 mg PO HS 01/05/18 mg (*)] Ergocalciferol [Vitamin D2 (*)] 50,000 unit PO TH 01/05/18 Promethazine HCl [Phenergan 25mg 25 mg PO DAILY PRN 01/05/18 (*)] Ranitidine HCl [Zantac] 300 mg PO BID 01/05/18 SUMAtriptan [Imitrex 50 MG (*)] 50 - 100 mg PO DAILY PRN 01/05/18 Sertraline HCl [Zoloft 100mg (*)] 100 mg PO DAILY 01/05/18 Sucralfate [Carafate 1gm/10ml Oral 1 gm PO QID PRN 01/05/18 Liquid (*)] buPROPion SR [Wellbutrin 150mg SR 150 mg PO DAILY 01/05/18 (*)] Acetaminophen [Tylenol ES 500 mg 1,000 mg PO Q8HRS tab 01/19/18 (*)] Calcium Carbonate [Tums 500MG (*)] 500 mg PO TID PRN tab.chew 01/19/18 Methadone HCl [Methadone HCl 10 mg 30 mg PO TID #60 tab 01/19/18 (*)] Methyl Salicylate/Menthol [Bengay 1 inga TP Q6HRS PRN oint 01/19/18 (*)] Polyethylene Glycol 3350 [Miralax 17 gm PO DAILY PRN pkt 01/19/18 17 gm (*)] Sennosides/Docusate Sodium 1 - 2 tab PO BID tab 01/19/18 [Senokot-S] oxyCODONE IR [Oxycodone Ir (*)] 5 - 15 mg PO Q3H PRN #30 tab 01/19/18 Ibuprofen [Motrin] 800 mg PO Q8 #20 tab 03/12/18 Medical Decision Making - Diagnostics Imaging Results: Imaging Impressions Cervical Spine CT 03/12/18 14:03 Impression: No evidence for acute intracranial abnormality. CT Cervical Spine Without Contrast History: Fall. Trauma. Technique: 1.5 mm helical images were obtained of the cervical spine without contrast. Multiplanar reformation was performed. Radiation dose reduction technique was utilized. Findings: No evidence for acute fracture. No significant spondylolisthesis. Mild disk height narrowing and osteophytosis at C5-C6. Degenerative change in the anterior arch of C1 articulation with the dens causing no significant encroachment. Uncovertebral joint hypertrophy and spurring and facet arthropathy at multiple levels with mild neural foraminal narrowing. Facet arthropathy is seen in the upper thoracic spine. Minimal scarring is seen at the left lung apex. No suspicious lymphadenopathy in the neck. Impression: No evidence for acute fracture of the cervical spine. Mild multilevel degenerative change in the cervical and upper thoracic spine. Results called and discussed with Alonzo Christensen MD, on 03/12/2018, 14:54. Head CT 03/12/18 14:03 Impression: No evidence for acute intracranial abnormality. CT Cervical Spine Without Contrast History: Fall. Trauma. Technique: 1.5 mm helical images were obtained of the cervical spine without contrast. Multiplanar reformation was performed. Radiation dose reduction technique was utilized. Findings: No evidence for acute fracture. No significant spondylolisthesis. Mild disk height narrowing and osteophytosis at C5-C6. Degenerative change in the anterior arch of C1 articulation with the dens causing no significant encroachment. Uncovertebral joint hypertrophy and spurring and facet arthropathy at multiple levels with mild neural foraminal narrowing. Facet arthropathy is seen in the upper thoracic spine. Minimal scarring is seen at the left lung apex. No suspicious lymphadenopathy in the neck. Impression: No evidence for acute fracture of the cervical spine. Mild multilevel degenerative change in the cervical and upper thoracic spine. Results called and discussed with Alonzo Christensen MD, on 03/12/2018, 14:54. Imaging: Discussed imaging studies w/ at home independent call center agent Radiologist, I viewed and interpreted images myself ED Course/Re-evaluation: CHIEF COMPLAINT: Headache, fall HISTORY OF PRESENT ILLNESS: The patient is a 62 y/o female with a history of chronic back pain who arrives complaining of a headache secondary to a fall this morning around 10:00. about 4 hours ago. She was transitioning from her wheelchair to the toilet and became unsteady. She fell backwards and thinks she hit her head on the ground. She thinks she lost consciousness for a few moments. She currently complains of a "pounding" headache along the back of her head. She has some associated nausea without vomiting. Her vision feels blurrier than normal. She denies unilateral weakness or paresthesias. No recent illness, chest pain, fever, abdominal pain, cough, or diarrhea. REVIEW OF SYSTEMS: A comprehensive 10 system review of systems is otherwise negative aside from elements mentioned in the history of present illness and medical decision making. PHYSICAL EXAM: HR, BP, O2 Sat, RR. Temp noted General Appearance: Alert, well hydrated, appropriate, and non-toxic appearing. Head: Atraumatic without scalp tenderness or obvious injury Eyes: Pupils equal, round, reactive to light and accommodation, EOMI, no trauma , no injection. Ears: Clear bilaterally, no perforation, normal landmarks Nose: Atraumatic, no rhinorrhea, clear. Throat: There is no erythema or exudates, no lesions, normal tonsils, mucus membranes moist. Neck: Supple, non-tender, no lymphadenopathy. Respiratory: No retractions, no distress, no wheezes, and no accessory muscle use. Lungs are clear to auscultation bilaterally. Cardiovascular: Regular rate and rhythm, no murmurs, rubs, or gallops. Good capillary refill all extremities. Gastrointestinal: Abdomen is soft, non-tender, non-distended, no masses, no rebound, no guarding, no peritoneal signs. Musculoskeletal: Normal active ROM of all extremities, atraumatic. Neurological: Alert, appropriate, and interactive. The patient has non-focal cranial nerves, motor, sensory, and cerebellar exam. Skin: No rashes, good turgor, no nodules on palpation. PAST MEDICAL HISTORY: Chronic back pain, chronic opioid dependence, migraines, hypothyroidism, dyslipidemia, depression PAST SURGICAL HISTORY: Total abdominal hysterectomy, lumbar fusion 2000 SOCIAL HISTORY: Lives alone. Vapes. Prior history of drinking DIAGNOSTICS/PROCEDURES/CRITICAL CARE TIME: Head CT: negative for acute findings Neck CT: negative for acute findings DIFFERENTIAL DIAGNOSIS: The differential diagnosis for the patient's head injury included but was not limited to concussion, skull fracture, intra- parenchymal contusion, subarachnoid, subdural and epidural hematoma. MEDICAL DECISION MAKING: This is a 62 y/o female with a history of chronic back pain and narcotic dependency who presents with a headache after a falling and striking her head in the bathroom today. Her exam is unremarkable. Due to possible LOC, cannot exclude her based on [place] CT guidelines. Plan for head and neck CTs to rule out acute intracranial injury. CTs are negative. Reassessed patient and discussed imaging. She continues to have a headache, but her nausea has improved. Her back pain is the same as at baseline. Neuro exam remains nonfocal. She is comfortable going home with standard care and follow up instructions. Ibuprofen administered at discharge at her request. Return precautions discussed. Departure - Departure Disposition: Home, Routine, Self-Care Clinical Impression: Headache Qualifiers: Headache type: unspecified Headache chronicity pattern: acute headache Intractability: not intractable Qualified Code(s): R51 - Headache Condition: Good Instructions: Acute Headache (ED) Additional Instructions: Follow up with your primary care provider as needed for unimproved symptoms over the next few days. Return to the ED for any worsening of condition. Referrals: Aracelis Blake DO [Doctor of Osteopathy] - As per Instructions Prescriptions: Ibuprofen [Motrin] 800 mg PO Q8 #20 tab Report Scribed for: Alonzo Christensen Report Scribed by: Emily Clinton Date of Report: 03/12/18 Time of Report: 15:58
[2018-03-12 15:52] VITALS: BP 135/96
== END 2018-03-12 15:51 | disposition home or self-care (01) ==
LOC: EDUNIT#
DX: R51 Headache (principal); F17.200 Nicotine dependence, unspecified, uncomplicated; M54.9 Dorsalgia, unspecified